=== PATIENT | male | born 1955 | race Caucasian/White ===

== ENCOUNTER 2019-12-17 16:28 | Emergency (ER) | payer OTHER, SELFPAY ==
[2019-12-17 16:35] VITALS: BP 106/69; PULSE 96; RESP 18; TEMP 36.2; O2SAT 100
--- NOTE | 2019-12-17 16:53 | ED.GENADULT ---
HPI - General Adult General Chief complaint: Nausea/Vomiting/Diarrhea Stated complaint: vomiting/anxiety History of Present Illness HPI narrative: Patient is a 64-year-old male with history significant for hypertension and hyperlipidemia presents to the urgent care via POV for evaluation of diarrhea that began approximately 1 week ago. Additionally, patient reports decreased appetite and fluid intake that began today. He states he is also feeling jittery and has concerns about black, tarry stools that began today. He states stools are small . He reports 1 vomiting episode that occurred at 3 am today. Vomitus contents was water as reported via patient. He reports taking ASA 81 mg daily although has been taking ASA 325 mg tablets QID for 3-4 days for chronic neuropathy and chronic low back pain. Denies past abdominal medical history. Pertinent negatives fever, chills, sweats, malaise, recent weight loss, lymphadenopathy, headache, sore throat, dizziness, LOC, urinary sxs, flank pain, extremity paresthesias, bright red bloody stools, nausea, vomiting, diarrhea, constipation, belching, bloating, dry mouth, heartburn, jaundice, vomiting blood, and testicular pain. Related Data Home Medications Medication Instructions Recorded Confirmed hydrochlorothiazide 08/23/19 losartan 08/23/19 rosuvastatin mg 08/23/19 aspirin 12/17/19 Allergies Allergy/AdvReac Type Severity Reaction Status Date / Time No Known Allergies Allergy Verified 08/23/19 08:52 Review of Systems Review of Systems: Narrative: All other systems reviewed and are negative PMFSH Past Medical History Medical History HLD (hyperlipidemia) HTN (hypertension) Surgical History Surgical History No significant past surgical history Social History Social History Smoking status: Unknown if ever smoked Comments I have reviewed and agree with the patient's past medical, surgical, social, and family hx as documented by the RN. There is no relevant family history pertinent to the presenting complaint. Exam Narrative: Exam Narrative: GENERAL: Well-appearing, well-nourished, and in no acute distress. HEAD: Normocephalic, atraumatic. NECK: Supple. No lymphadenopathy or nuchal rigidity. EYES: PERRLA and EOMI. No evidence of erythema, swelling, sunken eyes, or facial swelling appreciated. ENT: Mucous membranes moist and pink. CHEST: Lung sounds are clear to auscultation in bilateral lung leal. No respiratory distress. HEART: Regular rate and rhythm. No murmur, gallop, or rub heard. ABDOMEN: Soft, non-tender, non-distended, normal active bowel sounds in all quadrants. No guarding. No rebound tenderness. No pulsatile or palpable abdominal mass(es). No CVATGU: Bladder non-distended, non-tender : Rectal tone normal. Soft stool palpated. Mucosa matos smooth. Guiac testing positive. Black stool present on external exam. EXTREMITIES: Normal range of motion. No edema. SKIN: Warm, dry, no rash. No skin color changes. Excellent turgor. NEURO: No focal deficits. Alert and oriented x3. PSYCH: appears anxious Course Course Emergency Course: The patient/guardian displays adequate decision making capability and despite a detailed discussion of alternatives, benefits, risks, and consequences refuses EMS transport to ER. Will transport via POV. Vital Signs Vital signs: Vital Signs Temperature 97.1 F L 12/17/19 16:35 Pulse Rate 96 12/17/19 16:35 Respiratory Rate 18 12/17/19 16:35 Blood Pressure 106/69 12/17/19 16:35 Pulse Oximetry 100 12/17/19 16:35 Temperature 97.1 F L 12/17/19 16:35 Pulse Rate 96 12/17/19 16:35 Respiratory Rate 18 12/17/19 16:35 Blood Pressure 106/69 12/17/19 16:35 Pulse Oximetry 100 12/17/19 16:35 Transfer Transfered to:
--- NOTE | 2019-12-17 17:15 | PC.NURSE ---
after evaluation with palliative senior np, requested to be further evaluated in er.
--- NOTE | 2019-12-17 17:29 | PC.NURSE ---
positive hemoccult test done by transmission repairer with rn at bedside.
--- NOTE | 2019-12-17 17:29 | PC.NURSE ---
has neighbor here to provide transportation to er.
== END 2019-12-17 17:32 | disposition short-term general hospital (02) ==
PROVIDERS: Emergency Provider Nurse Practitioner Family
DX: K92.1 Melena (principal); E78.5 Hyperlipidemia, unspecified; I10 Essential (primary) hypertension; Z79.82 Long term (current) use of aspirin; G62.9 Polyneuropathy, unspecified
CPT/HCPCS: 99213; G0463

== ENCOUNTER 2019-12-17 17:50 | Inpatient (IN) | payer OTHER, SELFPAY ==
--- NOTE | ~2019-12-17 | NM_ITS ---
EXAMINATION: NM renal flow and function DATE: 12/18/2019 17:30 CDT INDICATION: Acute renal insufficiency TECHNIQUE: 7.4 mCi Tc-99m MAG3 was administered IV. 40 mg furosemide was administered IV immediately afterward. The patient was scanned in the supine position. A posterior abdominal radionuclide angiog ingrid was obtained. A subsequent time course of static images of the kidneys, ureters, and bladder was obtained. COMPARISON: None FINDINGS: The posterior abdominal radionuclide angiogram and sequential static images show normal siz e, position, and morphology of the kidneys. Peak renal parenchymal uptake was 1.36 min in right kidne y and 1.79 min in left kidney (normal peak 3-5 minutes). The relative early renal uptake was 51% on the right and 49% on the left (<40% is abnormal). No abnormalities of the ureters or bladder are see n. T1/2 for clearance of activity from the right kidney and proximal collecting system was 15.62 minutes . T1/2 for clearance of activity from the left kidney and proximal collecting system was 23.05 minutes. Notes on interpretation: T1/2 <10 minutes is normal, 10-15 minutes is low grade obstruction of questi onable clinical significance, 15-20 minutes is partial obstruction that is likely clinically signific ant, >20 minutes is high grade obstruction. Note that false positives may be seen with supine positio rubio, dehydration, severely dilated nonobstructed kidney, atonic collecting stystem, poor renal funct ion, and chronic furosemide use. IMPRESSION: 1. Symmetric kidney function. 2. Delayed bilateral renal clearance, left greater than right, consistent with medical history of ac [place] renal insufficiency. Reviewed, dictated and finalized at location A. IMPRESSION: 1. Symmetric kidney function. 2. Delayed bilateral renal clearance, left greater than right, consistent with medical history of acute renal insufficiency.
--- NOTE | ~2019-12-17 | XR_ITS ---
EXAMINATION: XR abdomen NG/feed tube insert DATE: 12/19/2019 03:56 INDICATION: Nasogastric tube placement. TECHNIQUE: A semiupright view of the abdomen was obtained. COMPARISON: CT abdomen and pelvis 12/17/2019 FINDINGS: The lower abdomen is excluded. There is mildly dilated small bowel in right abdomen. The co marcel is normal in caliber. The nasogastric tube tip is in the stomach. There is a central line tip in superior vena cava. IMPRESSION: 1. Nasogastric tube tip in the stomach. 2. Mildly dilated small bowel in right abdomen, likely adynamic ileus. Reviewed, dictated and finalized at location A.
--- NOTE | ~2019-12-17 | XR_ITS ---
EXAMINATION: XR chest 2V 12/17/2019 20:25 INDICATION: Chest pain after fall PROCEDURE: 2 view chest COMPARISON: No prior studies for comparison. FINDINGS: The lungs are clear. The cardiomediastinal silhouette is within normal limits. There are no pleural effusions. There is no pneumothorax suspected. IMPRESSION: 1: NO ACUTE CARDIOPULMONARY DISEASE. Reviewed, dictated and finalized at location A.
--- NOTE | ~2019-12-17 | XR_ITS ---
EXAMINATION: XR chest port-a-cath/central DATE: 12/18/2019 12:26 INDICATION: Central line placement. TECHNIQUE: A single frontal view of the chest was obtained on 2 radiographs. COMPARISON: Chest 2 views 12/17/2019 FINDINGS: The chest demonstrates clear lungs without pneumonia, pleural effusion, or pneumothorax. Th e heart size is normal. A right internal jugular central venous catheter is seen with tip in the supe rior vena cava. IMPRESSION: 1. Central line tip in superior vena cava. Reviewed, dictated and finalized at location A.
--- NOTE | ~2019-12-17 | XR_ITS ---
EXAMINATION: XR chest 1V portable EXAM DATE: 12/22/2019 19:32 INDICATION: Pneumonia, fever. TECHNIQUE: Portable AP frontal chest x-ray was obtained. Comparison is made to prior examination from 12/20/2019. FINDINGS: There is a right-sided Farfan catheter in position. There is been resolution of previously seen bilateral edema and/or pneumonia. There is no pneumothorax suspected. There are no pleural effu sions. Cardiomediastinal silhouette is normal. There are mild bony degenerative changes. IMPRESSION: Resolution of previously seen bilateral edema and/or pneumonia. Reviewed, dictated and finalized at location A.
--- NOTE | ~2019-12-17 | CT_ITS ---
EXAMINATION: CT brain wo con DATE: 12/17/2019 19:52 INDICATION: Status post fall. Headache. TECHNIQUE: Computed tomography (CT) of the head was performed without intravenous contrast. The dose- length product was 605.33 mGy-cm. Automated exposure control and iterative reconstruction technique w ere employed. COMPARISON: CT dated 08/23/2019 FINDINGS: There is a chronic left periventricular infarction involving the centrum semiovale bowel of the parietal lobe. Generalized atrophy. No acute intracranial hemorrhage, infarction, mass or mass e ffect. Basilar cisterns are patent. There is intracranial atherosclerosis. There are scattered mild p eriventricular and subcortical white matter changes, most likely related to small vessel ischemic dis ease (microangiopathy). Paranasal sinuses and mastoids are pneumatized. No depressed skull fractures. IMPRESSION: 1. No acute intracranial abnormality. 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 3: Chronic age-related findings. Reviewed, dictated and finalized at location A.
--- NOTE | ~2019-12-17 | XR_ITS ---
EXAMINATION: XR chest 1V portable DATE: 12/20/2019 06:31 INDICATION: Acute renal failure. Pulmonary edema. TECHNIQUE: A single frontal view of the chest was obtained. COMPARISON: Chest single view 12/19/2019, CT abdomen and pelvis 12/17/2019 FINDINGS: There are airspace opacities in the mid and lower lung zones. No pleural effusion or pneumo thorax. The heart size is normal. A right internal jugular central venous catheter is seen with tip i n the superior vena cava. IMPRESSION: 1. Worsened airspace opacities in the mid and lower lung zones, consistent with pulmonary edema versu s pneumonia. Reviewed, dictated and finalized at location A. IMPRESSION: 1. Worsened airspace opacities in the mid and lower lung zones, consistent with pulmonary edema versus pneumonia.
--- NOTE | ~2019-12-17 | US_ITS ---
EXAMINATION: US biopsy renal DATE: 12/23/2019 11:12 INDICATION: Acute renal failure. TECHNIQUE: The procedure including the risks, benefits, and alternatives was discussed with the patie nt. Risks discussed included bleeding and infection. The patient understood the risks and agreed to p roceed. A timeout was performed to verify the patient's name, date of , and procedure to be p erformed. The skin overlying the left kidney was prepped and draped in usual sterile fashion. Anest hetic was administered with 1% lidocaine subcutaneously. An 18 gauge core biopsy needle was then use d to obtain 3 core biopsy specimens under continuous sonographic guidance. The entry site was cleaned and dressed. There were no immediate complications. FINDINGS: Ultrasound images demonstrate the needle in the kidney. IMPRESSION: 1. Ultrasound-guided random left kidney core needle biopsy. Reviewed, dictated and finalized at location A.
--- NOTE | ~2019-12-17 | XR_ITS ---
EXAMINATION: XR fl guide central line place DATE: 12/18/2019 12:03 INDICATION: Central line placement. TECHNIQUE: 2 intraoperative fluoroscopic views of the chest were obtained. I was not present. Fluoros copy exposure time was 51 seconds. COMPARISON: None. FINDINGS: There is a central venous catheter tip overlying superior cavoatrial junction. IMPRESSION: 1. Central venous catheter tip overlying superior cavoatrial junction. Reviewed, dictated and finalized at location A.
--- NOTE | ~2019-12-17 | CT_ITS ---
EXAMINATION: CT abd pelvis lumbar wo con DATE: 12/17/2019 19:52 INDICATION: Abdomen pain after fall TECHNIQUE: Computed tomography (CT) of the abdomen and pelvis was performed without intravenous contr ast. The dose-length product was 1203.53 mGy-cm. Automated exposure control and iterative reconstruct ion technique were employed. COMPARISON: None. FINDINGS: Bibasilar dependent atelectasis. Heart size normal. Small hiatal hernia. There is atheroscl erosis. The liver, spleen, pancreas, adrenal glands are unremarkable. There is bilateral symmetric perinephri c stranding, likely chronic. No renal stones or hydronephrosis. Small amount of free fluid in the pelvis. Nonobstructive bowel gas pattern. Bladder wall is prominent , although likely due to underdistention. Colonic diverticulosis without evidence for diverticulitis. No free air. Moderate lumbar spondylosis. No acute osseous abnormality. IMPRESSION: 1. No acute abdominal abnormality. Reviewed, dictated and finalized at location A.
--- NOTE | ~2019-12-17 | CT_ITS ---
EXAMINATION: CT cervical spine wo con DATE: 12/17/2019 19:52 INDICATION: Neck pain after fall TECHNIQUE: Computed tomography (CT) of the cervical spine was performed without intravenous contrast. The dose-length product was 358 mGy-cm. Automated exposure control and iterative reconstruction tech nique were employed. COMPARISON: No prior studies for comparison. FINDINGS: There is mild levocurvature of the cervical spine. Odontoid process within normal limits. S traightening of cervical lordosis. There is degenerative anterolisthesis at C3-4. There is disc narro wing at C3-4, C4-5, C5-6 and C6-7. There is multilevel facet and uncinate hypertrophy with right neur al foraminal narrowing at C3-4. Odontoid process within normal limits. Lung apices are unremarkable. There is carotid atherosclerosis. No acute fracture or traumatic malalignment. IMPRESSION: 1. No acute fracture. 2: Moderate-severe cervical spondylosis. Reviewed, dictated and finalized at location A.
--- NOTE | ~2019-12-17 | XR_ITS ---
EXAMINATION: XR chest 1V portable DATE: 12/19/2019 03:56 INDICATION: Acute renal failure. Pulmonary edema. TECHNIQUE: A single frontal view of the chest was obtained. COMPARISON: Chest single view 12/18/2019, CT abdomen and pelvis 12/17/2019 FINDINGS: The chest demonstrates clear lungs without pneumonia, pleural effusion, or pneumothorax. Th e heart size is normal. The nasogastric tube tip is beyond the inferior margin of the radiograph, but at least to the stomach. A right internal jugular central venous catheter is seen with tip in the meeks perior vena cava. IMPRESSION: 1. No acute cardiopulmonary disease. Reviewed, dictated and finalized at location A.
--- NOTE | ~2019-12-17 | US_ITS ---
US abdomen complete DATE: 12/18/2019 15:25 INDICATION: Thrombocytopenia. Renal failure. TECHNIQUE: Real-time imaging of the abdomen COMPARISON: 12/17/2019 CT abdomen pelvis FINDINGS: The pancreas is obscured by bowel gas. No hepatic space-occupying mass lesion is evident. Normal hepatic portal venous flow direction. Normal splenic size. No gallstones or gallbladder wall thickening or abnormal pericholecystic fluid collection. Negative s onographic Morris's sign. The common bile duct measures 4.2 mm, normal. The right kidney measures 13.1 cm length, left kidney 13 cm. No renal mass lesion or hydronephrosis i s evident. Normal caliber of the abdominal aorta. The inferior vena cava is unremarkable. IMPRESSION: Pancreas is obscured; otherwise unremarkable examination Reviewed, dictated and finalized at Location A. Reviewed, dictated and finalized at location A.
[2019-12-17 17:57] VITALS: BP 140/81; PULSE 86; RESP 20; TEMP 36.4; O2SAT 95
[2019-12-17] MEDS: PANTOPRAZOLE SODIUM IV 40 MG VIAL IV PUSH (18:39)
[2019-12-17] MEDS: SODIUM CHLORIDE 0.9% IV 1,000 ML 999 ML (18:39)
[2019-12-17 18:40] VITALS: BP 136/90; PULSE 80; RESP 16; O2SAT 98
--- NOTE | 2019-12-17 18:43 | ED.GENADULT ---
HPI - General Adult General Chief complaint: GI Bleed <HUSSEIN Balderas Last Filed: 12/17/19 21:03> Stated complaint: GI BLEED FROM URGENT CARE <HUSSEIN Balderas Last Filed: 12/17/19 21:03> Time Seen by Provider: 12/17/19 17:56 <HUSSEIN Balderas Last Filed: 12/17/19 21:03> Source: patient <HUSSEIN Balderas Last Filed: 12/17/19 21:03> Mode of arrival: ambulatory <HUSSEIN Balderas Last Filed: 12/17/19 21:03> History of Present Illness HPI narrative: Patient is a 64-year-old male who presents to emergency department for evaluation of rectal bleeding noting dark loose stools over the last several days. Patient also notes he has had some dark emesis over the last couple of days. A week ago patient notes that he may have passed out on striking his head and bruised his right posterior back and is also complained of low back pain since. Patient notes he has been drinking alcohol over the last week typically having 3 whiskey drinks a day. Patient denies other falls in the one last week was not seen for that. Patient notes he has been lightheaded and dizzy and feeling more fatigued. Patient also notes some mild discomfort in the left lower abdomen. Patient states he has been taking an aspirin in the last week as well. Patient denies history of GI bleeding. Patient lives at home by himself <HUSSEIN Balderas Last Filed: 12/17/19 21:03> Related Data Home medications: Home Medications Medication Instructions Recorded Confirmed hydrochlorothiazide 08/23/19 losartan 08/23/19 rosuvastatin mg 08/23/19 aspirin 12/17/19 <HUSSEIN Balderas Last Filed: 12/17/19 21:03> Allergies/adverse reactions: Allergies Allergy/AdvReac Type Severity Reaction Status Date / Time No Known Allergies Allergy Verified 12/17/19 18:11 <HUSSEIN Balderas Last Filed: 12/17/19 21:03> Review of Systems Review of Systems: All systems reviewed & are unremarkable except as noted in HPI and below <HUSSEIN Balderas Last Filed: 12/17/19 21:03> [facility] Past Medical History Medical History: Medical History HLD (hyperlipidemia) HTN (hypertension) <Wally Bardales PA-C - Last Filed: 12/17/19 21:03> Surgical History Surgical History: Surgical History No significant past surgical history <Wally Bardales PA-C - Last Filed: 12/17/19 21:03> Social History Social History: Social History Smoking status: Unknown if ever smoked Gender identity (if verbalized by the patient): Male <Wally Bardales PA-C - Last Filed: 12/17/19 21:03> Exam Narrative: Exam Narrative: GENERAL: Ill-appearing, well-nourished, and in no acute distress. HEAD: Normocephalic, healing abrasion to the parietal scalp EYES: PERRLA and EOMI. ENT: Nares clear, no rhinorrhea or epistaxis. Mucous membranes moist. Oropharynx without tonsillar hypertrophy exudate or other lesions. NECK: Supple. No adenopathy or masses. CHEST: Clear to auscultation. No respiratory distress. No wheezes rales or rhonchi. Bruising and tenderness to the right paraspinal thoracic region. HEART: Regular rate and rhythm. No murmur heard. Normal peripheral pulses. ABDOMEN: Soft, left lower abdominal tenderness to palpation, nondistended, normal active bowel sounds. EXTREMITIES: Normal range of motion. No edema. No midline cervical or thoracic tenderness. Midline lumbar tenderness SKIN: Warm, dry, no rash. NEURO: No focal deficits. Alert and oriented x3. Cranial nerves II through XII grossly intact PSYCH: Normal mood and affect. <Wally Bardales PA-C - Last Filed: 12/17/19 21:03> Course Course Emergency Course: Patient in the room in no distress aware of case findings treatment plan and
[2019-12-17 19:03] LABS: Add Urine Microscopic? YES; Appearance Urine Clear (Clear); Bilirubin Urine Negative (Negative); Blood Urine 2+ (Negative); Color Urine Straw (Yellow); Glucose Urine UA 1+ mg/dL (Negative); Ketones Urine Negative (Negative); Leukocyte Esterase Ur Negative LEU/UL (Negative); Nitrate Urine Negative (Negative); Protein Urine 1+ mg/dL (Negative); Specific Grav Ur 1.011 (1.001-1.035); Squamous Epithelial Cell Urine Rare /hpf (Few); Urobilinogen Urine Negative mg/dL (<2.0); WBC Urine 0-3 /hpf
[2019-12-17 19:08] LABS: Basophils Percent Auto 0.2 % (0.2-1.2); Eosinophils Percent Auto 0.4 % (0-4.4); Hematocrit 23.3 % (42.0-52.0); Hemoglobin 8.5 g/dL (14.0-18.0); Immature Granulocyte Absolute 0.05 K/mm3 (0.00-0.031); Lymphocytes Absolute Auto 0.35 K/mm3 (0.9-3.2); Lymphocytes Percent Auto 7.1 % (18.3-44.2); Mean Corpuscular HGB Conc 36.5 g/dl (32-36); Mean Corpuscular Hemoglobin 31.3 pg (26-34); Mean Corpuscular Volume 85.7 fl (80-100); Mean Platelet Volume 8.8 fl (7.4-10.4); Monocytes Absolute Auto 0.4 K/mm3 (0.1-0.6); Monocytes Percent Auto 8.7 % (2.6-8.5); Neutrophils Absolute Auto 4.1 K/mm3 (1.3-6.7); Neutrophils Percent Auto 82.6 % (45.5-73.1); Platelet Count Result 111 k/mm3 (150-375); Red Blood Count 2.72 M/mm3 (4.6-6.20); Red Cell Distribution Width 13.2 % (11.5-14.5); White Blood Count 4.9 K/mm3 (4.5-10.0)
[2019-12-17 19:22] LABS: Alanine Aminotransferase 28 U/L (4-50); Albumin Level 3.1 g/dL (3.5-5.1); Alkaline Phosphatase 45 U/L (38-126); Aspartate Amino Transferase 33 U/L (17-59); Bilirubin,Total 0.3 mg/dL (0.2-1.3); Calcium 7.5 mg/dL (8.4-10.2); Carbon Dioxide 14 mmol/L (22-30); Chloride 75 mmol/L (98-107); Glucose 113 mg/dL (75-110); Lipase 389 U/L (23-300); Potassium 4.8 mmol/L (3.4-5.0); Sodium 114 mmol/L (137-145)
[2019-12-17 19:27] LABS: Estimated CRCL calculation 5 ml/min; Estimated Glomerular Filt Rate 3
[2019-12-17 19:31] LABS: Blood Urea Nitrogen 206 mg/dL (9-20)
--- NOTE | 2019-12-17 19:38 | ECG_ITS ---
Measurements Intervals [place] Rate: 86 P: 29 DC: 174 QRS: -10 QRSD: 96 T: 14 QT: 354 QTc: 424 Interpretive Statements SINUS RHYTHM LOW QRS VOLTAGE IN PRECORDIAL LEADS CANNOT RULE OUT SEPTAL INFARCT, AGE INDETERMINATE BORDERLINE T WAVE ABNORMALITY- INFERIOR LEADS BASELINE ARTIFACT- I, III, AVL, AVF, V2 ABNORMAL ECG Electronically Signed On 12-18-2019 7:07:39 CDT by Km Hebert D.O.
[2019-12-17 19:52] VITALS: BP 133/99; PULSE 85; RESP 18; O2SAT 100
[2019-12-17 20:03] LABS: Creatine Kinase 244 U/L (55-170)
[2019-12-17] MEDS: ONDANSETRON INJ 4 MG/2 ML VIAL IV PUSH (20:32)
[2019-12-17 20:53] LABS: INR 1.1; Prothrombin Time 13.7 Seconds (11.1-14.7)
[2019-12-17 20:58] LABS: Calcium 7.7 mg/dL (8.4-10.2); Carbon Dioxide 13 mmol/L (22-30); Chloride 76 mmol/L (98-107); Glucose 115 mg/dL (75-110); Potassium 4.9 mmol/L (3.4-5.0); Sodium 116 mmol/L (137-145)
[2019-12-17 20:59] LABS: Barbiturate Screen Urine Negative (Negative); Benzodiazepines Screen Urine Negative (Negative)
[2019-12-17 21:03] LABS: Amphetamine Screen Urine Negative (Negative); Cannabinoid Screen Urine Negative (Negative); Cocaine Screen Urine Negative (Negative); Methadone Screen Urine Negative (Negative); Opiate Screen Urine Negative (Negative); Phencyclidine Screen Urine Negative (Negative)
[2019-12-17 21:05] LABS: Estimated CRCL calculation 5 ml/min; Estimated Glomerular Filt Rate 3
[2019-12-17 21:06] LABS: Blood Urea Nitrogen 208 mg/dL (9-20)
--- NOTE | 2019-12-17 22:11 | PM.CNNEP ---
Assessment and Plan Assessment and plan (1) Acute kidney injury: Code(s): N17.9 - Acute kidney failure, unspecified Status: Acute Assessment and Plan: The patient has renal failure. He does have a primary care physician who follows him for his blood pressure. Unfortunately we do not have any old records on this patient. So it is hard to know whether how much of this is acute and how much of this is chronic. The CT scan did show the kidneys and did not mention small kidneys so I suspect that at least some of this is acute. However since he has so few symptoms with this tremendously high BUN this could not be very acute. I suspect that the creatinine and BUN have been rising over several weeks not just 1 week are else I think he would be more symptomatic. At this point I am going to proceed as if this is acute. Etiology is unclear. One possibility is obstruction. He does have prostatic symptoms already and so could have just an obstructed prostate. However he did get a bladder scan a few minutes ago and he only had about 100cc in the bladder. He does not have dullness to percussion in his suprapubic area either. His CT scan did not show hydronephrosis. Another possibility might be chronic hypertension. However I would think that he would have already had chronic kidney disease as seen on labs when following his blood pressure with his primary care physician. So I doubt if this is being going on for a very long time and hypertension does not usually affect the kidneys in a matter of weeks or months. Another possibility would be glomerulonephritis. His urine does show some protein and some blood. He does not have any extrarenal manifestations of inflammation however such as symptoms of lupus, Bobo's, or cryoglobulinemia. We will check for all these though. Another possibility would be infiltrative diseases such is multiple myeloma or sarcoidosis. We will check for these as well. Rhabdomyolysis could do this. His CPK is elevated but not by much. I suppose it is possible that were seeing the tail end of this if it happened when he fell a week ago and he was lying there longer then he realized. If this is the case then his CPK is already down and we will just give him supportive care. He has a low platelet count. I looked at his blood smear and there are no schistocytes. I do not think he has TTP. We can check an LDH just in case he has some hemolysis though. I think the low platelet count is probably due to alcohol. Dehydration could do this. He has been nauseated however he has been drinking lots of fluid. I do not think he looks all that dehydrated on physical exam either. Vascular disease is always a possibility. We can check a renal scan if things are not more apparent soon. He does drink somewhat heavily but his liver looks okay on CT and he does not have ascites so I doubt that this is hepatorenal syndrome. At this point will get serology and immunofixation. Will get a renal ultrasound and bladder ultrasound. We will given some IV fluids. If things do not get better by morning and we should consider dialysis tomorrow. (2) Gastrointestinal bleed: Code(s): K92.2 - Gastrointestinal hemorrhage, unspecified Status: Acute Assessment and Plan: The patient has guaiac-positive stools. He is anemic. This could be from GI bleeding or from the kidneys or both. Sometimes people with chronic kidney disease can develop gastritis. (3) Acute hyponatremia: Code(s): E87.1 - Hypo-osmolality and hyponatremia Status: Acute Assessment and Plan: The patient has a very low sodium. He has been drinking all that fluid to try to get enough urine to pass the drug screen. This is probably just delusional because of that plus his renal failure. He is on hydrochlorothiazide but that is not doing anything at this BUN and creatinine. I do not want to correct this too quickly. So all
[2019-12-17 22:21] VITALS: BP 137/82; PULSE 88; RESP 18; O2SAT 100
[2019-12-17 22:50] VITALS: BP 132/75; PULSE 83; PULSE 86; RESP 20; TEMP 37; O2SAT 100; BMI 29.0
[2019-12-17] MEDS: FUROSEMIDE INJ 40 MG/4 ML VIAL IV PUSH (22:52)
[2019-12-17 22:56] VITALS: PULSE 88; RESP 18; O2SAT 100
--- NOTE | 2019-12-17 23:02 | PM.IMHP ---
H&P: HPI History of Present Illness Chief complaint: Renal failure and uremia, inadequate venous access Narrative: This is a pleasant 64 year old male with known history of chronic HTN and hyperlipidemia who presented to the hospital with a complaint of dark black stools for the past several days. Apparently the patient reports that he suffered a fall about a week ago and hit his head but can't tell me any significant details regarding what happened. He isn't sure if he had a seizure or actually passed out. He does report that his scalp bled quite a bit. The patient reports that he drinks 3 whisky shots daily although he has been drinking much more since his has been away visiting family. He also reports that he has vomited up dark emesis yesterday and today. Associated symptoms include anxiety, nausea, shakiness, decreased urine output, and generalized weakness. He denies any fever, cough, shortness of breath, abdominal pain, dysuria, hematuria, diarrhea, or chest pain. The patient takes aspirin but denies any blood thinners. He has no previous history of GI bleeding and his last colonoscopy was 2 years ago and he states it was unremarkable at that time. Tonight in the ER the patient was found to have an H/H of 8.5/23.3. His serum sodium was 114 mEq/dl and his Cr was 17.8 w/ a BUN of 206. ER provider has consulted GI specialist and Nephrology, Dr. Kern. The patient has no other complaints. Review of Systems Review of Systems: All systems reviewed & are unremarkable except as noted in HPI and below PMFSH Past Medical History Medical History HLD (hyperlipidemia) HTN (hypertension) Neuropathy Surgical History Surgical History No significant past surgical history Family History Family History Sibling Acute myocardial infarction Mother Acute myocardial infarction Hypertension Father Acute myocardial infarction Coronary artery disease Social History Social History Smoking packs per day: 1.5 Smoking cigarettes per day: 30.0 Years smoked: 15 Smoking pack-years: 22.50 Smoking status: Former smoker Tobacco type: cigarettes Alcohol intake: current Drinks per week: 14 Substance use: never Substance use type: does not use Gender identity (if verbalized by the patient): Male Spiritual care concerns: No Agree to blood products: Yes Meds Home Medications and Allergies Home Medications Medication Instructions Recorded Confirmed Type hydrochlorothiazide 25 mg PO DAILY 08/23/19 12/17/19 History losartan 100 mg PO DAILY 08/23/19 12/17/19 History acetaminophen [Tylenol] 650 mg PO Q4-6H PRN 12/17/19 12/18/19 History aspirin 81 mg PO DAILY 12/17/19 12/17/19 History rosuvastatin 40 mg PO HS 12/17/19 12/17/19 History aspirin 325 mg PO DAILY PRN 12/18/19 12/18/19 History Allergies Allergy/AdvReac Type Severity Reaction Status Date / Time No Known Allergies Allergy Verified 12/17/19 23:49 Vital Signs Vital Signs - 24 hr 12/17/19 17:57 12/17/19 18:40 12/17/19 19:52 Temperature 36.4 C L Pulse Rate 86 80 85 Respiratory Rate 20 16 18 Blood Pressure 140/81 136/90 133/99 H Pulse Oximetry 95 98 100 12/17/19 22:21 Temperature Pulse Rate 88 Respiratory Rate 18 Blood Pressure 137/82 Pulse Oximetry 100 Exam Const: General: cooperative, alert, awake and anxious Nutritional Appearance: well nourished Orientation/consciousness: patient oriented x3 HENMT: Head: other (Scalp laceration on left posterior parietal area about 3 cm in length+++) General nose exam: Normal external nose present Face and sinus: normal facial exam Mouth: Yes other (Ecchymosis of right anterior aspect of tongue+++ ) Eyes: Pupils: Equal, round and reactive pupils present EOM: E
--- NOTE | 2019-12-17 23:29 | ADMGEN ---
This patient, Saleem Reyes, was admitted to IMU Room 231-01 on 12/17/19 at 2250. Patient/family oriented to hospital policies and general routines including ID bracelet, bed and alarms, visiting hours, pain management, procedures, bathroom and other care routines, personal items, smoking policy, room service/diet, and visiting hours. Valuables list has been completed. Information on how to activate the Rapid Response Team has been discussed. Patient/Family are encouraged to report perceived risks to care and to ask questions if they do not understand what they are told or what they should do.
[2019-12-17 23:40] LABS: Hematocrit 22.2 % (42.0-52.0); Hemoglobin 8.1 g/dL (14.0-18.0)
[2019-12-18] VITALS (24 sets, daily range): BP systolic 101–131; BP diastolic 63–98; PULSE 68–88; RESP 14–22; TEMP 35.9–36.9; O2SAT 94–100
[2019-12-18 00:04] LABS: Creatine Kinase 260 U/L (55-170)
[2019-12-18 00:12] LABS: Complement C3 84 mg/dL (88-165)
[2019-12-18 00:15] LABS: Sodium 115 mmol/L (137-145)
[2019-12-18] MEDS: LORAZEPAM INJ 2 MG/ML VIAL 1 MG IV PUSH (00:30)
[2019-12-18 00:36] LABS: Thyroid Stimulating Hormone 0.859 uIU/mL (0.465-4.680)
[2019-12-18 00:58] LABS: Erythrocyte Sedimentation Rate > 140 mm/hr (0-20)
[2019-12-18 01:11] LABS: Folic Acid 14.8 ng/mL (2.76->20)
[2019-12-18 01:34] LABS: Creatinine Urine 41.6 mg/dL; Total Protein Urine Random 49 mg/dL
[2019-12-18 01:36] LABS: Glucose Point of Care 101 (65-105)
[2019-12-18 01:48] LABS: Sodium Urine Random 56 meq/L
[2019-12-18 05:22] LABS: Calcium 7.2 mg/dL (8.4-10.2); Carbon Dioxide 10 mmol/L (22-30); Chloride 80 mmol/L (98-107); Estimated CRCL calculation 4 ml/min; Estimated Glomerular Filt Rate 3; Glucose 94 mg/dL (75-110); Magnesium 2.3 mg/dL (1.6-2.3); Potassium 4.4 mmol/L (3.4-5.0); Sodium 116 mmol/L (137-145)
[2019-12-18 05:59] LABS: Glucose Point of Care 93 (65-105)
[2019-12-18 06:17] LABS: Blood Urea Nitrogen 218 mg/dL (9-20)
[2019-12-18 06:50] LABS: Albumin Level 2.7 g/dL (3.5-5.1)
[2019-12-18] MEDS: SODIUM CHLORIDE 0.9% IV 1,000 ML 100 ML IV CONT (07:56)
[2019-12-18] MEDS: THIAMINE HCL 200 MG/2 ML VIAL 100 MG IV PUSH (07:56)
[2019-12-18 08:02] LABS: Thyroid Stimulating Hormone Reflex 0.634 uIU/mL (0.465-4.68)
--- NOTE | 2019-12-18 08:49 | WPDGICN ---
Assessment and Plan Assessment and plan (1) Anemia: Code(s): D64.9 - Anemia, unspecified Status: Acute Assessment and Plan: Anemia likely multifactorial. Stool is occult blood positive suggesting at least some component GI blood loss. Given history of dark stools possible history of coffee-ground emesis a week ago would cover with proton pump inhibitor for the possible stress gastritis. Cannot exclude ulcer disease. Will treat empirically and monitor hemoglobin for now. Consider EGD evaluation when renal status more stable. (2) Occult blood in stools: Code(s): R19.5 - Other fecal abnormalities Status: Acute Assessment and Plan: No active bleeding identified. Stool is confirmed to be Hemoccult-positive. As stated above will continue to treat with proton pump inhibitor for possible stress gastritis. GI endoscopy when renal status felt more stable. (3) Renal failure: Code(s): N19 - Unspecified kidney failure Status: Acute Assessment and Plan: Profound azotemia identified. Patient has at least some component of acute renal insufficiency. It is uncertain if there was a chronic component. I understand dialysis is anticipated. In this will take priority over GI workup at this juncture. We will follow with you. (4) Acute hyponatremia: Code(s): E87.1 - Hypo-osmolality and hyponatremia Status: Acute (5) Alcohol abuse: Code(s): F10.10 - Alcohol abuse, uncomplicated Status: Acute (6) HTN (hypertension): Code(s): I10 - Essential (primary) hypertension Status: Acute GI Consult Note Consult date/time: 12/18/19 08:49 HPI: Saleem Reyes is a 64 year old male seen at the request of the emergency room and the hospitalist service. Patient reports having had a black stool 1 week ago. Over the last week has had general malaise prompting him to go to the emergency room. In the emergency room he was found to have a sodium of 114 and markedly elevated BUN and creatinine consistent with renal failure. Patient was found to be anemic with Hemoccult-positive stools. Patient denies any abdominal pain. He does have history of black stools 1 week ago on 1 episode apparently this did not persist social history is significant for routine alcohol intake perhaps 3 whiskeys a day for some time. His family history is noncontributory. He denies any prior history of GI blood loss. Review of Systems Review of Systems: All systems reviewed & are unremarkable except as noted in HPI and below PMFSH Past Medical History Medical History HLD (hyperlipidemia) HTN (hypertension) Neuropathy Surgical History Surgical History No significant past surgical history Family History Family History Sibling Acute myocardial infarction Mother Acute myocardial infarction Hypertension Father Acute myocardial infarction Coronary artery disease Social History Social History Smoking packs per day: 1.5 Smoking cigarettes per day: 30.0 Years smoked: 15 Smoking pack-years: 22.50 Smoking status: Former smoker Tobacco type: cigarettes Alcohol intake: current Drinks per week: 14 Substance use: never Substance use type: does not use Gender identity (if verbalized by the patient): Male Spiritual care concerns: No Agree to blood products: Yes Meds Home Medications and Allergies Home Medications Medication Instructions Recorded Confirmed Type hydrochlorothiazide 25 mg PO DAILY 08/23/19 12/17/19 History losartan 100 mg PO DAILY 08/23/19 12/17/19 History acetaminophen [Tylenol] 650 mg PO Q4-6H PRN 12/17/19 12/18/19 History aspirin 81 mg PO DAILY 12/17/19 12/17/19 History rosuvastatin 40 mg PO HS 12/17/19 12/17/19 History aspirin
[2019-12-18 09:15] LABS: Hematocrit 17.3 % (42.0-52.0); Hemoglobin 6.3 g/dL (14.0-18.0)
[2019-12-18 09:27] LABS: Calcium 7.2 mg/dL (8.4-10.2); Carbon Dioxide 11 mmol/L (22-30); Chloride 80 mmol/L (98-107); Glucose 98 mg/dL (75-110); Potassium 4.3 mmol/L (3.4-5.0); Sodium 117 mmol/L (137-145)
[2019-12-18 09:28] LABS: Basophils Percent Auto 0.3 % (0.2-1.2); Eosinophils Absolute Auto 0.1 K/mm3 (0-0.3); Eosinophils Percent Auto 1.8 % (0-4.4); Immature Granulocyte Absolute 0.04 K/mm3 (0.00-0.031); Lymphocytes Absolute Auto 0.49 K/mm3 (0.9-3.2); Lymphocytes Percent Auto 12.5 % (18.3-44.2); Mean Corpuscular HGB Conc 36.4 g/dl (32-36); Mean Corpuscular Hemoglobin 31.8 pg (26-34); Mean Corpuscular Volume 87.4 fl (80-100); Mean Platelet Volume 9.6 fl (7.4-10.4); Monocytes Absolute Auto 0.4 K/mm3 (0.1-0.6); Monocytes Percent Auto 11.3 % (2.6-8.5); Neutrophils Absolute Auto 2.9 K/mm3 (1.3-6.7); Neutrophils Percent Auto 73.1 % (45.5-73.1); Platelet Count Result 117 k/mm3 (150-375); Red Blood Count 1.98 M/mm3 (4.6-6.20); Red Cell Distribution Width 13.3 % (11.5-14.5); White Blood Count 3.9 K/mm3 (4.5-10.0)
--- NOTE | 2019-12-18 09:29 | PM.IMPN ---
Progress Note: A&P Assessment and Plan (1) Gastrointestinal bleed: Qualifiers: GI bleed type/associated pathology: unspecified gastrointestinal hemorrhage type Qualified Code(s): K92.2 - Gastrointestinal hemorrhage, unspecified Code(s): K92.2 - Gastrointestinal hemorrhage, unspecified Status: Acute Assessment and Plan: GI consulted and appreciate input. Discussed with Dr. Nelson this morning who suspects maybe stress gastritis. Continue IV Protonix. Will stop IV Pepcid. Initial plan is to treat kidney issues 1st and possible EGD later. Hemoglobin early this morning 8.1 but recent hemoglobin has now dropped to 6.3. Additional testing in process. Will continue to monitor closely. Transfuse as needed. GI and nephrology as well as surgery all notified of lower hemoglobin by nursing. (2) Acute kidney injury: Code(s): N17.9 - Acute kidney failure, unspecified Status: Acute Assessment and Plan: Nephrology consulted and appreciate input. Creatinine hirer at 18.[address] for Lane catheter placement today followed by hemodialysis. Renal ultrasound and Lexiscan renal scan both pending. Additional workup in progress. Will continue to monitor. (3) Acute hyponatremia: Code(s): E87.1 - Hypo-osmolality and hyponatremia Status: Acute Assessment and Plan: Sodium still low but increased to 117 today. Nephrology following as noted above. Home diuretics and losartan on hold. IV fluids remain in place. Will continue to monitor. (4) Thrombocytopenia: Code(s): D69.6 - Thrombocytopenia, unspecified Status: Acute Assessment and Plan: Likely secondary to chronic alcoholism. Platelets 117,000 on last check and stable. Will continue to monitor. (5) HTN (hypertension): Qualifiers: Hypertension type: essential hypertension Qualified Code(s): I10 - Essential (primary) hypertension Code(s): I10 - Essential (primary) hypertension Status: Acute Assessment and Plan: Blood pressure reviewed on 12/18/2019 and stable without medication. Will continue to monitor. Telemetry reviewed on 12/18/2019 with sinus rhythm. (6) Alcohol abuse: Code(s): F10.10 - Alcohol abuse, uncomplicated Status: Acute Assessment and Plan: [facility] protocol. Continue lorazepam as needed. Continue seizure precautions for now. (7) Metabolic acidosis: Code(s): E87.2 - Acidosis Status: Acute Assessment and Plan: Secondary to acute renal failure. Carbon dioxide 11 today. Will continue to monitor other treatments. (8) HLD (hyperlipidemia): Qualifiers: Hyperlipidemia type: unspecified Qualified Code(s): E78.5 - Hyperlipidemia, unspecified Code(s): E78.5 - Hyperlipidemia, unspecified Status: Acute Assessment and Plan: Rosuvastatin on hold. (9) DVT prophylaxis: Code(s): Z29.9 - Encounter for prophylactic measures, unspecified Status: Acute Assessment and Plan: SCDs. Time Spent With Patient Time with patient: 15 - 25 minutes Subjective Date/time seen: 12/18/19 09:29 Interval history: Date of Service: 12/18/2019. Admitted with GI bleed, acute kidney injury and hyponatremia. Patient awake this morning. He denies feeling lightheaded or dizzy. No chest pain or shortness of breath. No abdominal pain, nausea or vomiting. Review of Systems Constitutional: Constitutional: Denies chills and Denies fever(s) ENT: Denies epistaxis Cardiovascular: Cardiovascular: Denies chest pain and Denies palpitations Respiratory: Respiratory: Denies dyspnea Gastrointestinal: Gastrointestinal: Denies abdominal pain, Denies melena, Denies nausea and Denies vomiting Genitourinary: Genitourinary: Reports no additional male genitourinary complaints Musculoskeletal: Musculoskeletal: Reports no additional musculoskeletal complaints Integumentary/Breasts: Skin/Regina
[2019-12-18 09:30] LABS: Estimated CRCL calculation 4 ml/min; Estimated Glomerular Filt Rate 3
[2019-12-18 09:30] LABS: Hemoglobin 6.3 g/dL (14.0-18.0)
[2019-12-18 09:31] LABS: Hematocrit 17.3 % (42.0-52.0)
[2019-12-18 09:36] LABS: Blood Urea Nitrogen 218 mg/dL (9-20)
--- NOTE | 2019-12-18 09:48 | WPDANESEPPF ---
Anes - Initial Pre Proc Eval Procedure: Operation Date: 12/18/19 10:30 Proposed Procedures p Insertion Duraflow Tunnel Dialysis Catheter - Servando Bobby MD Date/Time: 12/18/19 09:48 Surgeon: Arturo Chester MD Pre Op Diagnosis: Acute kidney injury/hyponatreamia/anemia/GI bleed Patient Data Age: 64 Gender: M Height: 6 ft 2 in Weight: 102.9 kg Last Vital Signs Temp 36.3 C L 12/18/19 08:00 Pulse 84 12/18/19 08:00 Resp 20 12/18/19 08:00 BP 124/67 12/18/19 08:00 Pulse Ox 100 12/18/19 08:00 Allergies Allergy/AdvReac Type Severity Reaction Status Date / Time No Known Allergies Allergy Verified 12/17/19 23:49 Home Medications Medication Instructions Recorded Confirmed Type hydrochlorothiazide 25 mg PO DAILY 08/23/19 12/17/19 History losartan 100 mg PO DAILY 08/23/19 12/17/19 History acetaminophen [Tylenol] 650 mg PO Q4-6H PRN 12/17/19 12/18/19 History aspirin 81 mg PO DAILY 12/17/19 12/17/19 History rosuvastatin 40 mg PO HS 12/17/19 12/17/19 History aspirin 325 mg PO DAILY PRN 12/18/19 12/18/19 History Laboratory Tests 12/17/19 12/17/19 12/17/19 18:17 18:51 19:00 WBC 4.9 K/mm3 K/mm3 (4.5-10.0) RBC 2.72 M/mm3 L M/mm3 (4.6-6.20) Hgb 8.5 g/dL L g/dL (14.0-18.0) Hct 23.3 % L % (42.0-52.0) MCV 85.7 fl fl (80-100) MCH 31.3 pg pg (26-34) MCHC 36.5 g/dl H g/dl (32-36) RDW 13.2 % % (11.5-14.5) Plt Count 111 k/mm3 L k/mm3 (150-375) MPV 8.8 fl fl (7.4-10.4) Immature Gran % (Auto) 1.0 % H % (0-0.5) Neut % (Auto) 82.6 % H % (45.5-73.1) Lymph % (Auto) 7.1 % L % (18.3-44.2) [place] % (Auto) 8.7 % H % (2.6-8.5) Eos % (Auto) 0.4 % % (0-4.4) Baso % (Auto) 0.2 % % (0.2-1.2) Lymph # (Auto) 0.35 K/mm3 L K/mm3 (0.9-3.2) [place] # (Auto) 0.4 K/mm3 K/mm3 (0.1-0.6) Eos # (Auto) 0.0 K/mm3 K/mm3 (0-0.3) Baso # (Auto) 0.0 K/mm3 K/mm3 (0.0-0.1) Abs Immat Gran (auto) 0.05 K/mm3 H K/mm3 (0.00-0.031) Absolute Neuts (auto) 4.1 K/mm3 K/mm3 (1.3-6.7) Absolute Nucleated RBC 0.0 K/mm3 K/mm3 (0.0-0.012) Nucleated RBC % 0.0 % % (0.0-0.2) ESR PT INR APTT Sodium Potassium Chloride Carbon Dioxide BUN Creatinine Estim Creat Clear Calc Estimated GFR Glucose POC Capillary Glucose Serum Osmolality Lactic Acid Calcium Phosphorus Magnesium Total Bilirubin AST ALT Alkaline Phosphatase Total Creatine Kinase Total Protein Albumin Lipase Angiotensin Convert Enz Vitamin B12 Folate TSH TSH (Reflex) Random Cortisol Urine Color Straw (Yellow) Urine Appearance Clear (Clear) Urine pH 6.0 (5.0-9.0) Ur Specific [place] 1.011 (1.001-1.035) Urine Protein 1+ mg/dL H mg/dL (Negative) Urine Glucose (UA) 1+ mg/dL H mg/dL (Negative) Urine Ketones Negative mg/dL mg/dL (Negative) Ur Blood (Man) 2+ H (Negative) Urine Nitrate Negative (Negative) Urine Bilirubin Negative (Negative) Urine Urobilinogen Negative mg/dL mg/dL (<2.0) Leukocyte Esterase Rfl Negative JACQUELINE/UL JACQUELINE/UL (Negative) Urine RBC 3-5 /hpf H /hpf (0-2) Urine WBC 0-3 /hpf /hpf Ur Squamous Epith Cells Rare /hpf /hpf (Few) Urine Eosinophils Urine Osmolality U Random Total Protein Ur Random Sodi
[2019-12-18 09:51] LABS: Hepatitis B Surface Antigen Negative (Negative)
[2019-12-18 10:06] LABS: Lactate Dehydrogenase 631 U/L (313-618)
[2019-12-18] MEDS: SODIUM CHLORIDE 0.9% IV 500 ML 30 ML IV CONT (10:09)
[2019-12-18] MEDS: ceFAZolin 2 GM/D5W 50 ML 2 GM/50 ML BAG IVPB (11:09)
[2019-12-18] MEDS: LIDO 1%/EPINEPHRINE 1:100,000 20 ML VIAL INFILTRATE (11:34)
[2019-12-18] MEDS: HEPARIN SODIUM 5,000 UNITS/ML VIAL 5000 UNITS IRRIGATION (11:35)
[2019-12-18] MEDS: HEPARIN SODIUM, PORCINE 10,000 UNITS/10 ML VIAL 10 UNITS IV PUSH (11:36)
--- NOTE | 2019-12-18 12:24 | PM.PNNEP ---
Progress Note: A&P Assessment and Plan (1) Acute kidney injury: Code(s): N17.9 - Acute kidney failure, unspecified Status: Acute Assessment and Plan: The patient has renal failure. Ultrasound is ordered and pending. 2+ blood 1+ glucose and 1+ protein. There are 3-5 red cells per high-power field. Urine electrolytes are non pre renal C3 is low barely and C4 is normal. Other serology is pending. The immunofixation tests are pending. Angiotensin-converting enzymes is pending CPK is barely elevated. LDH is mildly high at 631 Platelet count joaquin to 117 Tox screen was negative. Etiology is still not clear. Considerations: 1. Obstruction is ruled out by CT. We have a renal ultrasound pending. 2. Vascular disease: I doubt if this is arterial thrombosis but a renal scan has been ordered. TTP is possible because of his low platelet count and elevated LDH and dropping hemoglobin but I did not see she has to sites on his smear last night. With the drop in hemoglobin I asked them to have Dr. Mcadams look at the smear just to be sure I did miss anything and I will consult Hematology. 3. ATN is possible but I do not know what the inciting event would of been. Perhaps this is the tail end of rhabdomyolysis when he fell the other day. 4. He does not look pre renal to me. 5. Chronic disease such as hypertension or diabetes. We will try to get old records from his primary care. 6. GN. C3 is slightly low. he has blood and protein in the urine. consider pulse steroids and biopsy if the ultrasound doesn't show small scarred kidneys. 7. He does have an alcohol history but his liver enzymes are all okay and I do not think that this is hepatorenal syndrome. 8. Infiltrative diseases. Angiotensin converting enzyme is pending but his chest x-ray does not look like sarcoid. He is a little old. Myeloma is always a possibility as well especially with the low platelet count and hemoglobin. Dr. Clinton to see today. Long discussion with the patient. Is going to need dialysis. I am not sure if is going to be acute or chronic. We will know more as the tests come back. Long discussion with spouse about all of this as well. 25min were spent in discussions with spouse, patient, Dr Clinton, apart from clinical activity. (2) Gastrointestinal bleed: Qualifiers: GI bleed type/associated pathology: unspecified gastrointestinal hemorrhage type Qualified Code(s): K92.2 - Gastrointestinal hemorrhage, unspecified Code(s): K92.2 - Gastrointestinal hemorrhage, unspecified Status: Acute Assessment and Plan: The patient has guaiac-positive stools. He is anemic. This could be from GI bleeding or from the kidneys or both. Sometimes people with chronic kidney disease can develop gastritis. (3) Acute hyponatremia: Code(s): E87.1 - Hypo-osmolality and hyponatremia Status: Acute Assessment and Plan: The patient has a very low sodium. This has corrected slowly. He is not making urine and so probably will not overcorrect. He is going to get dialysis and so will watch the sodium closely. Will dialyze against the lowest possible sodium bath. He will also be a very short dialysis. Will try to keep the sodium from correcting more than 8 in a 24 hour period. (4) HTN (hypertension): Qualifiers: Hypertension type: essential hypertension Qualified Code(s): I10 - Essential (primary) hypertension Code(s): I10 - Essential (primary) hypertension Status: Acute Assessment and Plan: Blood pressure is well controlled. We will hold blood pressure medications for now. (5) Neuropathy: Code(s): G62.9 - Polyneuropathy, unspecified Status: Acute Assessment and Plan: Chronic Subjective Date/time seen: 12/18/19 12:24 Interval history: Patient is just out of surgery for his PermCath. Overnight he only made 500cc of urine. Review of Systems
--- NOTE | 2019-12-18 12:52 | SUR.PHASEI ---
1248 - dr. williamson at bedside talking with pt
--- NOTE | 2019-12-18 13:51 | P.OP_ITS ---
Procedure Note - Detailed Date of procedure: 12/18/19 Pre-op diagnosis: Renal failure and uremia, inadequate venous access Acute on chronic renal failure with uremia, inadequate venous access Post-op diagnosis: same Procedure performed: Placement right internal jugular tunneled DuraFlow central venous catheter under fluoroscopy Description of procedure: The patient was taken to surgery and IV sedation was administered. The right neck and right upper chest were prepped and draped. Local anesthesia was infiltrated in the right neck over the area of the internal jugular vein. The carotid artery was cannulated a couple of times but then, with the patient in steep Trendelenburg, I was able to cannulate the right internal jugular vein and pass a guidewire into the superior vena cava. The position of the guidewire was documented with fluoroscopy. I chose a 36 cm Dura Flow catheter. Using fluoroscopy I mapped out the path of the catheter so that the tip would be in the distal superior vena cava and right atrial junction. I marked several counter incisions in the right neck where I would later tunneled the catheter up to the exit site of the guidewire. Local anesthetic was infiltrated over each of these counter incisions and at the exit point of the guidewire. Incisions were created at each site. I then tunneled the Dura Flow catheter retrograde starting just above the right clavicle and proceeding up the neck and eventually out the opening where the guidewire was exiting. Under fluoroscopy, I then passed serial dilators over the guidewire. Finally the largest dilator with the sheath was passed over the guidewire into the superior vena cava. The guidewire and introducer were removed. The Dura Flow catheter was passed into the sheath and down into the superior vena cava. The sheath was then removed. I checked the path of the Dura Flow catheter under fluoroscopy. The tip was in good position at the distal SVC right atrial junction. The curve in the Dura Flow catheter did not have any kinks or twists that I could appreciate. Both ports aspirated blood easily and flushed well with heparin. Final flush was delivered to each port and each port was then capped. I then closed each of the counter incisions with subcuticular interrupted 4 O Vicryl suture. Four 0 Vicryl subcuticular suture were placed at the exit site of the Dura Flow catheter to occlude this site more fully. Three 0 nylon was used to suture the Dura Flow catheter to the skin. The counter incisions were dressed with Exofin surgical adhesive. The exit site of the catheter was dressed with gauze and Tegaderm. The patient was awakened and taken to recovery in good condition. Sponge and needle counts were correct x2. Implants: 36 cm tunneled Dura Flow catheter Anesthesia: MAC and local (0.5% Marcaine with epinephrine) Surgeon: Servando Bobby MD Bottom Pounder Cement Shoes: Rashawn PENDLETON Estimated blood loss (mL): 10 Drains: No Packing: No Pathology: none sent Complications: None Condition: stable Disposition: PACU Findings: Catheter tip in the distal SVC right atrial junction
[2019-12-18 13:56] LABS: Hematocrit 17.2 % (42.0-52.0); Hemoglobin 6.2 g/dL (14.0-18.0)
[2019-12-18 14:13] LABS: Carbon Dioxide 11 mmol/L (22-30); Chloride 80 mmol/L (98-107); Glucose 110 mg/dL (75-110); Potassium 4.3 mmol/L (3.4-5.0); Sodium 117 mmol/L (137-145)
[2019-12-18 14:15] LABS: Estimated CRCL calculation 5 ml/min; Estimated Glomerular Filt Rate 3
[2019-12-18 14:19] LABS: Glucose Point of Care 115 (65-105)
[2019-12-18 14:19] LABS: Blood Urea Nitrogen 215 mg/dL (9-20)
[2019-12-18 15:02] LABS: Hepatitis B Surface Anti Res Indeterminate; Hepatitis C Virus Antibody Negative (Negative)
[2019-12-18 16:06] LABS: Glucose Point of Care 148 (65-105)
--- NOTE | 2019-12-18 16:20 | WPDCNINT ---
Assessment and Plan Assessment and plan (1) Acute kidney injury: Code(s): N17.9 - Acute kidney failure, unspecified Status: Acute Assessment and Plan: patient presented with generalized weakness, fall lethargy. Patient was found to have acute kidney injury with creatinine of 17 and BUN greater than 200. - CK levels were slightly elevated - appreciate Nephrology evaluation recommendation - patient had a dialysis catheter placed by surgery today - patient with at the dialysis center way he had a large bowel movement and probably had a vagal response. - patient likely hypovolemic, will require dialysis soon (2) Gastrointestinal bleed: Qualifiers: GI bleed type/associated pathology: unspecified gastrointestinal hemorrhage type Qualified Code(s): K92.2 - Gastrointestinal hemorrhage, unspecified Code(s): K92.2 - Gastrointestinal hemorrhage, unspecified Status: Acute Assessment and Plan: patient with large dark black stools, drop in hemoglobin - continue Protonix infusion - anemia, will transfuse packed RBCs - GI has been consulted - GI bleed most likely upper GI, possible varices as patient has alcohol abuse (3) Anemia: Code(s): D64.9 - Anemia, unspecified Status: Acute Assessment and Plan: hemoglobin of 5.6 the ICU, will transfuse packed RBCs - H&H q.6 hours - GI is following the patient (4) Alcohol abuse: Code(s): F10.10 - Alcohol abuse, uncomplicated Status: Acute Assessment and Plan: patient has a history of alcohol abuse - continue CIWA protocol in p.r.n. Ativan - on thiamine and folic acid - patient still tremulous, if CIWA scores worsen will start Precedex (5) Metabolic acidosis: Code(s): E87.2 - Acidosis Status: Acute Assessment and Plan: metabolic acidosis is multifactorial significantly low bicarb levels likely secondary to uremia, GI bleed and bowel movement, volume loss - patient given 2 amps of bicarb, started patient on a bicarb drip at 50 mL/hour. Discussed with Nephrology, agrees with the plan (6) Acute hyponatremia: Code(s): E87.1 - Hypo-osmolality and hyponatremia Status: Acute Assessment and Plan: acute hyponatremia could be related to acute renal failure, alcohol abuse, free water polydipsia - patient on sodium bicarb infusion, will increase sodium levels gradually 0.5 mEq per hour - nephrology following the patient (7) Thrombocytopenia: Code(s): D69.6 - Thrombocytopenia, unspecified Status: Acute Assessment and Plan: thrombocytopenia with acute renal failure and altered mental status could be related TTP, no schistocytes were noted peripheral smear - hematology consulted - platelets could also be decreased due to alcoholism - LFTs within normal limits (8) Encephalopathy: Code(s): G93.40 - Encephalopathy, unspecified Status: Acute Assessment and Plan: encephalopathy likely multifactorial, could be a alcohol withdrawal, hyponatremia, uremia, anemia Additional Plan code status: Full code Critical care time spent: 44 minutes Due to a high probability of clinically significant, life threatening deterioration, the patient required my highest level of preparedness to intervene emergently and I personally spent this critical care time directly and personally managing the patient. This critical care time included obtaining a history; examining the patient; pulse oximetry; ordering and review of studies; arranging urgent treatment with development of a management plan; evaluation of patient's response to treatment; frequent reassessment; and discussions with other providers. It was exclusive of separately billable procedures and treating other patients and teaching time. Please see Assessment and Plan section and the rest of the note for further information on patient assessment and treatment [facility] Consult Note C
[2019-12-18 16:53] LABS: Reticulocyte Hemoglobin Conten 33.8 pg (28.2-35.7); Reticulocyte Percent 0.78 % (0.7-4.3); Reticulocytes Absolute 0.01 B/L (32.2-175.7)
[2019-12-18 16:53] LABS: Mean Corpuscular HGB Conc 36.1 g/dl (32-36); Mean Corpuscular Hemoglobin 31.1 pg (26-34); Mean Corpuscular Volume 86.1 fl (80-100); Mean Platelet Volume 8.7 fl (7.4-10.4); Platelet Count Result 126 k/mm3 (150-375); Red Cell Distribution Width 13.1 % (11.5-14.5); White Blood Count 7.4 K/mm3 (4.5-10.0)
[2019-12-18 16:57] LABS: Lactic Acid Reflex 0.7 mmol/L (0.7-2.1)
[2019-12-18 17:00] LABS: Hemoglobin 5.6 g/dL (14.0-18.0)
[2019-12-18 17:01] LABS: Hematocrit 15.5 % (42.0-52.0); INR 1.2; Prothrombin Time 14.5 Seconds (11.1-14.7)
[2019-12-18 17:02] LABS: Partial Thromboplastin Time 27.5 SECONDS (22.3-36.8)
[2019-12-18 17:17] LABS: Band Neutrophils Percent 7 % (0-6); Hypochromasia 2+ (NORMAL); Lymphocytes Absolute Manual 0.44 K/mm3 (1.1-4.5); Monocytes Absolute Manual 0.29 K/mm3 (0.1-0.90); Monocytes Percent Manual 4 % (3-9); Neutrophils Absolute Manual 6.66 K/mm3 (1.3-6.7); Neutrophils Percent Manual 83 % (46-73); Total Cells Counted 100
[2019-12-18 17:18] LABS: Alanine Aminotransferase 22 U/L (4-50); Albumin Level 2.5 g/dL (3.5-5.1); Alkaline Phosphatase 37 U/L (38-126); Anisocytosis 1+ (NORMAL); Aspartate Amino Transferase 27 U/L (17-59); Bilirubin,Total 0.1 mg/dL (0.2-1.3); Calcium 6.8 mg/dL (8.4-10.2); Carbon Dioxide 15 mmol/L (22-30); Chloride 80 mmol/L (98-107); Estimated CRCL calculation 5 ml/min; Estimated Glomerular Filt Rate 3; Glucose 136 mg/dL (75-110); Magnesium 2.2 mg/dL (1.6-2.3); Phosphorus 6.5 mg/dL (2.5-4.5); Potassium 4.2 mmol/L (3.4-5.0); Sodium 119 mmol/L (137-145)
[2019-12-18 17:21] LABS: Blood Urea Nitrogen 215 mg/dL (9-20)
[2019-12-18 17:39] LABS: Iron 140 ug/dL (49-181)
[2019-12-18 17:48] LABS: Percent Iron Saturation 70 % (20-50)
[2019-12-18] MEDS: SODIUM CHLORIDE 0.9% IV 250 ML 50 ML (18:44)
--- NOTE | 2019-12-18 18:49 | PC.NURSE ---
recieved pt to unit at 1615 via bed, pt alert and oriented x 3, moves all exts, lab here and joseph blood see charting
[2019-12-18] MEDS: SODIUM BICARBONATE 8.4% 150 MEQ in DEXTROSE 5% 1,000 ML 950 ML 50 MEQ IV CONT (21:28)
[2019-12-18 23:32] LABS: Hematocrit 18.5 % (42.0-52.0); Hemoglobin 6.5 g/dL (14.0-18.0)
[2019-12-19] VITALS (36 sets, daily range): BP systolic 88–137; BP diastolic 50–97; PULSE 62–86; RESP 13–22; TEMP 36.4–37; O2SAT 92–100
[2019-12-19 00:07] LABS: Glucose Point of Care 154 (65-105)
[2019-12-19] MEDS: SODIUM CHLORIDE 0.9% IV 250 ML 30 ML IV CONT (01:20)
[2019-12-19 04:29] LABS: Alveolar/Arterial O2 Gradient 31.4 mmHg; Base Excess ABG -8.6 mEq/l (+/-2.0); Carboxyhemoglobin 0.3 % THb (0-2.0); Fractional Inspired Oxygen 21 %; HCO3 ABG 14.7 mEq/l (22.0-26.0); Methemoglobin ABG 0.4 %THb (0-1.5); Oxygen Content ABG 12.9 %vol (16.0-22.0); Oxygen Saturation ABG 97.1 % (95.0-100.0); Oxyhemoglobin 94.9 % THb (90.0-100.0); PO2 ABG 89.8 mmHg (80.0-100.0); PO2 FiO2 Ratio Arterial Blood 4.28 %; Reduced Hemoglobin 4.4 %THb (0-5.0); Total Hemoglobin 9.6 g/dL (12.0-18.0); pH ABG 7.408 (7.350-7.450)
[2019-12-19 04:32] LABS: Device ROOM AIR; Modified Allen's Test Pass; PCO2 ABG 23.8 mmHg (35.0-45.0); Site Drawn RIGHT RADIAL
[2019-12-19 06:08] LABS: Glucose Point of Care 185 (65-105)
[2019-12-19 08:12] LABS: Hematocrit 21.2 % (42.0-52.0); Hemoglobin 7.7 g/dL (14.0-18.0); Mean Corpuscular HGB Conc 36.3 g/dl (32-36); Mean Corpuscular Hemoglobin 30.9 pg (26-34); Mean Corpuscular Volume 85.1 fl (80-100); Mean Platelet Volume 8.7 fl (7.4-10.4); Platelet Count Result 106 k/mm3 (150-375); Red Blood Count 2.49 M/mm3 (4.6-6.20); Red Cell Distribution Width 13.2 % (11.5-14.5)
[2019-12-19 08:20] LABS: Ammonia < 9 umol/L (9-30)
[2019-12-19 08:22] LABS: INR 1.1; Prothrombin Time 13.7 Seconds (11.1-14.7)
[2019-12-19 08:24] LABS: Lactic Acid 0.6 mmol/L (0.7-2.1)
[2019-12-19 08:30] LABS: Calcium 6.7 mg/dL (8.4-10.2); Carbon Dioxide 14 mmol/L (22-30); Chloride 79 mmol/L (98-107); Glucose 187 mg/dL (75-110); Magnesium 2.3 mg/dL (1.6-2.3); Phosphorus 7.4 mg/dL (2.5-4.5); Sodium 119 mmol/L (137-145)
[2019-12-19] MEDS: THIAMINE HCL 200 MG/2 ML VIAL 100 MG IV PUSH (08:36)
[2019-12-19 08:39] LABS: Estimated CRCL calculation 5 ml/min; Estimated Glomerular Filt Rate 3
[2019-12-19 08:43] LABS: Potassium 4.5 mmol/L (3.4-5.0)
--- NOTE | 2019-12-19 09:03 | WPDANESEPPF ---
Anes - Initial Pre Proc Eval Procedure: Operation Date: 12/19/19 09:30 Proposed Procedures p Esophagogastroduodenoscopy - Peter Nelson MD Date/Time: 12/19/19 09:03 Surgeon: Leslie Pre Op Diagnosis: Renal failure and uremia, inadequate venous access Patient Data Age: 64 Gender: M Height: 1.88 m Weight: 104.9 kg Last Vital Signs Temp 36.6 C 12/19/19 08:00 Pulse 75 12/19/19 08:00 Resp 14 12/19/19 08:00 BP 118/66 12/19/19 08:00 Pulse Ox 97 12/19/19 08:00 Allergies Allergy/AdvReac Type Severity Reaction Status Date / Time No Known Allergies Allergy Verified 12/17/19 23:49 Home Medications Medication Instructions Recorded Confirmed Type hydrochlorothiazide 25 mg PO DAILY 08/23/19 12/17/19 History losartan 100 mg PO DAILY 08/23/19 12/17/19 History acetaminophen [Tylenol] 650 mg PO Q4-6H PRN 12/17/19 12/18/19 History aspirin 81 mg PO DAILY 12/17/19 12/17/19 History rosuvastatin 40 mg PO HS 12/17/19 12/17/19 History aspirin 325 mg PO DAILY PRN 12/18/19 12/18/19 History Laboratory Tests 12/17/19 12/17/19 12/18/19 18:00 18:17 00:10 WBC RBC Hgb Hct MCV MCH MCHC RDW Plt Count MPV Immature Gran % (Auto) Neut % (Auto) Lymph % (Auto) Angelina % (Auto) Eos % (Auto) Baso % (Auto) Lymph # (Auto) Angelina # (Auto) Eos # (Auto) Baso # (Auto) Abs Immat Gran (auto) Absolute Neuts (auto) Absolute Nucleated RBC Total Counted Neutrophils % (Manual) Band Neutrophils % Lymphocytes % (Manual) Monocytes % (Manual) Nucleated RBC % Abs Neuts (Manual) Abs Lymphs (Manual) Abs Monocytes (Manual) Platelet Estimate Hypochromasia Anisocytosis Absolute Retic Percent Retic Immature Retic Fraction Retic Hgb Content Haptoglobin PT INR APTT [id number] Activity [id number] Activity Intrp Puncture Site ABG pH ABG pCO2 ABG pO2 ABG PO2/FiO2 Ratio ABG HCO3 ABG O2 Saturation ABG O2 Content ABG Base Excess A-a Gradient Oxyhemoglobin Carboxyhemoglobin Methemoglobin Reduced Hemoglobin Total Hemoglobin O2 Delivery Device O2 Liters/Min FiO2 Sodium Potassium Chloride Carbon Dioxide BUN Creatinine Estim Creat Clear Calc Estimated GFR Glucose POC Capillary Glucose Lactic Acid Calcium Phosphorus Magnesium Iron TIBC % Saturation Ferritin Total Bilirubin AST ALT Alkaline Phosphatase Ammonia Lactate Dehydrogenase Total Protein Albumin Urine Eosinophils see below Hep Bs Antigen Hep Bs Antibody Hep B Core Total Ab Hepatitis Be Antibody Hepatitis C Ab Screen Blood Type A Positive Antibody Screen Negative MARY, Poly Interpret Negative Crossmatch See Detail 12/18/19 12/18/19 12/18/19 08:54 09:01 09:01 WBC 3.9 K/mm3 L K/mm3 (4.5-10.0) RBC 1.98 M/mm3 L M/mm3 (4.6-6.20) Hgb 6.3 g/dL L* g/dL 6.3 g/dL L* g/dL
[2019-12-19 09:35] LABS: Blood Urea Nitrogen 212 mg/dL (9-20)
[2019-12-19] MEDS: SODIUM CHLORIDE 0.9% IV 500 ML 30 ML (10:15)
--- NOTE | 2019-12-19 10:15 | PM.PNNEP ---
Progress Note: A&P Assessment and Plan (1) Acute kidney injury: Code(s): N17.9 - Acute kidney failure, unspecified Status: Acute Assessment and Plan: The patient has renal failure. Ultrasound shows normal size kidneys with no echogenicity. Renal scan shows uptake and some excretion but decreased throughout. 2+ blood 1+ glucose and 1+ protein. There are 3-5 red cells per high-power field. Urine electrolytes are non pre renal C3 is low barely and C4 is normal. Other serology is pending. The immunofixation tests are pending. Angiotensin-converting enzymes is pending Anca is pending CPK is barely elevated. LDH is mildly high at 631 Platelet count dropped to 106. Tox screen was negative. Etiology is still not clear. Considerations: 1. Obstruction is not an issue. 2. Vascular disease: Renal scan shows blood flow to both kidneys. TTP is possible because of his low platelet count. No schistocytes seen on peripheral smear by Dr. Mcadams. Dr. Clinton is on the case 3. ATN is possible but I do not know what the inciting event would of been. Perhaps this is the tail end of rhabdomyolysis when he fell the other day. 4. He does not look pre renal to me. 5. Chronic disease such as hypertension or diabetes. We will try to get old records from his primary care. 6. GN. C3 is slightly low. he has blood and protein in the urine. Repeat the urinalysis. See with the serology shows. Repeat the C3. Consider biopsy next week. I hesitate to use steroids in this situation because of his multiple morbidities. 7. He does have an alcohol history but his liver enzymes are all okay and I do not think that this is hepatorenal syndrome. He is getting a scope today. We will see if he has varices. If he does then this would bring hepatorenal syndrome higher on the list but not much. This is a diagnosis of exclusion and he has a lot to exclude. In addition is urine sodium is not absent making this less likely. 8. Infiltrative diseases. Angiotensin converting enzyme is pending but his chest x-ray does not look like sarcoid. He is a little old for this. Myeloma is always a possibility as well especially with the low platelet count and hemoglobin. Dr. Clinton to see today. Long discussion with Dr. Kirk and with Dr. Nelson as well as the patient. (2) Gastrointestinal bleed: Qualifiers: GI bleed type/associated pathology: unspecified gastrointestinal hemorrhage type Qualified Code(s): K92.2 - Gastrointestinal hemorrhage, unspecified Code(s): K92.2 - Gastrointestinal hemorrhage, unspecified Status: Acute Assessment and Plan: The patient has guaiac-positive stools. He is anemic. He is getting scope today because of the large amount of blood he had in his stool last night. (3) Acute hyponatremia: Code(s): E87.1 - Hypo-osmolality and hyponatremia Status: Acute Assessment and Plan: The patient has a very low sodium. This has corrected slowly. It is now up to 119 (4) HTN (hypertension): Qualifiers: Hypertension type: essential hypertension Qualified Code(s): I10 - Essential (primary) hypertension Code(s): I10 - Essential (primary) hypertension Status: Acute Assessment and Plan: Blood pressure is well controlled. We will hold blood pressure medications for now. (5) Neuropathy: Code(s): G62.9 - Polyneuropathy, unspecified Status: Acute Assessment and Plan: Chronic Subjective Date/time seen: 12/19/19 10:15 Interval history: Patient is now in ICU. He was in dialysis and just had been hooked up when he had a bloody bowel movement and fainted. Alert was called. The patient was given fluids and improved. Was transferred to the ICU. Now the patient is a little bit shaky and tremulous. He says he is cold. No chest pain or shortness of breath Review of Systems Cardiovascular: Cardiovascular
--- NOTE | 2019-12-19 10:38 | PM.OP ---
Procedure Note - Brief Procedure Note - Brief Date of procedure: 12/19/19 Pre-op diagnosis: Renal failure and uremia, inadequate venous access Surgeon: Peter Nelson MD Procedure is EGD with biopsy. Instrument Fujinon video endoscope. Preop diagnosis GI bleeding. Postop diagnosis 1. Distal esophagitis. 2. Duodenal ulcer. Description of procedure. Informed consent is obtained from the patient the risks benefits alternatives indications are discussed agree to prior to the procedure the risks include but are not limited to adverse reaction to medications including allergies. The risk of bleeding. The risk of perforation in the risks for missed pathology patient voiced clear in standing agreed to proceed. Sedation is accomplished by anesthesia. Description procedure Fujinon video endoscope passed to the esophagus which reveals significant erythema superficial erosions the distal 8cm of the esophagus. This may have been the source of recent blood loss. No varices are identified. The GE junction is located at 40 cm from the esophagus. Stomach is in its entirety including U-turn is normal. Duodenum reveals a 8-10 mm ulcer in the duodenal sweep. Not actively bleeding at this time. Biopsy is taken from the body of the stomach and sent for H pylori rapid urease testing which initially is proved to be negative. Impression 1. Duodenal ulcer. 2. Distal esophagitis. No longer actively bleeding. Plan is for nonsteroidal anti-inflammatory agents to be held. Proton pump inhibitor will be continued initially Protonix 40 mg twice a day. Diet will be allowed is a liquid diet initially and advanced as tolerated. NG tube will be discontinued. We will continue monitor hemoglobin closely and transfuse as necessary.
[2019-12-19 10:44] LABS: Hemoglobin 7.4 g/dL (14.0-18.0)
[2019-12-19 10:59] LABS: Hematocrit 20.7 % (42.0-52.0)
[2019-12-19] MEDS: PANTOPRAZOLE SODIUM IV 40 MG VIAL IV PUSH ×2 (11:10→20:24)
[2019-12-19] MEDS: FOLIC ACID 1 MG/0.2 ML INJ IV PUSH (11:10)
[2019-12-19 11:32] LABS: Glucose Point of Care 191 (65-105)
--- NOTE | 2019-12-19 12:27 | PM.PNGS ---
Progress Note: A&P Assessment and Plan (1) Encounter for care related to vascular access port: Code(s): Z45.2 - Encounter for adjustment and management of vascular access device Status: Acute Assessment and Plan: IT APPEARED CLEARS THE BLEEDING HAS STOPPED AT EXIT SITE OF THE DURA FLOW CATHETER. LEAVE DRESSING DRY AND INTACT FOR NOW. OKAY TO GO AHEAD WITH DIALYSIS TODAY. WILL PROBABLY CHANGE DRESSING TOMORROW AND REASSESS. (2) Renal failure: Code(s): N19 - Unspecified kidney failure Status: Chronic Assessment and Plan: DIALYSIS PLANNED LATER TODAY. Subjective Subjective Date/Time Seen: 12/19/19 12:27 Mental status back to baseline. Nursing reports that Dura Flow catheter site quit bleeding about 1:00 a.m. today. Exam Chest: Chest palpation & inspection: abnormal inspection of the chest ( Dressing and dried blood noted right subclavian area. No active bleeding) Objective Data Vital Signs Vital Signs: Vital Signs - 24 hr 12/18/19 12:40 12/18/19 12:55 12/18/19 13:15 Temperature Pulse Rate 80 82 68 Pulse Rate [Monitor] 76 Respiratory Rate 18 16 Blood Pressure 118/69 103/75 105/68 Pulse Oximetry 100 100 12/18/19 13:41 12/18/19 14:00 12/18/19 16:00 Temperature 35.9 C L Pulse Rate 71 71 81 Pulse Rate [Monitor] Respiratory Rate 16 Blood Pressure 105/68 Pulse Oximetry 100 12/18/19 16:20 12/18/19 17:37 12/18/19 18:00 Temperature 36.6 C 36.9 C 36.4 C Pulse Rate 74 79 79 Pulse Rate [Monitor] Respiratory Rate 19 17 14 Blood Pressure 112/76 105/68 114/98 H Pulse Oximetry 100 100 97 12/18/19 19:00 12/18/19 20:00 12/18/19 20:46 Temperature 36.7 C 36.2 C L 36.4 C Pulse Rate 78 78 80 Pulse Rate [Monitor] Respiratory Rate 22 H 16 16 Blood Pressure 101/70 102/77 117/66 Pulse Oximetry 100 96 100 12/18/19 21:00 12/19/19 00:00 12/19/19 01:35 Temperature 36.4 C L 37.0 C Pulse Rate 86 81 86 Pulse Rate [Monitor] Respiratory Rate 16 18 16 Blood Pressure 112/76 118/72 121/97 H Pulse Oximetry 100 100 98 12/19/19 01:58 12/19/19 02:00 12/19/19 02:58 Temperature 36.8 C 36.6 C Pulse Rate 80 80 81 Pulse Rate [Monitor] Respiratory Rate 18 20 Blood Pressure 128/63 125/70 Pulse Oximetry 99 97 12/19/19 02:59 12/19/19 03:58 12/19/19 04:00 Temperature 36.6 C 36.6 C Pulse Rate 81 77 73 Pulse Rate [Monitor] Respiratory Rate 20 16 Blood Pressure 125/70 126/67 Pulse Oximetry 97 100 12/19/19 04:35 12/19/19 05:01 12/19/19 05:16 Temperature 36.6 C 36.6 C 36.5 C Pulse Rate 74 74 78 Pulse Rate [Monitor] Respiratory Rate 18 18 22 H Blood Pressure 130/70 130/70 105/55 L Pulse Oximetry 98 98 98 12/19/19 06:00 12/19/19 06:16 12/19/19 07:35 Temperature 36.4 C 36.6 C 36.6 C Pulse Rate 78 72 79 Pulse Rate [Monitor] Respiratory Rate 16 20 22 H Blood Pressure 137/68 128/67 126/71 Pulse Oximetry 98 96 98 12/19/19 08:00 12/19/19 10:00 12/19/19 10:05 Temperature 36.4 C Pulse Rate 78 76 79 Pulse Rate [Monitor] Respiratory Rate 18 22 H Blood Pressure 118/66 122/67 Pulse Oximetry 96 94 12/19/19 12:00 Temperature 36.6 C Pulse Rate 67 Pulse Rate [Monitor] 68 Respiratory Rate 14 Blood Pressure 103/64 Pulse Oximetry 94 Intake/Output Intake/Output: Intake & Output 12/16/19 12/17/19 12/18/19 12/19/19 23:59 23:59 23:59 23:59 Intake Total 1000 1805.2 1350 Output Total 120 700 650 Balance 880 1105.2 700 Meds/Results Medications: Active Medications Generic Name Dose Route Start Last Admin Trade Name Freq PRN Reason Stop Dose Admin Folic Acid 1 mg 12/19/19 09:00 12/19/19 11:10 Folic Acid Inj IV PUSH 1 mg QAM DONNA Administration Sodium Bicarbonate 150 meq/ 1,100 mls @ 50 mls/hr 12/18/19 18:00 12/18/19 21:28 Dextrose IV CONT 50 mls/hr .Q22H DONNA Administration Lorazepam 1 mg 12/17/19 22:57 12/18/19 00:30 Ativan Inj IV PUSH 1 mg Q4H PRN Administration
--- NOTE | 2019-12-19 13:36 | PM.IMPN ---
Progress Note: A&P Assessment and Plan (1) Gastrointestinal bleed: Qualifiers: GI bleed type/associated pathology: unspecified gastrointestinal hemorrhage type Qualified Code(s): K92.2 - Gastrointestinal hemorrhage, unspecified Code(s): K92.2 - Gastrointestinal hemorrhage, unspecified Status: Acute Assessment and Plan: GI consulted and appreciate input. Patient with large melanotic stools yesterday with subsequent further decrease in hemoglobin. Patient now S/P EGD today with distal esophagitis and duodenal ulcers seen. Now on clear liquids. Continue IV Protonix. Continue to monitor hemoglobin and hematocrit. Transfuse as needed. Discussed with game breeding farm manager. As long as patient stable after hemodialysis, plan to transfer from ICU. Patient has now completed hemodialysis with blood pressure remaining stable. Will transfer to IMU today. (2) Anemia: Qualifiers: Anemia type: other cause Other causes of anemia: acute posthemorrhagic Qualified Code(s): D62 - Acute posthemorrhagic anemia Code(s): D64.9 - Anemia, unspecified Status: Acute Assessment and Plan: Most likely result of GI bleed as noted. Hemoglobin did drop to 6.3 prior to hemodialysis catheter placement yesterday. Hemoglobin 5.6 after large melanotic stool. Patient transfused total of 3 units PRBC in the past 24 hours. Last hemoglobin 7.4. Will continue to monitor and transfuse as needed. (3) Acute kidney injury: Code(s): N17.9 - Acute kidney failure, unspecified Status: Acute Assessment and Plan: Nephrology consulted and appreciate input. Creatinine remains high. Renal ultrasound with normal kidneys. All renal scan with symmetric kidney function and delayed bilateral renal clearance left greater than right consistent with medical history of acute renal insufficiency. Additional workup in progress. Lane catheter placed on 12/18/2019. Hemodialysis today. Will continue to monitor. (4) Duodenal ulcer: Code(s): K26.9 - Duodenal ulcer, unspecified as acute or chronic, without hemorrhage or perforation Status: Acute Assessment and Plan: Also as noted on EGD. Continue IV Protonix. (5) Esophagitis: Code(s): K20.9 - Esophagitis, unspecified Status: Acute Assessment and Plan: As noted on EGD. Continue IV Protonix. (6) Acute hyponatremia: Code(s): E87.1 - Hypo-osmolality and hyponatremia Status: Acute Assessment and Plan: Sodium slowly to continues to increase and now up to 119. On sodium bicarb IV at this point. Continue to follow. Nephrology following as noted above. (7) Thrombocytopenia: Code(s): D69.6 - Thrombocytopenia, unspecified Status: Acute Assessment and Plan: Likely secondary to chronic alcoholism. Platelets 106,000 today without much change. Will continue to monitor. (8) HTN (hypertension): Qualifiers: Hypertension type: essential hypertension Qualified Code(s): I10 - Essential (primary) hypertension Code(s): I10 - Essential (primary) hypertension Status: Acute Assessment and Plan: Blood pressure reviewed on 12/19/2019 and stable without medication. Will continue to monitor. Telemetry reviewed on 12/19/2019 with sinus rhythm. (9) Alcohol abuse: Code(s): F10.10 - Alcohol abuse, uncomplicated Status: Acute Assessment and Plan: [facility] protocol. No sign of withdrawal this time. Continue lorazepam as needed. Continue seizure precautions for now. (10) Metabolic acidosis: Code(s): E87.2 - Acidosis Status: Acute Assessment and Plan: Secondary to acute renal failure. Remains on IV bicarb as noted above. (11) HLD (hyperlipidemia): Qualifiers: Hyperlipidemia type: unspecified Qualified Code(s): E78.5 - Hyperlipidemia, unspecified Code(s): E78.5 - Hyperlipidemia, unspecified Status: Acut
--- NOTE | 2019-12-19 14:00 | WPDINTPN ---
Progress Note: A&P Assessment and Plan (1) Acute kidney injury: Code(s): N17.9 - Acute kidney failure, unspecified Status: Acute Assessment and Plan: patient presented with generalized weakness, fall lethargy. Patient was found to have acute kidney injury with creatinine of 17 and BUN greater than 200. - CK levels were slightly elevated - appreciate Nephrology evaluation recommendation - patient had a dialysis catheter placed by surgery on 12/18/2019 - on 12/18/2019 while patient was at the dialysis center he had a large bowel movement and probably had a vagal response. was transferred to the ICU for further management - Patient will be dialyzed today ( 12/19/2019) per Nephrology (2) Gastrointestinal bleed: Qualifiers: GI bleed type/associated pathology: unspecified gastrointestinal hemorrhage type Qualified Code(s): K92.2 - Gastrointestinal hemorrhage, unspecified Code(s): K92.2 - Gastrointestinal hemorrhage, unspecified Status: Acute Assessment and Plan: patient with large dark black stools, drop in hemoglobin - transfused 3 units of packed RBCs - EGD showed duodenal ulcer and esophagitis - discontinued octreotide and IV Protonix infusion - place patient on IV Protonix q.12 hours per GI - may start clear liquids (3) Anemia: Code(s): D64.9 - Anemia, unspecified Status: Acute Assessment and Plan: hemoglobin of 5.6 the ICU, receive 3 units of packed RBCs - H&H q.6 hours - GI is following the patient (4) Alcohol abuse: Code(s): F10.10 - Alcohol abuse, uncomplicated Status: Acute Assessment and Plan: patient has a history of alcohol abuse - continue CIWA protocol in p.r.n. Ativan - on thiamine and folic acid - patient still tremulous, if CIWA scores worsen will start Precedex (5) Metabolic acidosis: Code(s): E87.2 - Acidosis Status: Acute Assessment and Plan: metabolic acidosis is multifactorial significantly low bicarb levels likely secondary to uremia, GI bleed and bowel movement, volume loss - patient to get dialyzed today, likely improvement in acidosis with dialysis. Discussed with Nephrology, agrees with the plan (6) Acute hyponatremia: Code(s): E87.1 - Hypo-osmolality and hyponatremia Status: Acute Assessment and Plan: acute hyponatremia could be related to acute renal failure, alcohol abuse, free water polydipsia - patient on sodium bicarb infusion, will increase sodium levels gradually 0.5 mEq per hour - nephrology following the patient (7) Thrombocytopenia: Code(s): D69.6 - Thrombocytopenia, unspecified Status: Acute Assessment and Plan: thrombocytopenia with acute renal failure and altered mental status could be related TTP, no schistocytes were noted peripheral smear - hematology consulted - platelets could also be decreased due to alcoholism - LFTs within normal limits (8) Encephalopathy: Code(s): G93.40 - Encephalopathy, unspecified Status: Acute Assessment and Plan: encephalopathy likely multifactorial, could be a alcohol withdrawal, hyponatremia, uremia, anemia - treat underlying causes Additional Plan code status: Full code Critical care time spent: 33 minutes Due to a high probability of clinically significant, life threatening deterioration, the patient required my highest level of preparedness to intervene emergently and I personally spent this critical care time directly and personally managing the patient. This critical care time included obtaining a history; examining the patient; pulse oximetry; ordering and review of studies; arranging urgent treatment with development of a management plan; evaluation of patient's response to treatment; frequent reassessment; and discussions with other providers. It was exclusive of separately billable procedures and treating other patients and teaching time. Please s
[2019-12-19] MEDS: SODIUM BICARBONATE 8.4% 150 MEQ in DEXTROSE 5% 1,000 ML 950 ML 50 MEQ IV CONT (18:04)
[2019-12-19 19:19] LABS: Sodium 122 mmol/L (137-145)
[2019-12-20] VITALS (17 sets, daily range): BP systolic 96–132; BP diastolic 54–78; PULSE 63–81; RESP 12–24; TEMP 36.1–37.4; O2SAT 95–100
[2019-12-20 04:34] LABS: Mean Corpuscular HGB Conc 35.7 g/dl (32-36); Mean Corpuscular Hemoglobin 31.1 pg (26-34); Mean Corpuscular Volume 87.3 fl (80-100); Mean Platelet Volume 9.4 fl (7.4-10.4); Platelet Count Result 116 k/mm3 (150-375); Red Blood Count 2.12 M/mm3 (4.6-6.20); Red Cell Distribution Width 13.3 % (11.5-14.5)
[2019-12-20 04:34] LABS: Osmolality, Urine 295 mOsm/kg (50-1200)
[2019-12-20 04:47] LABS: Angiotensin Converting Enzyme 23 U/L (9-67)
[2019-12-20 04:59] LABS: Albumin Level 2.6 g/dL (3.5-5.1); Calcium 6.5 mg/dL (8.4-10.2); Carbon Dioxide 22 mmol/L (22-30); Chloride 86 mmol/L (98-107); Estimated CRCL calculation 6 ml/min; Estimated Glomerular Filt Rate 4; Glucose 129 mg/dL (75-110); Phosphorus 6.2 mg/dL (2.5-4.5); Potassium 3.8 mmol/L (3.4-5.0); Sodium 123 mmol/L (137-145)
[2019-12-20 05:53] LABS: Blood Urea Nitrogen 142 mg/dL (9-20)
[2019-12-20 06:07] LABS: Hemoglobin 6.6 g/dL (14.0-18.0)
[2019-12-20 06:08] LABS: Hematocrit 18.5 % (42.0-52.0)
[2019-12-20] MEDS: PANTOPRAZOLE SODIUM IV 40 MG VIAL IV PUSH ×2 (08:05→21:07)
[2019-12-20] MEDS: THIAMINE HCL 200 MG/2 ML VIAL 100 MG IV PUSH (08:05)
--- NOTE | 2019-12-20 08:18 | WPDANESPN ---
Anes - Prog Note Post-Op Date/Time: 12/20/19 08:18 Cardiovascular status: normal Respiratory status: normal Airway patency: baseline Mental status: baseline Post-Op hydration status: normal Vital Signs: Last Vital Signs Temp 37.1 C 12/20/19 08:07 Pulse 77 12/20/19 08:07 Resp 15 12/20/19 08:07 BP 132/78 12/20/19 08:07 Pulse Ox 97 12/20/19 08:07 Pain Score (VAS): 0/10. Patient resting in bed at time of assessment, appears comfortable. I/O: Intake & Output 12/19/19 12/20/19 12/20/19 23:59 07:59 15:59 Intake Total 1100 836 0 Output Total 700 750 Balance 400 86 0 Laboratory Tests 12/20/19 04:16 12/20/19 04:16 12/17/19 12/17/19 12/17/19 18:17 23:18 23:19 WBC RBC Hgb Hct MCV MCH MCHC RDW Plt Count MPV PT INR Sodium Potassium Chloride Carbon Dioxide BUN Creatinine Estim Creat Clear Calc Estimated GFR Glucose POC Capillary Glucose Serum Osmolality 320 H Lactic Acid Calcium Phosphorus Magnesium Ammonia Albumin Angiotensin Convert Enz 23 Urine Osmolality ANCA Screen Blood Type A Positive Antibody Screen Negative Crossmatch See Detail 12/18/19 12/19/19 12/19/19 00:10 08:02 08:02 WBC RBC Hgb Hct MCV MCH MCHC RDW Plt Count MPV PT INR Sodium 119 L* Potassium 4.5 Chloride 79 L Carbon Dioxide 14 L BUN 212 H Creatinine 17.50 H Estim Creat Clear Calc 5 Estimated GFR 3 L Glucose 187 H POC Capillary Glucose Serum Osmolality Lactic Acid 0.6 L Calcium 6.7 L Phosphorus 7.4 H Magnesium 2.3 Ammonia Albumin Angiotensin Convert Enz Urine Osmolality 295 ANCA Screen Blood Type Antibody Screen Crossmatch 12/19/19 12/19/19 12/19/19 08:02 08:02 10:39 WBC RBC Hgb 7.4 L Hct 20.7 L* MCV MCH MCHC RDW Plt Count MPV PT 13.7 INR 1.1 Sodium Potassium Chloride Carbon Dioxide BUN Creatinine Estim Creat Clear Calc Estimated GFR Glucose POC Capillary Glucose Serum Osmolality Lactic Acid Calcium Phosphorus Magnesium Ammonia < 9 L Albumin Angiotensin Convert Enz Urine Osmolality ANCA Screen Blood Type Antibody Screen Crossmatch 12/19/19 12/19/19 12/19/19 10:39 11:03 19:08 WBC RBC Hgb Hct MCV MCH MCHC RDW Plt Count MPV PT INR Sodium 122 L Potassium Chloride Carbon Dioxide BUN Creatinine Estim Creat Clear Calc Estimated GFR Glucose POC Capillary Glucose 191 H Serum Osmolality Lactic Acid Calcium Phosphorus Magnesium Ammonia Albumin Angiotensin Convert Enz Urine Osmolality ANCA Screen Pending Blood Type Antibody Screen Crossmatch 12/20/19 12/20/19 04:16 04:16 WBC 4.0 L RBC 2.12 L Hgb 6.6 L* Hct 18.5 L* MCV 87.3 MCH 31.1 MCHC 35.7 RDW 13.3 Plt Count 116 L MPV 9.4 PT INR Sodium 123 L Potassium 3.8 Chloride 86 L Carbon Dioxide 22 BUN 142 H D Creatinine 12.70 H Estim Creat Clear Calc 6 Estimated GFR 4 L Glucose 129 H POC Capillary Glucose Serum Osmolality Lactic Acid Calcium 6.5 L Phosphorus 6.2 H Magnesium 2.0 Ammonia Albumin 2.6 L Angiotensin Convert Enz Urine Osmolality ANCA Screen Blood Type Antibody Screen Crossmatch Post-procedural complaints: none Patient Feedback: Patient satisfied with anesthetic care.
--- NOTE | 2019-12-20 08:18 | WPDGIPROGNO ---
Progress Note: A&P Additional Plan Patient alert this morning. Reports no appetite.. No additional bleeding reported. Physical exam reveals him to be alert. Somewhat slow in mentation. Lungs are clear. Heart without murmur. Abdomen is soft and nontender. Labs reveal hemoglobin 6.6, heme hematocrit 18.5, platelets 116 K. Sodium 123, carbon dioxide 22, BUN 142, creatinine 12.7. Impression 1. Azotemia. Acute renal failure of uncertain etiology. Dr. Kern following. Dialysis to continue per his directions. 2. GI bleeding. Appears to have been from erosive esophagitis, he also has a duodenal ulcer. Plan is to treat with proton pump inhibitor. I suspect these are likely related to his severe azotemia. Advance diet as tolerated. 3. Anemia. Likely multifactorial. GI bleeding certainly contributes to a certain degree. Continue to monitor hemoglobin and transfuse as required. Subjective Date/time seen: 12/20/19 08:18 Objective Data Vital Signs Vital Signs: Vital Signs - 24 hr 12/19/19 10:00 12/19/19 10:05 12/19/19 12:00 Temperature 36.6 C Pulse Rate 76 79 67 Pulse Rate [Monitor] 68 Respiratory Rate 22 H 14 Blood Pressure 122/67 103/64 Pulse Oximetry 94 94 12/19/19 13:19 12/19/19 14:38 12/19/19 14:50 Temperature 36.4 C Pulse Rate 66 67 76 Pulse Rate [Monitor] Respiratory Rate 13 18 Blood Pressure 105/65 120/60 113/60 Pulse Oximetry 92 99 12/19/19 15:00 12/19/19 15:15 12/19/19 15:19 Temperature 36.6 C Pulse Rate 75 65 73 Pulse Rate [Monitor] Respiratory Rate 21 H Blood Pressure 106/54 L 115/53 L 112/59 L Pulse Oximetry 99 12/19/19 15:30 12/19/19 15:45 12/19/19 16:00 Temperature Pulse Rate 72 66 65 Pulse Rate [Monitor] 78 Respiratory Rate Blood Pressure 88/50 L 119/59 L 112/62 Pulse Oximetry 12/19/19 16:15 12/19/19 16:30 12/19/19 16:45 Temperature Pulse Rate 67 72 75 Pulse Rate [Monitor] Respiratory Rate Blood Pressure 105/60 112/59 L 111/60 Pulse Oximetry 12/19/19 17:00 12/19/19 17:20 12/19/19 18:00 Temperature 36.4 C Pulse Rate 78 75 75 Pulse Rate [Monitor] Respiratory Rate 21 H 20 Blood Pressure 106/59 L 112/62 Pulse Oximetry 98 12/19/19 20:00 12/19/19 22:00 12/19/19 23:55 Temperature 36.7 C 36.6 C Pulse Rate 75 83 79 Pulse Rate [Monitor] Respiratory Rate 20 20 Blood Pressure 114/62 114/61 Pulse Oximetry 96 98 12/20/19 00:00 12/20/19 02:00 12/20/19 03:52 Temperature 37.4 C Pulse Rate 80 69 73 Pulse Rate [Monitor] Respiratory Rate 24 H Blood Pressure 100/54 L Pulse Oximetry 96 12/20/19 04:00 12/20/19 05:52 12/20/19 08:07 Temperature 37.1 C Pulse Rate 72 69 77 Pulse Rate [Monitor] Respiratory Rate 15 Blood Pressure 132/78 Pulse Oximetry 97 Intake/Output Intake/Output: Intake & Output 12/17/19 12/18/19 12/19/19 12/20/19 23:59 23:59 23:59 23:59 Intake Total 1000 1805.2 2450 836 Output Total 979 614 3770 750 Balance 880 1105.2 1100 86 Meds/Results Medications: Active Medications Generic Name Dose Route Start Last Admin Trade Name Freq PRN Reason Stop Dose Admin Folic Acid 1 mg 12/19/19 09:00 12/19/19 11:10 Folic Acid Inj IV PUSH 1 mg QAM DONNA Administration Sodium Bicarbonate 150 meq/ 1,100 mls @ 50 mls/hr 12/18/19 18:00 12/20/19 05:15 Dextrose IV CONT 50 mls/hr .Q22H DONNA Infusion Sodium Chloride 250 mls @ 30 mls/hr 12/20/19 06:11 Normal Saline Iv IV CONT 12/20/19 14:30 .Q8H20M STA Lorazepam 1 mg 12/17/19 22:57 12/18/19 00:30 Ativan Inj IV PUSH 1 mg Q4H PRN Administration Withdrawal Naloxone HCl 0.1 mg 12/18/19 13:03 Narcan IV PUSH Q2M PRN Opiate Reversal Ondansetron HCl 4 mg 12/17/19 21:05 Zofran Inj IV PUSH Q4H PRN Nausea Pantoprazole Sodium 40 mg 12/19/19 10:35 12/20/19 08:05 Protonix Iv IV PUSH 40 mg Q12HR DONNA Administration Thiamine HC
[2019-12-20] MEDS: FOLIC ACID 1 MG/0.2 ML INJ IV PUSH (09:27)
--- NOTE | 2019-12-20 10:30 | PM.PNNEP ---
Progress Note: A&P Assessment and Plan (1) Acute kidney injury: Code(s): N17.9 - Acute kidney failure, unspecified Status: Acute Assessment and Plan: The patient has renal failure. Ultrasound shows normal size kidneys with no echogenicity. Renal scan shows uptake and some excretion but decreased throughout. 2+ blood 1+ glucose and 1+ protein. There are 3-5 red cells per high-power field. Urine electrolytes are non pre renal C3 is low barely and C4 is normal. Other serology is pending. The immunofixation tests are pending. Hepatitis B surface antibody is indeterminate. Angiotensin-converting enzymes is pending Anca is pending CPK is barely elevated. LDH is mildly high at 631 Platelet count is up to 116 Tox screen was negative. Etiology is still not clear. Considerations: 1. Obstruction is not an issue. 2. Vascular disease: Renal scan shows blood flow to both kidneys. TTP is possible because of his low platelet count. No schistocytes seen on peripheral smear by Dr. Mcadams. Dr. Clinton is on the case. ADAMTS 3 is pending 3. ATN is possible but I do not know what the inciting event would of been. Perhaps this is the tail end of rhabdomyolysis when he fell the other day. 4. He does not look pre renal to me. 5. Chronic disease such as hypertension or diabetes. We will try to get old records from his primary care. These are pending. 6. GN. C3 is slightly low. he has blood and protein in the urine. Repeat the urinalysis. See with the serology shows. Repeat the C3. Consider biopsy next week. I hesitate to use steroids in this situation because of his multiple morbidities. 7. He does have an alcohol history. Endoscopy did not show varices, it showed esophagitis and a duodenal ulcer. He says he drinks 1-3 bourbons per day. He has never had a problem with alcohol. He has never taken any alcohol substitutes says, specifically methanol or ethylene glycol. There are no signs of delirium tremens. I do not think alcohol is really an issue here. 8. Infiltrative diseases. Angiotensin converting enzyme is pending but his chest x-ray does not look like sarcoid. He is a little old for this. Myeloma is always a possibility as well especially with the low platelet count and hemoglobin. Dr. Clinton to see today. Immunofixation is pending. At this point we are going to continue dialysis. He will get 2 more treatments tomorrow and Saturday. And we can do a kidney biopsy and find out what is going on in the kidneys. Long discussion with the patient and . (2) Gastrointestinal bleed: Qualifiers: GI bleed type/associated pathology: unspecified gastrointestinal hemorrhage type Qualified Code(s): K92.2 - Gastrointestinal hemorrhage, unspecified Code(s): K92.2 - Gastrointestinal hemorrhage, unspecified Status: Acute Assessment and Plan: The patient has guaiac-positive stools. He is anemic. He has esophagitis and duodenal ulcer. (3) Acute hyponatremia: Code(s): E87.1 - Hypo-osmolality and hyponatremia Status: Acute Assessment and Plan: The patient has a very low sodium. This has corrected slowly. It is now up to 122. Will continue dialysis on a low sodium bath to slowly correct this value. (4) HTN (hypertension): Qualifiers: Hypertension type: essential hypertension Qualified Code(s): I10 - Essential (primary) hypertension Code(s): I10 - Essential (primary) hypertension Status: Acute Assessment and Plan: Blood pressure is well controlled. We will hold blood pressure medications for now. (5) Neuropathy: Code(s): G62.9 - Polyneuropathy, unspecified Status: Acute Assessment and Plan: Chronic Subjective Date/time seen: 12/20/19 10:30 Interval history: Patient is in IMU now. He is getting more blood. He has no chest pain or shortness of breath. He has not had any more bowel movement
[2019-12-20 10:41] LABS: Complement Total CH50 60 U/mL (31-60)
--- NOTE | 2019-12-20 11:05 | PC.NURSE ---
Spoke to patients who [facility] he last saw MD Arturo Livingston at [facility] in September. [facility] patient was told his cholesterol and blood sugar are high and his medications were increased. [facility] patient has been complaining of back pain and hand pain but was otherwise acting normal up until last week when she noticed him to be depressed . Attempted to contact Dr Livingston at [phone], no answer at this time.
[2019-12-20] MEDS: LORAZEPAM INJ 2 MG/ML VIAL 1 MG IV PUSH ×2 (11:34→16:01)
--- NOTE | 2019-12-20 11:46 | PM.IMPN ---
Progress Note: A&P Assessment and Plan (1) Gastrointestinal bleed: Qualifiers: GI bleed type/associated pathology: unspecified gastrointestinal hemorrhage type Qualified Code(s): K92.2 - Gastrointestinal hemorrhage, unspecified Code(s): K92.2 - Gastrointestinal hemorrhage, unspecified Status: Acute Assessment and Plan: GI consulted and appreciate input. Patient with large melanotic stool on 12/18/2019 with subsequent further decrease in hemoglobin. Patient now S/P EGD by Dr. Nelson on 12/19/2019 with distal esophagitis and duodenal ulcers seen. Advanced to renal dialysis diet. Continue IV Protonix. Continue to monitor hemoglobin and hematocrit. Transfuse as needed. Telemetry reviewed on 12/20/2019 with sinus rhythm. (2) Anemia: Qualifiers: Anemia type: other cause Other causes of anemia: acute posthemorrhagic Qualified Code(s): D62 - Acute posthemorrhagic anemia Code(s): D64.9 - Anemia, unspecified Status: Acute Assessment and Plan: Result of GI bleed as noted but may also have component of renal disease. Transfused total of 3 units PRBC on 12/18/2019. Hemoglobin decreased again to 6.6 this morning and transfused 1 unit PRBC. Follow-up hemoglobin 7.2. Will continue to monitor and transfuse as needed. (3) Acute kidney injury: Code(s): N17.9 - Acute kidney failure, unspecified Status: Acute Assessment and Plan: Nephrology consulted and appreciate input. Discussed with Dr. Kern. Etiology not exactly clear at this point. Renal ultrasound with normal kidneys. Renal scan with symmetric kidney function and delayed bilateral renal clearance left greater than right consistent with medical history of acute renal insufficiency. Additional testing in progress. Laen catheter placed on 12/18/2019 with hemodialysis done on 12/19/2019. Plan for hemodialysis again tomorrow, 12/21/2019, and 12/22/2019. Plan for renal biopsy on 12/23/2019. Will continue to monitor. Creatinine slightly better at 12.70 today after hemodialysis yesterday. (4) Duodenal ulcer: Code(s): K26.9 - Duodenal ulcer, unspecified as acute or chronic, without hemorrhage or perforation Status: Acute Assessment and Plan: Also as noted on EGD. Continue IV Protonix. (5) Esophagitis: Code(s): K20.9 - Esophagitis, unspecified Status: Acute Assessment and Plan: As noted on EGD. Continue IV Protonix. (6) Acute hyponatremia: Code(s): E87.1 - Hypo-osmolality and hyponatremia Status: Acute Assessment and Plan: Sodium slowly to continues to increase and now up to 123. Remains on IV sodium bicarb IV. Continue to follow. Nephrology following as noted above. (7) Thrombocytopenia: Code(s): D69.6 - Thrombocytopenia, unspecified Status: Acute Assessment and Plan: Likely secondary to chronic alcoholism. Platelets 116,000 today without much change. Will continue to monitor. (8) HTN (hypertension): Qualifiers: Hypertension type: essential hypertension Qualified Code(s): I10 - Essential (primary) hypertension Code(s): I10 - Essential (primary) hypertension Status: Acute Assessment and Plan: Blood pressure reviewed on 12/20/2019 and low normal but stable without medication. Will continue to monitor. (9) Metabolic acidosis: Code(s): E87.2 - Acidosis Status: Acute Assessment and Plan: Secondary to acute renal failure. Now improved. Continue IV bicarb and monitor. (10) Alcohol abuse: Code(s): F10.10 - Alcohol abuse, uncomplicated Status: Acute Assessment and Plan: [facility] protocol. No sign of withdrawal this time. IV lorazepam available as needed. Continue IV folic acid and thiamine. Will monitor. (11) HLD (hyperlipidemia): Qualifiers: Hyperlipidemia type: unspecified Qualified Code(s): E78.5 - Hyperlipidemia, unspeci
[2019-12-20 13:00] LABS: Basophils Percent Auto 0.6 % (0.2-1.2); Eosinophils Absolute Auto 0.1 K/mm3 (0-0.3); Eosinophils Percent Auto 1.3 % (0-4.4); Hemoglobin 7.2 g/dL (14.0-18.0); Immature Granulocyte Absolute 0.02 K/mm3 (0.00-0.031); Immature Granulocyte Percent A 0.4 % (0-0.5); Lymphocytes Absolute Auto 0.25 K/mm3 (0.9-3.2); Lymphocytes Percent Auto 4.7 % (18.3-44.2); Mean Corpuscular Hemoglobin 30.8 pg (26-34); Mean Corpuscular Volume 85.5 fl (80-100); Mean Platelet Volume 9.3 fl (7.4-10.4); Monocytes Absolute Auto 0.4 K/mm3 (0.1-0.6); Monocytes Percent Auto 6.8 % (2.6-8.5); Neutrophils Absolute Auto 4.6 K/mm3 (1.3-6.7); Neutrophils Percent Auto 86.2 % (45.5-73.1); Platelet Count Result 116 k/mm3 (150-375); Red Blood Count 2.34 M/mm3 (4.6-6.20); Red Cell Distribution Width 13.2 % (11.5-14.5); White Blood Count 5.3 K/mm3 (4.5-10.0)
[2019-12-20] MEDS: SODIUM BICARBONATE 8.4% 150 MEQ in DEXTROSE 5% 1,000 ML 950 ML 50 MEQ IV CONT (16:02)
[2019-12-20 20:33] LABS: Hepatitis B Core Ab Total Nonreactive (Nonreactive)
[2019-12-20 20:33] LABS: Hepatitis Be Antibody Nonreactive
[2019-12-20 21:15] LABS: Kappa\\Lambda Light Chains 2.19 (0.26-1.65); Lambda Light Chain 47.1 mg/L (5.7-26.3)
[2019-12-21] VITALS (29 sets, daily range): BP systolic 108–150; BP diastolic 48–69; PULSE 67–83; RESP 14–20; TEMP 36.6–38.4; O2SAT 74–99
[2019-12-21 04:09] LABS: Haptoglobin 201 mg/dL (43-212)
[2019-12-21 05:07] LABS: Basophils Percent Auto 0.2 % (0.2-1.2); Eosinophils Absolute Auto 0.1 K/mm3 (0-0.3); Eosinophils Percent Auto 0.8 % (0-4.4); Hemoglobin 7.5 g/dL (14.0-18.0); Immature Granulocyte Absolute 0.02 K/mm3 (0.00-0.031); Immature Granulocyte Percent A 0.3 % (0-0.5); Lymphocytes Absolute Auto 0.26 K/mm3 (0.9-3.2); Mean Corpuscular HGB Conc 36.1 g/dl (32-36); Mean Corpuscular Hemoglobin 30.9 pg (26-34); Mean Corpuscular Volume 85.6 fl (80-100); Mean Platelet Volume 9.4 fl (7.4-10.4); Monocytes Absolute Auto 0.3 K/mm3 (0.1-0.6); Monocytes Percent Auto 3.8 % (2.6-8.5); Neutrophils Percent Auto 90.9 % (45.5-73.1); Platelet Count Result 153 k/mm3 (150-375); Red Blood Count 2.43 M/mm3 (4.6-6.20); Red Cell Distribution Width 13.2 % (11.5-14.5); White Blood Count 6.6 K/mm3 (4.5-10.0)
[2019-12-21 05:42] LABS: Albumin Level 2.8 g/dL (3.5-5.1); Calcium 6.4 mg/dL (8.4-10.2); Carbon Dioxide 28 mmol/L (22-30); Chloride 82 mmol/L (98-107); Estimated CRCL calculation 6 ml/min; Estimated Glomerular Filt Rate 4; Glucose 110 mg/dL (75-110); Magnesium 1.7 mg/dL (1.6-2.3); Phosphorus 5.9 mg/dL (2.5-4.5); Potassium 3.3 mmol/L (3.4-5.0); Sodium 124 mmol/L (137-145)
[2019-12-21 05:44] LABS: Blood Urea Nitrogen 137 mg/dL (9-20)
[2019-12-21 06:06] LABS: Hematocrit 20.8 % (42.0-52.0)
--- NOTE | 2019-12-21 06:11 | CONS_ITS ---
DATE OF CONSULTATION: 12/18/2019 REASON FOR CONSULTATION: Pancytopenia. HISTORY OF PRESENTING ILLNESS: This is a pleasant 64-year-old male, who has been in good health except history of hypertension and hyperlipidemia, came into the hospital with black tarry stool, complained for last 7 days duration. He denies any fevers and chills. He denies any nausea, vomiting, and abdominal pain. He denies any recent traveling history. The patient is slightly confused. According to the chart review, the patient suffered a fall about a week ago. The patient also has a history of drinking almost every day. On admission, the patient's creatinine was found to be 17.8 with sodium of 114. Hemoglobin was 8.5. Nephrology Service was consulted. Platelet was also found to be low at 117 with moderately elevated LDH. REVIEW OF SYSTEMS: 12-point review of system was reviewed and as per HPI, otherwise negative. PAST MEDICAL HISTORY: Hypertension, hyperlipidemia, and neuropathy. PAST SURGICAL HISTORY: None. HOME MEDICATIONS: Reviewed. ALLERGIES: REVIEWED. FAMILY HISTORY: Positive for coronary artery disease. SOCIAL HISTORY: The patient drinks almost on daily basis. Smokes 1/2 pack per day for 30 years duration. He is . BODY AFTER ALLERGIES: PHYSICAL EXAMINATION: GENERAL: This patient is slightly confused. VITAL SIGNS: Per nursing note. HEENT: Normocephalic, atraumatic. Clear oropharynx. LUNGS: Clear to auscultation bilaterally. CARDIOVASCULAR: Regular rate and rhythm. No murmurs. ABDOMEN: Soft, nontender, nondistended. Bowel sounds are positive. No hepatosplenomegaly. EXTREMITIES: No edema. NEURO: Slightly confused. LABORATORY DATA: WBC 3.9, hemoglobin 6.2, MCV 87, platelet 117, neutrophils 73%, lymphocytes 12%, monocytes 11%. Sodium 117, creatinine 18.3, calcium 7.2, LDH 637, C3-84. ASSESSMENT AND PLAN: Pancytopenia with acute renal insufficiency. I have reviewed rest of the labs that showed mildly elevated LDH. I have discussed this case with Dr. Asaf Kern as well. Differential diagnosis is broad and can include thrombotic microangiopathy but peripheral smear showed no evidence of schistocyte and LDH is only mildly elevated. Other possibility includes paroxysmal nocturnal hemoglobinuria with acute renal insufficiency and pancytopenia. I will order the flow cytometry for [facility]. I will also order the workup for hemolytic anemia that would include direct Donald test, haptoglobin and reticulocyte count. I will check iron studies and vitamin B12 level. Abdominal ultrasound has been ordered, showed no evidence of splenomegaly and liver disease. I will also check a MTs 13 level inhibitor. I will also order stool testing including stool culture. The patient is going to start hemodialysis. He will receive blood transfusion on as needed basis. So far the evidence of hemolysis is not clear and will hold on starting steroids and plasmapheresis. I also do not see need for bone marrow biopsy at this time. I have also discussed this case with Dr. Kern and Dr. Tito Mcadams. SUJATHA KERR M.D. PROCESS OWNER PROCESS OWNER D I MT: Patrick
--- NOTE | 2019-12-21 06:11 | OP_ITS ---
DATE OF PROCEDURE: 12/19/2019 PROCEDURE: Esophagogastroduodenoscopy with biopsy. PREOPERATIVE DIAGNOSIS: Upper gastrointestinal bleeding. POSTOPERATIVE DIAGNOSIS: Duodenal ulcer and distal esophagitis. DESCRIPTION OF PROCEDURE: Informed consent for the EGD is obtained from the patient. The risks, benefits, alternatives, indications are discussed and agreed to prior to the procedure. The risks include, but are not limited to, adverse reaction to medications including allergies, the risk of bleeding, and possible need for transfusion, the risk of perforation and possible need for surgery, and the risk for missed pathology. The patient voiced clear understanding, agreed to proceed. The patient is sedated with anesthesia assistance. Following findings, the [employer] video endoscope passed through the esophagus, which appears normal in the upper area. The distal 7-8 cm of the esophagus reveals erosions and friability consistent with distal esophagitis. No varices are identified. GE junction is located at 40 cm. Stomach is seen in its entirety including U-turn and is normal. Duodenum reveals a normal bulb, however, at the sweep, the 2nd portion of the duodenum, 1 cm ulcer with a clean base is identified. IMPRESSION: 1. Duodenal ulcer may have contributed to GI bleeding. Agree with proton pump inhibitors. Avoiding nonsteroidal anti-inflammatory agents. 2. Distal esophagitis may have been the source of recent GI blood loss. PLAN: Plan is to continue proton pump inhibitors. Protonix 40 mg twice a day. Continue to monitor hemoglobin, transfuse accordingly. We will discontinue octreotide drip. Suspect some of this may be related as a stress response to his azotemia. Diet will be advanced slowly initially with liquid diet as tolerated today. Dorothy I MT: Patrick
--- NOTE | 2019-12-21 07:13 | WPDGIPROGNO ---
Progress Note: A&P Additional Plan Patient alert and comfortable this morning. Tolerated diet. No additional bleeding reported. Physical exam reveals patient to be alert. Vital signs stable. Lungs are clear. Heart without murmur. Abdomen bowel sounds are present soft nontender with no organomegaly. Labs reveal WBC 6.6, hemoglobin 7.5, hematocrit 20.8, MCV 85. Sodium 124, BUN 137, creatinine 13. Impression 1. Acute renal failure. Uncertain if there could be a chronic component. Nephrology following patient dialysis to continue. 2. Erosive esophagitis. Likely etiology for recent GI bleeding. Patient now on proton pump inhibitor. 3. Duodenal ulcer. Noted at time of endoscopy could have contributed to bleeding as well. Now being treated with proton pump inhibitor. [place] to be a stress ulcer likely related to azotemia. Plan to continue to monitor hemoglobin. Continue proton pump inhibitor. Diet as tolerated. Renal service investigation in progress. Subjective Date/time seen: 12/21/19 07:13 Objective Data Vital Signs Vital Signs: Vital Signs - 24 hr 12/20/19 08:00 12/20/19 08:07 12/20/19 08:26 Temperature 37.1 C 36.8 C Pulse Rate 71 77 81 Respiratory Rate 15 16 Blood Pressure 132/78 125/70 Pulse Oximetry 97 98 12/20/19 08:56 12/20/19 09:26 12/20/19 10:00 Temperature 36.3 C L 36.3 C L Pulse Rate 74 70 74 Respiratory Rate 12 14 Blood Pressure 115/58 L 122/68 Pulse Oximetry 97 99 12/20/19 10:26 12/20/19 12:00 12/20/19 14:00 Temperature 36.3 C L 36.3 C L Pulse Rate 69 67 64 Respiratory Rate 14 18 Blood Pressure 112/60 108/54 L Pulse Oximetry 100 100 12/20/19 16:00 12/20/19 18:00 12/20/19 20:00 Temperature 36.1 C L 36.6 C Pulse Rate 63 77 67 Respiratory Rate 12 20 Blood Pressure 96/59 L 125/76 Pulse Oximetry 100 95 12/21/19 00:00 12/21/19 02:00 12/21/19 04:00 Temperature 36.6 C 36.6 C Pulse Rate 67 78 81 Respiratory Rate 20 20 Blood Pressure 130/59 L 131/55 L Pulse Oximetry 93 96 12/21/19 05:59 Temperature Pulse Rate 69 Respiratory Rate Blood Pressure Pulse Oximetry Intake/Output Intake/Output: Intake & Output 12/18/19 12/19/19 12/20/19 12/21/19 23:59 23:59 23:59 23:59 Intake Total 1805.2 2450 2460 200 Output Total 700 1350 1600 1500 Balance 1105.2 1100 860 -1300 Meds/Results Medications: Active Medications Generic Name Dose Route Start Last Admin Trade Name Freq PRN Reason Stop Dose Admin Folic Acid 1 mg 12/19/19 09:00 12/20/19 09:27 Folic Acid Inj IV PUSH 1 mg QAM DONNA Administration Sodium Bicarbonate 150 meq/ 1,100 mls @ 50 mls/hr 12/18/19 18:00 12/20/19 16:02 Dextrose IV CONT 50 mls/hr .Q22H DONNA Administration Lorazepam 1 mg 12/17/19 22:57 12/20/19 16:01 Ativan Inj IV PUSH 1 mg Q4H PRN Administration Withdrawal Naloxone HCl 0.1 mg 12/18/19 13:03 Narcan IV PUSH Q2M PRN Opiate Reversal Ondansetron HCl 4 mg 12/17/19 21:05 Zofran Inj IV PUSH Q4H PRN Nausea Pantoprazole Sodium 40 mg 12/19/19 10:35 12/20/19 21:07 Protonix Iv IV PUSH 40 mg Q12HR DONNA Administration Thiamine HCl 100 mg 12/18/19 09:00 12/20/19 08:05 Thiamine Hcl Inj IV PUSH 100 mg DAILY DONNA Administration Radiology Results: ITS Impressions Head CT 12/17/19 19:53 IMPRESSION: 1. No acute intracranial abnormality. 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 3: Chronic age-related findings. Cervical Spine CT 12/17/19 19:57 IMPRESSION: 1. No acute fracture. 2: Moderate-severe cervical spondylosis. Miscellaneous CT Procedure 12/17/19 20:01 IMPRESSION: 1. No acute abdominal abnormality. ADDENDUM: 12/17/192033 Impression: 1: No acute abnormality of the lumbar spine. Central Venous Line 12/18/19 12:07 IMPRESSION: 1. Central venous catheter tip overlying superior cavoatrial junction. Abdomen Ultrasou
--- NOTE | 2019-12-21 08:48 | PM.IMPN ---
Progress Note: A&P Assessment and Plan (1) Acute kidney injury: Code(s): N17.9 - Acute kidney failure, unspecified Status: Acute Assessment and Plan: Nephrology consulted and appreciate input. Discussed with Dr. Kern. Etiology not exactly clear at this point. Renal ultrasound with normal kidneys. Renal scan with symmetric kidney function and delayed bilateral renal clearance left greater than right consistent with medical history of acute renal insufficiency. Additional testing in progress. Lane catheter placed on 12/18/2019 with hemodialysis done on 12/19/2019. Plan for hemodialysis again today, 12/21/2019, and tomorrow, 12/22/2019. Plan for renal biopsy on 12/23/2019. Will continue to monitor. Creatinine remains elevated at 13.20 today. Will continue to follow. Telemetry reviewed on 12/21/2019 with sinus rhythm. If no issues with hemodialysis, will transfer to medical floor later today. (2) Hypokalemia: Code(s): E87.6 - Hypokalemia Status: Acute Assessment and Plan: Potassium 3.3 today. Will not replace as will have hemodialysis today. (3) Gastrointestinal bleed: Qualifiers: GI bleed type/associated pathology: unspecified gastrointestinal hemorrhage type Qualified Code(s): K92.2 - Gastrointestinal hemorrhage, unspecified Code(s): K92.2 - Gastrointestinal hemorrhage, unspecified Status: Acute Assessment and Plan: GI consulted and appreciate input. Patient with large melanotic stool on 12/18/2019 with subsequent further decrease in hemoglobin. Patient now S/P EGD by Dr. Nelson on 12/19/2019 with distal esophagitis and duodenal ulcers seen. Now on renal dialysis diet. Continue IV Protonix. Continue to monitor hemoglobin and hematocrit. Transfuse as needed. (4) Anemia: Qualifiers: Anemia type: other cause Other causes of anemia: acute posthemorrhagic Qualified Code(s): D62 - Acute posthemorrhagic anemia Code(s): D64.9 - Anemia, unspecified Status: Acute Assessment and Plan: Result of GI bleed as noted but may also have component of renal disease. Transfused total of 3 units PRBC on 12/18/2019. Hemoglobin decreased again to 6.6 on 12/20/2019 transfused 1 unit PRBC. Hgb 7.5 today. Will continue to monitor and transfuse as needed. (5) Duodenal ulcer: Code(s): K26.9 - Duodenal ulcer, unspecified as acute or chronic, without hemorrhage or perforation Status: Acute Assessment and Plan: Also as noted on EGD. Continue IV Protonix. (6) Esophagitis: Code(s): K20.9 - Esophagitis, unspecified Status: Acute Assessment and Plan: As noted on EGD. Continue IV Protonix. (7) Acute hyponatremia: Code(s): E87.1 - Hypo-osmolality and hyponatremia Status: Acute Assessment and Plan: Sodium now up to 124 today. Remains on IV sodium bicarb. Continue to follow. Nephrology following as noted above. (8) Thrombocytopenia: Code(s): D69.6 - Thrombocytopenia, unspecified Status: Acute Assessment and Plan: Likely secondary to chronic alcoholism. Platelets up to 153,000 today. Continue to monitor. (9) HTN (hypertension): Qualifiers: Hypertension type: essential hypertension Qualified Code(s): I10 - Essential (primary) hypertension Code(s): I10 - Essential (primary) hypertension Status: Acute Assessment and Plan: Blood pressure reviewed on 12/21/2019 with variability noted but acceptable. Not on medication. Will continue to monitor. (10) Metabolic acidosis: Code(s): E87.2 - Acidosis Status: Resolved Assessment and Plan: Secondary to acute renal failure. Resolved. Remains on IV bicarb. (11) Alcohol abuse: Code(s): F10.10 - Alcohol abuse, uncomplicated Status: Acute Assessment and Plan: CIWA-AK protocol. No sign of withdrawal this time. IV lorazepam available as needed.
[2019-12-21] MEDS: PANTOPRAZOLE SODIUM IV 40 MG VIAL IV PUSH ×2 (09:19→21:33)
[2019-12-21] MEDS: LORAZEPAM INJ 2 MG/ML VIAL 1 MG IV PUSH (09:24)
[2019-12-21] MEDS: THIAMINE HCL 100 MG TABLET PO (09:58)
[2019-12-21] MEDS: FOLIC ACID 1 MG TABLET PO (09:58)
[2019-12-21] MEDS: SODIUM BICARBONATE 8.4% 150 MEQ in DEXTROSE 5% 1,000 ML 950 ML 50 MEQ IV CONT (12:53)
--- NOTE | 2019-12-21 13:40 | PC.NURSE ---
Patient left floor to attend Dialysis Treatment
[2019-12-21 13:45] LABS: ADAMTS-13 Activity 32 % Activity (68-163)
--- NOTE | 2019-12-21 14:08 | PCPTNOTE ---
Attempted PT evaluation. Patient currently in dialysis. Will try back tomorrow.
--- NOTE | 2019-12-21 14:08 | PCOTNOTE ---
OT evaluation attempted. Patient in dialysis this PM. Will attempt tomorrow.
--- NOTE | 2019-12-21 15:50 | PM.PNNEP ---
Progress Note: A&P Assessment and Plan (1) Acute kidney injury: Code(s): N17.9 - Acute kidney failure, unspecified Status: Acute Assessment and Plan: etiology not clear... evaluation to date demonstrates: - renal u/s normal size kidneys with no echogenicity - renal scan with uptake and some excretion but decreased throughout - UA with blood, glucose, and protein - lowish C3, normal C4, negative urine immunofixation, elevated kappa/lamda ratio; other serologies pending HOWEVER, continues to make good urine output at this time initiated on dialysis more so for clearance of uremic toxins plan HD today as well as tomorrow and plan renal biopsy of Saturday for a hopefully definitive diagnosis (2) Gastrointestinal bleed: Qualifiers: GI bleed type/associated pathology: unspecified gastrointestinal hemorrhage type Qualified Code(s): K92.2 - Gastrointestinal hemorrhage, unspecified Code(s): K92.2 - Gastrointestinal hemorrhage, unspecified Status: Acute Assessment and Plan: H/H stable at this time s/p EGD with findings of esophagitis and duodenal ulcer GI following (3) Acute hyponatremia: Code(s): E87.1 - Hypo-osmolality and hyponatremia Status: Acute Assessment and Plan: presumably due to renal failure and excessive free water intake prior to admission slow correction noted with dialysis follow trend of sodium (4) HTN (hypertension): Qualifiers: Hypertension type: essential hypertension Qualified Code(s): I10 - Essential (primary) hypertension Code(s): I10 - Essential (primary) hypertension Status: Acute Assessment and Plan: well controlled at this time follow trend of hemodynamics Will continue to follow -- discussed with Dr. Mejia. Subjective Date/time seen: 12/21/19 15:50 Chart/Interim reviewed since admission -- tolerating dialysis at the time of my visit (seen on HD at ~ 3:20PM); no acute issues or problems voiced aside from some fatigue; no events overnight or earlier this AM. Exam Narrative: Exam Narrative: General: WD/WN male in NAD Heart: normal S1 and S2; no rub Lungs: clear to auscultation Abdomen: soft, nontender, nondistended, positive bowel sounds Extremities: no cyanosis or clubbing; no edema Skin: warm and dry Objective Data Vital Signs Vital Signs: Vital Signs Temp Pulse Resp BP Pulse Ox 12/21/19 15:45 73 150/60 H 12/21/19 15:30 74 118/61 12/21/19 15:15 74 119/68 12/21/19 15:00 76 128/68 12/21/19 14:45 78 124/64 12/21/19 14:30 81 126/65 12/21/19 14:15 77 109/57 L 12/21/19 14:07 74 119/65 12/21/19 14:00 82 12/21/19 13:52 36.8 C 81 14 124/65 12/21/19 12:52 36.9 C 82 18 131/65 99 12/21/19 12:00 78 12/21/19 10:00 82 12/21/19 09:04 38.0 C H 78 16 125/63 93 12/21/19 08:00 70 12/21/19 05:59 69 12/21/19 04:00 36.6 C 81 20 131/55 L 96 12/21/19 02:00 78 12/21/19 00:00 36.6 C 67 20 130/59 L 93 12/20/19 20:00 36.6 C 67 20 125/76 95 12/20/19 18:00 77 12/20/19 16:00 36.1 C L 63 12 96/59 L 100 Intake/Output Intake/Output: Intake & Output 12/18/19 12/19/19 12/20/19 12/21/19 23:59 23:59 23:59 23:59 Intake Total 1805.2 2450 2460 1437 Output Total 700 1350 1600 2350 Balance 1105.2 1100 860 -913 Meds/Results Medications: Active Medications Generic Name Dose Route Start Last Admin Trade Name Freq PRN Reason Stop Dose Admin Folic Acid 1 mg 12/21/19 09:00 12/21/19 09:58 Folic Acid PO 1 mg DAILY DONNA Administration Sodium Bicarbonate 150 meq/ 1,100 mls @ 50 mls/hr 12/18/19 18:00 12/21/19 12:53 Dextrose IV CONT 50 mls/hr .Q22H DONNA Administration Lorazepam 1 mg 12/17/19 22:57 12/21/19 09:24 Ativan Inj IV PUSH 1 mg Q4H PRN Administration Withdrawal Naloxone HCl 0.1 mg 12/18/19 1
--- NOTE | 2019-12-21 16:09 | WPDONCPN ---
Progress Note: A/P - Additional Plan Normocytic anemia with thrombocytopenia. Workup for thrombotic microangiopathy glued in hemolytic anemia workup came back unremarkable. Direct Donald test negative. LDH mildly elevated. Total bilirubin normal. Haptoglobin normal. This profound anemia is multifactorial likely secondary to acute renal failure and GI blood loss. EGD finding showed erosive esophagitis and duodenal ulcer. Patient is on proton pump inhibitors. Hemoglobin has improved after blood transfusion. Iron studies were likely drawn after the blood transfusion and not accurate. Acute renal failure. Nephrology input noted. Creatinine slowly improving with dialysis. - Time Spent With Patient Total time spent is greater than 50% in coordination of care (as documented) at patient's floor/unit and/or counseling patient: 15 - 25 minutes Subjective Interval history: Normocytic anemia Thrombocytopenia Acute renal failure Review of Systems - Review of Systems Patient looks much more awake and alert. He looks comfortable. Denies any melena and hematochezia. Denies any other bleeding. No other new complaints. - Neurologic Reports system reviewed and no additional complaints, except as documented, Denies confusion, Denies headache(s) Exam Vital signs: Temp Pulse Resp BP Pulse Ox 36.8 C 81 14 123/48 L 99 12/21/19 13:52 12/21/19 16:00 12/21/19 13:52 12/21/19 16:00 12/21/19 12:52 Narrative: Lungs are clear to auscultation bilaterally Cardiovascular regular rate rhythm no murmurs Abdomen soft nontender nondistended Extremities no edema PN: Objective Data - Labs CBC & Chem 7: 12/21/19 04:23 12/21/19 04:23 Labs: Laboratory Results - last 24 hr 12/17/19 12/18/19 12/18/19 23:19 09:01 13:43 WBC RBC Hgb Hct MCV MCH MCHC RDW Plt Count MPV Immature Gran % (Auto) Neut % (Auto) Lymph % (Auto) [place] % (Auto) Eos % (Auto) Baso % (Auto) Lymph # (Auto) [place] # (Auto) Eos # (Auto) Baso # (Auto) Abs Immat Gran (auto) Absolute Neuts (auto) Absolute Nucleated RBC Nucleated RBC % Haptoglobin [id number] Activity [id number] Activity Intrp Sodium Potassium Chloride Carbon Dioxide BUN Creatinine Estim Creat Clear Calc Estimated GFR Glucose Calcium Phosphorus Magnesium Albumin [place]/Lambda Ratio 2.19 H Free [place] Light Chains 103.0 H Free Lambda Light Chain 47.1 H Hep B Core Total Ab Nonreactive Hepatitis Be Antibody Nonreactive 12/18/19 12/18/19 12/21/19 16:39 16:39 04:23 WBC 6.6 RBC 2.43 L Hgb 7.5 L Hct 20.8 L* MCV 85.6 MCH 30.9 MCHC 36.1 H RDW 13.2 Plt Count 153 MPV 9.4 Immature Gran % (Auto) 0.3 Neut % (Auto) 90.9 H Lymph % (Auto) 4.0 L [place] % (Auto) 3.8 Eos % (Auto) 0.8 Baso % (Auto) 0.2 Lymph # (Auto) 0.26 L [place] # (Auto) 0.3 Eos # (Auto) 0.1 Baso # (Auto) 0.0 Abs Immat Gran (auto) 0.02 Absolute Neuts (auto) 6.0 Absolute Nucleated RBC 0.0 Nucleated RBC % 0.0 Haptoglobin 201 [id number] Activity 32 L [id number] Activity Intrp Not indicated Sodium Potassium Chloride Carbon Dioxide BUN Creatinine Estim Creat Clear Calc Estimated GFR Glucose Calcium Phosphorus Magnesium Albumin [place]/Lambda Ratio Free [place] Light Chains Free Lambda Light Chain Hep B Core Total Ab Hepatitis Be Antibody 12/21/19 04:23 WBC RBC Hgb Hct MCV MCH MCHC RDW Plt Count MPV Immature Gran % (Auto) Neut % (Auto) Lymph % (Auto) [place] % (Auto) Eos % (Auto) Baso % (Auto) Lymph # (Auto) [place] # (Auto) Eos # (Auto) Baso # (Auto) Abs Immat Gran (auto) Absolute Neuts (auto) Absolute Nucleated RBC Nucleated RBC % Haptoglobin [id number] Activity [id number] Activity Intrp
--- NOTE | 2019-12-21 17:00 | PC.NURSE ---
Patient returned to floor from dialysis
[2019-12-21] MEDS: HEPARIN SODIUM 1,000 UNITS/ML VIAL 1000 UNITS IV PUSH (17:08)
[2019-12-21 20:02] LABS: ANCA Screen Negative (Negative)
[2019-12-22] VITALS (26 sets, daily range): BP systolic 106–145; BP diastolic 47–78; PULSE 68–91; RESP 16–20; TEMP 36.8–38.4; O2SAT 93–99
[2019-12-22 04:36] LABS: Hematocrit 22.4 % (42.0-52.0); Hemoglobin 7.9 g/dL (14.0-18.0); Mean Corpuscular HGB Conc 35.3 g/dl (32-36); Mean Corpuscular Hemoglobin 30.7 pg (26-34); Mean Corpuscular Volume 87.2 fl (80-100); Platelet Count Result 193 k/mm3 (150-375); Red Blood Count 2.57 M/mm3 (4.6-6.20); Red Cell Distribution Width 13.1 % (11.5-14.5); White Blood Count 6.6 K/mm3 (4.5-10.0)
[2019-12-22 05:17] LABS: Albumin Level 2.8 g/dL (3.5-5.1); Blood Urea Nitrogen 94 mg/dL (9-20); Calcium 6.7 mg/dL (8.4-10.2); Carbon Dioxide 35 mmol/L (22-30); Chloride 84 mmol/L (98-107); Estimated CRCL calculation 8 ml/min; Estimated Glomerular Filt Rate 5; Glucose 117 mg/dL (75-110); Magnesium 1.6 mg/dL (1.6-2.3); Phosphorus 5.6 mg/dL (2.5-4.5); Sodium 127 mmol/L (137-145)
--- NOTE | 2019-12-22 05:18 | PC.NURSE ---
This patient, Saleem Reyes, was transferred to [place] [id number] on 12/22/19 at 0518. Personal belongings sent with patient. Belongings list checked and signed with receiving [ ]. Report given to AMIE NAVARRO.[ ]. Appropriate documentation sent with patient.
--- NOTE | 2019-12-22 05:39 | PC.NURSE ---
This patient, Saleem Reyes, was received from [[facility]] on 12/22/19 at 0539. Personal belongings list checked and signed. Patient/family oriented to unit policies and routines
--- NOTE | 2019-12-22 05:40 | PC.NURSE ---
0529 CALLED MANDI TO UPDATE HER AND ALSO NEW TRANSFER RM [id number].
--- NOTE | 2019-12-22 08:23 | WPDGIPROGNO ---
Progress Note: A&P Additional Plan Patient alert and comfortable this morning. Tolerating diet. No bleeding reported. Physical exam reveals patient to be alert. He seems to be somewhat forgetful. HEENT exam reveals him to be anicteric. Lungs are clear. Heart without murmur. Abdomen is soft and nontender. Bowel sounds are normal active. Labs reveal WBC 6.6, hemoglobin 7.9, hematocrit 22.4, MCV 87. BUN 94 creatinine 10. Improving. Impression 1. Erosive esophagitis, 2. Duodenal ulcer. No signs of additional blood loss. Plan is to continue proton pump inhibitor. Diet as tolerated. 3. Anemia. Likely secondary to GI bleeding' as well as secondary to kidney disease. He likely has chronic anemia. Will continue to monitor hemoglobin intermittently. 4. Acute renal failure. Renal services following. Dialysis to continue. Workup for underlying etiology in progress. Subjective Date/time seen: 12/22/19 08:23 Objective Data Vital Signs Vital Signs: Vital Signs - 24 hr 12/21/19 09:04 12/21/19 10:00 12/21/19 12:00 Temperature 38.0 C H Pulse Rate 78 82 78 Respiratory Rate 16 Blood Pressure 125/63 Pulse Oximetry 93 12/21/19 12:52 12/21/19 13:52 12/21/19 14:00 Temperature 36.9 C 36.8 C Pulse Rate 82 81 82 Respiratory Rate 18 14 Blood Pressure 131/65 124/65 Pulse Oximetry 99 12/21/19 14:07 12/21/19 14:15 12/21/19 14:30 Temperature Pulse Rate 74 77 81 Respiratory Rate Blood Pressure 119/65 109/57 L 126/65 Pulse Oximetry 12/21/19 14:45 12/21/19 15:00 12/21/19 15:15 Temperature Pulse Rate 78 76 74 Respiratory Rate Blood Pressure 124/64 128/68 119/68 Pulse Oximetry 12/21/19 15:30 12/21/19 15:45 12/21/19 16:00 Temperature 37.2 C Pulse Rate 74 73 79 Respiratory Rate 14 Blood Pressure 118/61 150/60 H 114/62 Pulse Oximetry 99 12/21/19 16:15 12/21/19 16:30 12/21/19 16:37 Temperature Pulse Rate 78 76 80 Respiratory Rate Blood Pressure 116/58 L 108/60 127/62 Pulse Oximetry 12/21/19 16:42 12/21/19 18:00 12/21/19 20:00 Temperature 38.4 C H 36.7 C Pulse Rate 76 83 82 Respiratory Rate 16 20 Blood Pressure 119/61 125/61 Pulse Oximetry 96 12/21/19 21:47 12/21/19 23:40 12/22/19 00:00 Temperature 36.7 C Pulse Rate 76 74 81 Respiratory Rate 20 Blood Pressure 124/69 Pulse Oximetry 74 L 12/22/19 02:00 12/22/19 03:44 12/22/19 04:00 Temperature 36.8 C Pulse Rate 72 72 78 Respiratory Rate 18 Blood Pressure 119/47 L Pulse Oximetry 99 12/22/19 08:00 Temperature 37.6 C H Pulse Rate 91 Respiratory Rate 20 Blood Pressure 145/67 H Pulse Oximetry 93 Intake/Output Intake/Output: Intake & Output 12/19/19 12/20/19 12/21/19 12/22/19 23:59 23:59 23:59 23:59 Intake Total 2450 2460 1997 150 Output Total 1350 1600 3150 1400 Balance 1100 860 -1153 -1250 Meds/Results Medications: Active Medications Generic Name Dose Route Start Last Admin Trade Name Freq PRN Reason Stop Dose Admin Epoetin Damion 10,000 units 12/22/19 18:00 Epogen IV PUSH 12/22/19 18:01 ONCE ONE Folic Acid 1 mg 12/21/19 09:00 12/21/19 09:58 Folic Acid PO 1 mg DAILY DONNA Administration Sodium Bicarbonate 150 meq/ 1,100 mls @ 50 mls/hr 12/18/19 18:00 12/21/19 12:53 Dextrose IV CONT 50 mls/hr .Q22H DONNA Administration Albumin Human 50 mls @ 999 mls/hr 12/22/19 06:54 Albutein IVPB 01/21/20 06:55 Q10M PRN HYPOTENSION Lorazepam 1 mg 12/17/19 22:57 12/21/19 09:24 Ativan Inj IV PUSH 1 mg Q4H PRN Administration Withdrawal Naloxone HCl 0.1 mg 12/18/19 13:03 Narcan IV PUSH Q2M PRN Opiate Reversal Ondansetron HCl 4 mg 12/17/19 21:05 Zofran Inj IV PUSH Q4H PRN Nausea Pantoprazole Sodium 40 mg 12/19/19 10:35 12/21/19 21:33 Protonix Iv IV PUSH 40 mg Q12HR DONNA Administration Thiamine HCl 100 mg 12/21/19 09:00 12/21/19 09:58 Vitamin B-1
[2019-12-22] MEDS: THIAMINE HCL 100 MG TABLET PO (08:43)
[2019-12-22] MEDS: PANTOPRAZOLE SODIUM IV 40 MG VIAL IV PUSH ×2 (08:43→20:01)
[2019-12-22] MEDS: FOLIC ACID 1 MG TABLET PO (08:43)
--- NOTE | 2019-12-22 09:12 | PCPTNOTE ---
Attempted PT eval. Pt gone to dialysis. Will try again at later time.
--- NOTE | 2019-12-22 09:50 | PCOTNOTE ---
Attempted Occupational Therapy Evaluation on 12/22/19 at 9:50am pt out of room for dialysis.
--- NOTE | 2019-12-22 10:19 | PM.PNNEP ---
Progress Note: A&P Assessment and Plan (1) Acute kidney injury: Code(s): N17.9 - Acute kidney failure, unspecified Status: Acute Assessment and Plan: etiology not clear... evaluation to date demonstrates: - renal u/s normal size kidneys with no echogenicity - renal scan with uptake and some excretion but decreased throughout - UA with blood, glucose, and protein - lowish C3, normal C4, negative urine immunofixation, elevated kappa/lamda ratio; other serologies pending HOWEVER, continues to make good urine output at this time initiated on dialysis more so for clearance of uremic toxins HD today and plan renal biopsy tomorrow for a hopefully definitive diagnosis (2) Gastrointestinal bleed: Qualifiers: GI bleed type/associated pathology: unspecified gastrointestinal hemorrhage type Qualified Code(s): K92.2 - Gastrointestinal hemorrhage, unspecified Code(s): K92.2 - Gastrointestinal hemorrhage, unspecified Status: Acute Assessment and Plan: H/H stable at this time s/p EGD with findings of esophagitis and duodenal ulcer GI following (3) Acute hyponatremia: Code(s): E87.1 - Hypo-osmolality and hyponatremia Status: Acute Assessment and Plan: presumably due to renal failure and excessive free water intake prior to admission slow correction noted with dialysis follow trend of sodium (4) HTN (hypertension): Qualifiers: Hypertension type: essential hypertension Qualified Code(s): I10 - Essential (primary) hypertension Code(s): I10 - Essential (primary) hypertension Status: Acute Assessment and Plan: well controlled at this time follow trend of hemodynamics Will continue to follow Subjective Date/time seen: 12/22/19 10:19 Tolerating dialysis at the time of my visit (seen on HD at ~ 10:15AM); resting comfortably with no reported issues or problems overnight or earlier this AM; no apparent distress noted. Exam Narrative: Exam Narrative: General: WD/WN male in NAD Heart: normal S1 and S2; no rub Lungs: clear to auscultation Abdomen: soft, nontender, nondistended, positive bowel sounds Extremities: no cyanosis or clubbing; no edema Skin: warm and intact Objective Data Vital Signs Vital Signs: Vital Signs Temp Pulse Pulse Resp BP Pulse Ox 12/22/19 08:00 37.6 C H 91 84 20 145/67 H 93 12/22/19 04:00 36.8 C 78 18 119/47 L 99 12/22/19 03:44 72 12/22/19 02:00 72 12/22/19 00:00 81 12/21/19 23:40 36.7 C 74 20 124/69 74 L 12/21/19 21:47 76 12/21/19 20:00 36.7 C 82 20 125/61 96 12/21/19 18:00 83 12/21/19 16:42 38.4 C H 76 16 119/61 12/21/19 16:37 80 127/62 12/21/19 16:30 76 108/60 12/21/19 16:15 78 116/58 L 12/21/19 16:00 37.2 C 79 14 114/62 99 12/21/19 15:45 73 150/60 H 12/21/19 15:30 74 118/61 12/21/19 15:15 74 119/68 12/21/19 15:00 76 128/68 12/21/19 14:45 78 124/64 12/21/19 14:30 81 126/65 12/21/19 14:15 77 109/57 L 12/21/19 14:07 74 119/65 12/21/19 14:00 82 12/21/19 13:52 36.8 C 81 14 124/65 12/21/19 12:52 36.9 C 82 18 131/65 99 12/21/19 12:00 78 Intake/Output Intake/Output: Intake & Output 12/19/19 12/20/19 12/21/19 12/22/19 23:59 23:59 23:59 23:59 Intake Total 2450 2460 1997 630 Output Total 1350 1600 3150 1400 Balance 1100 867 -1153 -770 Meds/Results Medications: Active Medications Generic Name Dose Route Start Last Admin Trade Name Ant PRN Reason Stop Dose Admin Epoetin Damion 10,000 units 12/22/19 18:00 Epogen IV PUSH 12/22/19 18:01 ONCE ONE Folic Acid 1 mg 12/21/19 09:00 12/22/19 08:43 Folic Acid PO 1 mg DAILY DONNA Administration Sodium Bicarbonate 150 meq/ 1,100 mls @ 0 mls/hr 12/18/19 18:00 12/22/19 09:04 Dextrose IV CONT 0 mls/hr .
[2019-12-22] MEDS: EPOETIN ALFA 10,000 UNITS/ML VIAL 10000 UNITS IV PUSH (11:35)
--- NOTE | 2019-12-22 14:50 | PCPTNOTE ---
Attempted physical therapy evaluation 2x today. The patient was in dialysis the first time then attempted after dialysis and the patient was too tired to attempt. Requested eval be done later tonight or tomorrow. Dayna Otto PT
[2019-12-22] MEDS: ACETAMINOPHEN 325 MG TABLET 650 MG PO (17:14)
[2019-12-22] MEDS: SODIUM BICARBONATE 8.4% 150 MEQ in DEXTROSE 5% 1,000 ML 950 ML 50 MEQ IV CONT (17:15)
--- NOTE | 2019-12-22 17:20 | PM.IMPN ---
Progress Note: A&P Assessment and Plan (1) Acute kidney injury: Code(s): N17.9 - Acute kidney failure, unspecified Status: Acute Assessment and Plan: Nephrology consulted and appreciate input. Discussed with Dr. Kern. Etiology not exactly clear at this point. Renal ultrasound with normal kidneys. Renal scan with symmetric kidney function and delayed bilateral renal clearance left greater than right consistent with medical history of acute renal insufficiency. Additional testing in progress. Lane catheter placed on 12/18/2019 with hemodialysis done on 12/19/2019. Plan for hemodialysis again today, 12/21/2019, and tomorrow, 12/22/2019. Plan for renal biopsy on 12/23/2019. Will continue to monitor. Creatinine remains elevated at 13.20 on 12/20 and today 10.0. Will continue to follow. Telemetry reviewed on 12/21/2019 with sinus rhythm. If no issues with hemodialysis, will transfer to medical floor later today. 12/22/19 17:20 Patient is 59 year male admitted with GI bleed secondary to esophagitis and duodenal ulcer he also found to chronic kidney disease and had developed uremia seen by tunnel mucker toe patient is making urine and was recommended patient will benefit from dialysis and he has been having dialysis his BUN and creatinine are trending down he will have dialysis today, the he denies any complaints of cough and shortness of breath he is having fever his chest x-ray shows pneumonia concern the patient may be COVID, I have ordered the test with him to further evaluate, remain isolation until we find out status results, heme for pneumonia with Rocephin and doxycycline continue to monitor. (2) Hypokalemia: Code(s): E87.6 - Hypokalemia Status: Acute Assessment and Plan: Potassium 3.3 today. Will not replace as will have hemodialysis today. (3) Gastrointestinal bleed: Qualifiers: GI bleed type/associated pathology: unspecified gastrointestinal hemorrhage type Qualified Code(s): K92.2 - Gastrointestinal hemorrhage, unspecified Code(s): K92.2 - Gastrointestinal hemorrhage, unspecified Status: Acute Assessment and Plan: GI consulted and appreciate input. Patient with large melanotic stool on 12/18/2019 with subsequent further decrease in hemoglobin. Patient now S/P EGD by Dr. Nelson on 12/19/2019 with distal esophagitis and duodenal ulcers seen. Now on renal dialysis diet. Continue IV Protonix. Continue to monitor hemoglobin and hematocrit. Transfuse as needed. (4) Anemia: Qualifiers: Anemia type: other cause Other causes of anemia: acute posthemorrhagic Qualified Code(s): D62 - Acute posthemorrhagic anemia Code(s): D64.9 - Anemia, unspecified Status: Acute Assessment and Plan: Result of GI bleed as noted but may also have component of renal disease. Transfused total of 3 units PRBC on 12/18/2019. Hemoglobin decreased again to 6.6 on 12/20/2019 transfused 1 unit PRBC. Hgb 7.5 on 12/20 and 7.9 today. Will continue to monitor and transfuse as needed. (5) Duodenal ulcer: Code(s): K26.9 - Duodenal ulcer, unspecified as acute or chronic, without hemorrhage or perforation Status: Acute Assessment and Plan: Also as noted on EGD. Continue IV Protonix. (6) Esophagitis: Code(s): K20.9 - Esophagitis, unspecified Status: Acute Assessment and Plan: As noted on EGD. Continue IV Protonix. (7) Acute hyponatremia: Code(s): E87.1 - Hypo-osmolality and hyponatremia Status: Acute Assessment and Plan: Sodium now up to 124 on 12/20 and 127 today. Remains on IV sodium bicarb. Continue to follow. Nephrology following as noted above. (8) Thrombocytopenia: Code(s): D69.6 - Thrombocytopenia, unspecified Status: Acute Assessment and Plan: Likely secondary to chronic alcoholism. Platelets up to 153,000 today. Continue to monitor. (9) HTN (hypertension):
[2019-12-23] VITALS (13 sets, daily range): BP systolic 98–111; BP diastolic 55–69; PULSE 68–78; RESP 14–18; TEMP 36.9–37.8; O2SAT 90–97
[2019-12-23] MEDS: ACETAMINOPHEN 325 MG TABLET 650 MG PO (05:38)
[2019-12-23 06:01] LABS: Hematocrit 21.1 % (42.0-52.0); Hemoglobin 7.2 g/dL (14.0-18.0); Mean Corpuscular HGB Conc 34.1 g/dl (32-36); Mean Corpuscular Hemoglobin 30.8 pg (26-34); Mean Corpuscular Volume 90.2 fl (80-100); Mean Platelet Volume 9.3 fl (7.4-10.4); Platelet Count Result 251 k/mm3 (150-375); Red Blood Count 2.34 M/mm3 (4.6-6.20); Red Cell Distribution Width 13.2 % (11.5-14.5); White Blood Count 5.9 K/mm3 (4.5-10.0)
[2019-12-23 06:12] LABS: Albumin Level 2.6 g/dL (3.5-5.1); Blood Urea Nitrogen 46 mg/dL (9-20); Calcium 6.7 mg/dL (8.4-10.2); Carbon Dioxide 34 mmol/L (22-30); Chloride 88 mmol/L (98-107); Estimated CRCL calculation 12 ml/min; Estimated Glomerular Filt Rate 9; Glucose 106 mg/dL (75-110); Magnesium 1.4 mg/dL (1.6-2.3); Phosphorus 3.9 mg/dL (2.5-4.5); Potassium 2.9 mmol/L (3.4-5.0); Sodium 126 mmol/L (137-145)
[2019-12-23 06:14] LABS: Partial Thromboplastin Time 31.3 SECONDS (22.3-36.8)
--- NOTE | 2019-12-23 07:33 | WPDGIPROGNO ---
Progress Note: A&P Additional Plan Patient alert and comfortable this morning. Tolerating diet. No signs of additional bleeding. No abdominal pain reported. Physical exam reveals him to be alert. Abdomen is soft and nontender. No organomegaly appreciated. Labs reveal hemoglobin 7.2, hematocrit 21, MCV 90. BUN 46, creatinine 6.5, Iron 140, TIBC 200, 70% saturation, Impression 1. Erosive esophagitis and duodenal ulcer. Likely contributed to anemia to a some degree. Plan to continue proton pump inhibitor. Likely should be required long-term. Etiology is likely related to his chronic kidney disease. 2. Anemia. Iron indices suggest chronic anemia. No signs of active GI bleeding. Hemoglobin should be monitored conservatively. 3. Chronic kidney disease. He may have an acute component renal service is evaluating. Azotemia improving with dialysis. Subjective Date/time seen: 12/23/19 07:33 Objective Data Vital Signs Vital Signs: Vital Signs - 24 hr 12/22/19 08:00 12/22/19 09:45 12/22/19 10:00 Temperature 37.6 C H 38.4 C H Pulse Rate 91 80 83 Pulse Rate [Monitor] 84 Respiratory Rate 20 18 Blood Pressure 145/67 H 115/68 131/72 Pulse Oximetry 93 12/22/19 10:15 12/22/19 10:30 12/22/19 10:45 Temperature Pulse Rate 81 83 76 Pulse Rate [Monitor] Respiratory Rate Blood Pressure 111/63 129/74 123/67 Pulse Oximetry 12/22/19 11:00 12/22/19 11:15 12/22/19 11:30 Temperature Pulse Rate 85 76 79 Pulse Rate [Monitor] Respiratory Rate Blood Pressure 119/72 117/71 117/60 Pulse Oximetry 12/22/19 11:45 12/22/19 12:00 12/22/19 12:15 Temperature Pulse Rate 72 74 75 Pulse Rate [Monitor] Respiratory Rate Blood Pressure 121/75 115/73 129/75 Pulse Oximetry 12/22/19 12:30 12/22/19 12:45 12/22/19 13:00 Temperature 38.0 C H Pulse Rate 77 77 76 Pulse Rate [Monitor] Respiratory Rate 16 Blood Pressure 141/73 H 130/72 126/78 Pulse Oximetry 12/22/19 16:00 12/22/19 17:14 12/22/19 19:00 Temperature 38.0 C H 38.0 C H 37.8 C H Pulse Rate 87 Pulse Rate [Monitor] 84 Respiratory Rate 16 Blood Pressure 127/47 L Pulse Oximetry 96 12/22/19 20:00 12/22/19 20:33 12/22/19 22:34 Temperature 37.3 C 37.2 C Pulse Rate 68 Pulse Rate [Monitor] 68 Respiratory Rate 16 Blood Pressure 106/66 106/66 Pulse Oximetry 97 12/23/19 00:00 12/23/19 00:01 12/23/19 05:38 Temperature 37.1 C 37.8 C H Pulse Rate 69 Pulse Rate [Monitor] 68 Respiratory Rate 18 Blood Pressure 111/62 111/62 Pulse Oximetry 97 12/23/19 05:39 12/23/19 05:40 12/23/19 06:38 Temperature 37.8 C H 37.2 C Pulse Rate 77 Pulse Rate [Monitor] 77 Respiratory Rate 16 Blood Pressure 100/58 L 100/58 L Pulse Oximetry 94 Intake/Output Intake/Output: Intake & Output 12/20/19 12/21/19 12/22/19 12/23/19 23:59 23:59 23:59 23:59 Intake Total 2460 1997 2420 1010 Output Total 1600 3150 2400 1400 Balance 860 -0303 20 -390 Meds/Results Medications: Active Medications Generic Name Dose Route Start Last Admin Trade Name Freq PRN Reason Stop Dose Admin Acetaminophen 650 mg 12/22/19 16:53 12/23/19 05:38 Tylenol Tablet PO 650 mg Q6H PRN Administration Mild Pain (1-3) or Fever Folic Acid 1 mg 12/21/19 09:00 12/22/19 08:43 Folic Acid PO 1 mg DAILY DONNA Administration Sodium Bicarbonate 150 meq/ 1,100 mls @ 50 mls/hr 12/18/19 18:00 12/23/19 05:43 Dextrose IV CONT 50 mls/hr .Q22H DONNA Infusion Albumin Human 50 mls @ 999 mls/hr 12/22/19 06:54 Albutein IVPB 01/21/20 06:55 Q10M PRN HYPOTENSION Ceftriaxone Sodium/Dextrose 1 gm in 50 mls @ 100 mls/hr 12/22/19 18:00 12/22/19 17:56 Rocephin 1 Gm/D5w 50 Ml IVPB Infused Q24H DONNA Infusion Doxycycline Hyclate 100 mg/ 100 mls @ 100 mls/hr 12/22/19 21:00 12/22/19 21:00 Dextrose IVPB Infused Q12HR DONNA Infusion Lorazepam 1 mg 12/17/19 22:57 12/20
[2019-12-23] MEDS: PANTOPRAZOLE SODIUM IV 40 MG VIAL IV PUSH ×2 (09:59→21:31)
[2019-12-23] MEDS: FOLIC ACID 1 MG TABLET PO (09:59)
[2019-12-23] MEDS: THIAMINE HCL 100 MG TABLET PO (09:59)
[2019-12-23] MEDS: SODIUM BICARBONATE 8.4% 150 MEQ in DEXTROSE 5% 1,000 ML 950 ML 50 MEQ IV CONT (11:54)
[2019-12-23 12:21] LABS: SARS-CoV-2 RNA PCR Negative
--- NOTE | 2019-12-23 12:34 | PCOTNOTE ---
Attempted to see patient this pm, however patient sleeping soundly upon entering.
--- NOTE | 2019-12-23 15:14 | PM.IMPN ---
Progress Note: A&P Assessment and Plan (1) Acute kidney injury: Code(s): N17.9 - Acute kidney failure, unspecified Status: Acute Assessment and Plan: Nephrology consulted and appreciate input. Discussed with Dr. Kern. Etiology not exactly clear at this point. Renal ultrasound with normal kidneys. Renal scan with symmetric kidney function and delayed bilateral renal clearance left greater than right consistent with medical history of acute renal insufficiency. Additional testing in progress. Lane catheter placed on 12/18/2019 with hemodialysis done on 12/19/2019. Plan for hemodialysis again today, 12/21/2019, and tomorrow, 12/22/2019. Plan for renal biopsy on 12/23/2019. Will continue to monitor. Creatinine remains elevated at 13.20 on 12/20 and today 10.0. Will continue to follow. Telemetry reviewed on 12/21/2019 with sinus rhythm. If no issues with hemodialysis, will transfer to medical floor later today. 12/23/19 15:14 Patient is 59 year male admitted with GI bleed secondary to esophagitis and duodenal ulcer he also found to chronic kidney disease and had developed uremia seen by clinical neuropsychologist patient is making urine and was recommended patient will benefit from dialysis and he has been having dialysis his BUN and creatinine are trending down he had dialysis on 12/21 and today his cratnine has dropped to 6 compare to when he arrived with creatnine of 18., the he denied any complaints of cough and shortness of breath he was having fever his chest x-ray showed pneumonia concern the patient may be COVID, started the patient on Rocephin and doxycyline, I had ordered the test for him to further evaluate, which is negative and his repeat chest x-ray showed improvement in pnuemonia, he is taken off isolation, will repeat checks x-ray tomorrow if the patient remains afebrile and clinically stable will discharge the patient home tomorrow. (2) Hypokalemia: Code(s): E87.6 - Hypokalemia Status: Acute Assessment and Plan: Potassium 2.9 today. Will not replace as will have hemodialysis tomorrow and monitor . (3) Gastrointestinal bleed: Qualifiers: GI bleed type/associated pathology: unspecified gastrointestinal hemorrhage type Qualified Code(s): K92.2 - Gastrointestinal hemorrhage, unspecified Code(s): K92.2 - Gastrointestinal hemorrhage, unspecified Status: Acute Assessment and Plan: GI consulted and appreciate input. Patient with large melanotic stool on 12/18/2019 with subsequent further decrease in hemoglobin. Patient now S/P EGD by Dr. Nelson on 12/19/2019 with distal esophagitis and duodenal ulcers seen. Now on renal dialysis diet. Continue IV Protonix. Continue to monitor hemoglobin and hematocrit. Transfuse as needed. (4) Anemia: Qualifiers: Anemia type: other cause Other causes of anemia: acute posthemorrhagic Qualified Code(s): D62 - Acute posthemorrhagic anemia Code(s): D64.9 - Anemia, unspecified Status: Acute Assessment and Plan: Result of GI bleed as noted but may also have component of renal disease. Transfused total of 3 units PRBC on 12/18/2019. Hemoglobin decreased again to 6.6 on 12/20/2019 transfused 1 unit PRBC. Hgb 7.5 on 12/20 and 7.2 today. Will continue to monitor and transfuse as needed. (5) Duodenal ulcer: Code(s): K26.9 - Duodenal ulcer, unspecified as acute or chronic, without hemorrhage or perforation Status: Acute Assessment and Plan: Also as noted on EGD. Continue IV Protonix. (6) Esophagitis: Code(s): K20.9 - Esophagitis, unspecified Status: Acute Assessment and Plan: As noted on EGD. Continue IV Protonix. (7) Acute hyponatremia: Code(s): E87.1 - Hypo-osmolality and hyponatremia Status: Acute Assessment and Plan: Sodium now up to 124 on 12/20 and 126 today. Remains on IV sodium bicarb. Continue to follow. Nephrology following as noted abo
[2019-12-23] MEDS: POTASSIUM CHLORIDE 20 MEQ TABLET 40 MEQ PO (15:58)
[2019-12-23] MEDS: MAGNESIUM SULF 2 GM/WATER 50ML 2 GM/50 ML BAG IVPB (15:58)
--- NOTE | 2019-12-23 16:47 | WPDONCPN ---
Progress Note: A/P - Additional Plan Normocytic anemia with thrombocytopenia. This is secondary to acute renal failure with iron deficiency secondary to GI blood loss. EGD finding showed an ulcer and erosive esophagitis. Iron studies were not accurate as most likely was drawn after the blood transfusion. I will repeat iron studies today. Patient will need IV iron infusion which will be ordered. He will also continue Epogen with hemodialysis. Acute renal failure. Status post kidney biopsy. Creatinine has been improving with hemodialysis. - Time Spent With Patient Total time spent is greater than 50% in coordination of care (as documented) at patient's floor/unit and/or counseling patient: 15 - 25 minutes Subjective Interval history: Normocytic anemia Thrombocytopenia Acute renal failure Review of Systems - Review of Systems Patient looks comfortable. He denies any fevers and chills. Denies any melena and hematochezia. No other new complaints. - Neurologic Reports system reviewed and no additional complaints, except as documented, Denies confusion, Denies headache(s) Exam Vital signs: Salma Merchant. Assessment of coma and impaired consciousness. A practical scale. Lancet 1974; 2:81-4. Narrative: Lungs are clear to auscultation bilaterally Cardiovascular regular rate rhythm no murmurs Abdomen soft nontender nondistended bowel sounds are positive Extremities no edema PN: Objective Data - Labs CBC & Chem 7: 12/23/19 05:00 12/23/19 05:00 Labs: Laboratory Results - last 24 hr 12/22/19 12/23/19 12/23/19 17:49 05:00 05:00 WBC 5.9 RBC 2.34 L Hgb 7.2 L Hct 21.1 L MCV 90.2 MCH 30.8 MCHC 34.1 RDW 13.2 Plt Count 251 MPV 9.3 PT INR APTT Sodium 126 L Potassium 2.9 L Chloride 88 L Carbon Dioxide 34 H BUN 46 H D Creatinine 6.50 H Estim Creat Clear Calc 12 Estimated GFR 9 L Glucose 106 Calcium 6.7 L Phosphorus 3.9 Magnesium 1.4 L Albumin 2.6 L SARS-CoV-2 RNA (RT-PCR) Negative 12/23/19 05:00 WBC RBC Hgb Hct MCV MCH MCHC RDW Plt Count MPV PT 13.0 INR 1.0 APTT 31.3 Sodium Potassium Chloride Carbon Dioxide BUN Creatinine Estim Creat Clear Calc Estimated GFR Glucose Calcium Phosphorus Magnesium Albumin SARS-CoV-2 RNA (RT-PCR)
--- NOTE | 2019-12-23 16:50 | PCCCNOTE ---
Spoke with Floresita and pt scheduled for dialysis on at 1245
[2019-12-23] MEDS: MAGNESIUM OXIDE 400 MG TABLET PO (17:24)
--- NOTE | 2019-12-23 17:28 | PM.PNNEP ---
Progress Note: A&P Assessment and Plan (1) Acute kidney injury: Code(s): N17.9 - Acute kidney failure, unspecified Status: Acute Assessment and Plan: etiology not clear... evaluation to date demonstrates: - renal u/s normal size kidneys with no echogenicity - renal scan with uptake and some excretion but decreased throughout - UA with blood, glucose, and protein - lowish C3, normal C4, negative urine immunofixation, elevated kappa/lamda ratio; other serologies pending HOWEVER, continues to make good urine output at this time initiated on dialysis more so for clearance of uremic toxins HD yesterday and renal biopsy today for a hopefully definitive diagnosis tentatively plan HD tomorrow more so for further clearance of uremic toxins... (2) Gastrointestinal bleed: Qualifiers: GI bleed type/associated pathology: unspecified gastrointestinal hemorrhage type Qualified Code(s): K92.2 - Gastrointestinal hemorrhage, unspecified Code(s): K92.2 - Gastrointestinal hemorrhage, unspecified Status: Acute Assessment and Plan: H/H stable at this time s/p EGD with findings of esophagitis and duodenal ulcer GI following (3) Acute hyponatremia: Code(s): E87.1 - Hypo-osmolality and hyponatremia Status: Acute Assessment and Plan: presumably due to renal failure and excessive free water intake prior to admission slow correction noted with dialysis follow trend of sodium (4) HTN (hypertension): Qualifiers: Hypertension type: essential hypertension Qualified Code(s): I10 - Essential (primary) hypertension Code(s): I10 - Essential (primary) hypertension Status: Acute Assessment and Plan: well controlled at this time follow trend of hemodynamics Will continue to follow Subjective Date/time seen: 12/23/19 17:28 Tolerated dialysis yesterday and kidney biopsy earlier today -- no apparent distress voiced at the time of my visit; no events overnight or earlier this AM; feels reasonably well. Exam Narrative: Exam Narrative: General: WD/WN male in NAD Heart: normal S1 and S2; no rub Lungs: clear to auscultation Abdomen: soft, nontender, nondistended, positive bowel sounds Extremities: no cyanosis or clubbing; no edema Skin: warm and intact Objective Data Vital Signs Vital Signs: Vital Signs Temp Pulse Pulse Resp BP Pulse Ox 12/23/19 17:00 37.2 C 78 16 107/60 92 04/15/20 13:00 37.1 C 72 14 108/56 L 94 12/23/19 10:55 73 18 106/62 93 12/23/19 10:25 71 18 98/69 L 90 12/23/19 09:30 36.9 C 73 16 101/57 L 91 12/23/19 06:38 37.2 C 12/23/19 05:40 37.8 C H 77 16 100/58 L 94 12/23/19 05:39 77 100/58 L 12/23/19 05:38 37.8 C H 12/23/19 00:01 68 111/62 12/23/19 00:00 37.1 C 69 18 111/62 97 12/22/19 22:34 37.2 C 12/22/19 20:33 68 106/66 12/22/19 20:00 37.3 C 68 16 106/66 97 12/22/19 19:00 37.8 C H Intake/Output Intake/Output: Intake & Output 12/20/19 12/21/19 12/22/19 12/23/19 23:59 23:59 23:59 23:59 Intake Total 2460 1997 2420 1400 Output Total 1600 3150 2400 2875 Balance 860 -0366 80 -5183 Meds/Results Medications: Active Medications Generic Name Dose Route Start Last Admin Trade Name Juanq PRN Reason Stop Dose Admin Acetaminophen 650 mg 12/22/19 16:53 12/23/19 05:38 Tylenol Tablet PO 650 mg Q6H PRN Administration Mild Pain (1-3) or Fever Folic Acid 1 mg 12/21/19 09:00 12/23/19 09:59 Folic Acid PO 1 mg DAILY DONNA Administration Sodium Bicarbonate 150 meq/ 1,100 mls @ 50 mls/hr 12/18/19 18:00 12/23/19 11:54 Dextrose IV CONT 50 mls/hr .Q22H DONNA Administration Albumin Human 50 mls @ 999 mls/hr 12/22/19 06:54 Albutein IVPB 01/21/20 06:55 Q10M PRN HYPOTENSION Ceftriaxone Sodium/Dextrose 1 gm in 50 mls @ 100 mls/hr 12/22/19 18
[2019-12-23 18:15] LABS: Iron 23 ug/dL (49-181)
[2019-12-23 18:24] LABS: Percent Iron Saturation 10 % (20-50)
[2019-12-24] VITALS (29 sets, daily range): BP systolic 104–129; BP diastolic 55–71; PULSE 59–88; RESP 16–18; TEMP 36.1–37.6; O2SAT 93–97
[2019-12-24 05:50] LABS: Hematocrit 21.3 % (42.0-52.0); Hemoglobin 7.2 g/dL (14.0-18.0); Mean Corpuscular HGB Conc 33.8 g/dl (32-36); Mean Corpuscular Hemoglobin 30.9 pg (26-34); Mean Corpuscular Volume 91.4 fl (80-100); Mean Platelet Volume 9.4 fl (7.4-10.4); Platelet Count Result 299 k/mm3 (150-375); Red Blood Count 2.33 M/mm3 (4.6-6.20); Red Cell Distribution Width 13.2 % (11.5-14.5); White Blood Count 6.6 K/mm3 (4.5-10.0)
[2019-12-24 06:05] LABS: Albumin Level 2.6 g/dL (3.5-5.1); Blood Urea Nitrogen 46 mg/dL (9-20); Carbon Dioxide 35 mmol/L (22-30); Chloride 88 mmol/L (98-107); Estimated CRCL calculation 12 ml/min; Estimated Glomerular Filt Rate 8; Glucose 104 mg/dL (75-110); Magnesium 1.8 mg/dL (1.6-2.3); Phosphorus 3.3 mg/dL (2.5-4.5); Sodium 127 mmol/L (137-145)
--- NOTE | 2019-12-24 07:59 | WPDGIPROGNO ---
Progress Note: A&P Additional Plan Patient alert and feels comfortable today. Physical exam reveals him to be alert. Lungs are clear. Heart without murmur. Abdomen is soft and nontender. Impression 1. Erosive esophagitis and duodenal ulcer. Clinically improving. No signs of additional bleeding. Plan is to continue PPI. Avoid nonsteroidal anti-inflammatory agents. Diet as tolerated. 2. Anemia. Multifactorial. No additional bleeding at this time. Likely also anemic from severe kidney disease. Iron indices consistent with anemia of chronic disease. Iron replacement is anticipated per hematology service. 3. Acute renal failure. Now on dialysis. Etiology unclear. Nephrology service is following. 4. Confusion. Likely related azotemia. 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 Subjective Date/time seen: 12/24/19 07:59 Objective Data Vital Signs Vital Signs: Vital Signs - 24 hr 12/23/19 09:30 12/23/19 10:25 12/23/19 10:55 Temperature 36.9 C Pulse Rate 73 71 73 Pulse Rate [Monitor] Respiratory Rate 16 18 18 Blood Pressure 101/57 L 98/69 L 106/62 Pulse Oximetry 91 90 93 12/23/19 13:00 12/23/19 17:00 12/23/19 20:00 Temperature 37.1 C 37.2 C Pulse Rate 72 78 76 Pulse Rate [Monitor] 77 Respiratory Rate 14 16 18 Blood Pressure 108/56 L 107/60 104/55 L Pulse Oximetry 94 92 95 12/23/19 22:00 12/24/19 00:00 12/24/19 02:00 Temperature 37.2 C 37.4 C Pulse Rate 76 75 Pulse Rate [Monitor] 77 Respiratory Rate 18 18 Blood Pressure 104/55 L 104/55 L 110/65 Pulse Oximetry 95 94 12/24/19 04:00 12/24/19 06:00 Temperature 37.6 C Pulse Rate 78 Pulse Rate [Monitor] 77 Respiratory Rate 18 Blood Pressure 110/65 105/68 Pulse Oximetry 96 Intake/Output Intake/Output: Intake & Output 12/21/19 12/22/19 12/23/19 12/24/19 23:59 23:59 23:59 23:59 Intake Total 1996 7712 2056 761 Output Total 0402 7420 2976 1999 [facility] -3024 32 -144 -2597 Meds/Results Medications: Active Medications Generic Name Dose Route Start Last Admin Trade Name Freq PRN Reason Stop Dose Admin Acetaminophen 650 mg 12/22/19 16:53 12/23/19 05:38 Tylenol Tablet PO 650 mg Q6H PRN Administration Mild Pain (1-3) or Fever Epoetin Damion 10,000 units 12/24/19 18:30 Epogen IV PUSH 12/24/19 18:31 ONCE ONE Folic Acid 1 mg 12/21/19 09:00 12/23/19 09:59 Folic Acid PO 1 mg DAILY DONNA Administration Albumin Human 50 mls @ 999 mls/hr 12/22/19 06:54 Albutein IVPB 01/21/20 06:55 Q10M PRN HYPOTENSION Ceftriaxone Sodium/Dextrose 1 gm in 50 mls @ 100 mls/hr 12/22/19 18:00 12/23/19 19:15 Rocephin 1 Gm/D5w 50 Ml IVPB Infused Q24H DONNA Infusion Doxycycline Hyclate 100 mg/ 100 mls @ 100 mls/hr 12/22/19 21:00 12/23/19 22:37 Dextrose IVPB Infused Q12HR DONNA Infusion Iron Sucrose 200 mg/ Sodium 60 mls @ 240 mls/hr 12/24/19 18:30 Chloride IVPB 12/24/19 18:31 ONCE ONE Lorazepam 1 mg 12/17/19 22:57 12/21/19 09:24 Ativan Inj IV PUSH 1 mg Q4H PRN Administration Withdrawal Magnesium Oxide 400 mg 12/23/19 15:30 12/23/19 17:24 Mag-Ox PO 400 mg QAM DONNA Administration Naloxone HCl 0.1 mg 12/18/19 13:03 Narcan IV PUSH Q2M PRN Opiate Reversal Ondansetron HCl 4 mg 12/17/19 21:05 Zofran Inj IV PUSH Q4H PRN Nausea Pantoprazole Sodium 40 mg 12/19/19 10:35 12/23/19 21:31 Protonix Iv IV PUSH 40 mg Q12HR DONNA Administration Potassium Chloride 40 meq 12/24/19 01:04 Kcl Tablet PO DAILY@0800 PRN Hypokalemia - K+ < 3.0 Thiamine HCl 100 mg 12/21/19 09:00 12/23/19 09:59 Vitamin B-1 PO 100 mg QAM DONNA Administration Radiology Results: ITS Impressions Head CT 12/17/19 19:53 IMPRESSION: 1. No acute intracranial abnormality. 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 3: Chronic age-related findings. Cervical Spine CT
--- NOTE | 2019-12-24 11:39 | PM.IMPN ---
Progress Note: A&P Assessment and Plan (1) Acute kidney injury: Code(s): N17.9 - Acute kidney failure, unspecified Status: Acute Assessment and Plan: 12/24/19 11:39 Nephrology consulted and appreciate input. Discussed with Dr. Kern. Etiology not exactly clear at this point. Renal ultrasound with normal kidneys. Renal scan with symmetric kidney function and delayed bilateral renal clearance left greater than right consistent with medical history of acute renal insufficiency. Additional testing in progress. Lane catheter placed on 12/18/2019 with hemodialysis done on 12/19/2019. Plan for hemodialysis again today, 12/21/2019, and tomorrow, 12/22/2019. Plan for renal biopsy on 12/23/2019. Will continue to monitor. Creatinine remains elevated at 13.20 on 12/20 and today 10.0. Will continue to follow. Telemetry reviewed on 12/21/2019 with sinus rhythm. If no issues with hemodialysis, will transfer to medical floor later today. Patient is 59 year male admitted with GI bleed secondary to esophagitis and duodenal ulcer he also found to chronic kidney disease and had developed uremia seen by packaging designer patient is making urine and was recommended patient will benefit from dialysis and he has been having dialysis his BUN and creatinine are trending down he had dialysis on 12/21 and today his cratnine has dropped to 6 compare to when he arrived with creatnine of 18., the he denied any complaints of cough and shortness of breath he was having fever his chest x-ray showed pneumonia concern the patient may be COVID, started the patient on Rocephin and doxycyline, I had ordered the test for him to further evaluate, which is negative and his repeat chest x-ray showed improvement in pnuemonia, he is taken off isolation, will repeat checks x-ray showed improvement, if the patient remains afebrile and clinically stable will discharge the patient home tomorrow. (2) Hypokalemia: Code(s): E87.6 - Hypokalemia Status: Acute Assessment and Plan: Potassium 3.0 today. Will not replace as will have hemodialysis tomorrow and monitor . (3) Gastrointestinal bleed: Qualifiers: GI bleed type/associated pathology: unspecified gastrointestinal hemorrhage type Qualified Code(s): K92.2 - Gastrointestinal hemorrhage, unspecified Code(s): K92.2 - Gastrointestinal hemorrhage, unspecified Status: Acute Assessment and Plan: GI consulted and appreciate input. Patient with large melanotic stool on 12/18/2019 with subsequent further decrease in hemoglobin. Patient now S/P EGD by Dr. Nelson on 12/19/2019 with distal esophagitis and duodenal ulcers seen. Now on renal dialysis diet. Continue IV Protonix. Continue to monitor hemoglobin and hematocrit. Transfuse as needed. (4) Anemia: Qualifiers: Anemia type: other cause Other causes of anemia: acute posthemorrhagic Qualified Code(s): D62 - Acute posthemorrhagic anemia Code(s): D64.9 - Anemia, unspecified Status: Acute Assessment and Plan: Result of GI bleed as noted but may also have component of renal disease. Transfused total of 3 units PRBC on 12/18/2019. Hemoglobin decreased again to 6.6 on 12/20/2019 transfused 1 unit PRBC. Hgb 7.5 on 12/20 and 7.2 today. Will continue to monitor and transfuse as needed. (5) Duodenal ulcer: Code(s): K26.9 - Duodenal ulcer, unspecified as acute or chronic, without hemorrhage or perforation Status: Acute Assessment and Plan: Also as noted on EGD. Continue IV Protonix. (6) Esophagitis: Code(s): K20.9 - Esophagitis, unspecified Status: Acute Assessment and Plan: As noted on EGD. Continue IV Protonix. (7) Acute hyponatremia: Code(s): E87.1 - Hypo-osmolality and hyponatremia Status: Acute Assessment and Plan: Sodium now up to 124 on 12/20 and 126 today. Remains on IV sodium bicarb. Continue to follow. Nephrology following a
[2019-12-24] MEDS: EPOETIN ALFA 10,000 UNITS/ML VIAL 10000 UNITS IV PUSH (12:02)
--- NOTE | 2019-12-24 12:02 | PM.PNNEP ---
Progress Note: A&P Assessment and Plan (1) Acute kidney injury: Code(s): N17.9 - Acute kidney failure, unspecified Status: Acute Assessment and Plan: etiology not clear... evaluation to date demonstrates: - renal u/s normal size kidneys with no echogenicity - renal scan with uptake and some excretion but decreased throughout - UA with blood, glucose, and protein - lowish C3, normal C4 - urine immunofixation negative but serum immunofixation pending - BENTLEY and ANCA negative - elevated kappa/lamda ratio HOWEVER, continues to make good urine output at this time initiated on dialysis more so for clearance of uremic toxins s/p renal biopsy yesterday for a hopefully definitive diagnosis - preliminary results later today(?) HD today more so for further clearance of uremic toxins and stabilization of electrolytes (2) Gastrointestinal bleed: Qualifiers: GI bleed type/associated pathology: unspecified gastrointestinal hemorrhage type Qualified Code(s): K92.2 - Gastrointestinal hemorrhage, unspecified Code(s): K92.2 - Gastrointestinal hemorrhage, unspecified Status: Acute Assessment and Plan: H/H stable at this time s/p EGD with findings of esophagitis and duodenal ulcer GI following component of iron deficiency present as well (based on anemia studies) Epogen and venofer with dialysis (3) Acute hyponatremia: Code(s): E87.1 - Hypo-osmolality and hyponatremia Status: Acute Assessment and Plan: presumably due to renal failure and excessive free water intake prior to admission slow correction noted with dialysis follow trend of sodium (4) HTN (hypertension): Qualifiers: Hypertension type: essential hypertension Qualified Code(s): I10 - Essential (primary) hypertension Code(s): I10 - Essential (primary) hypertension Status: Acute Assessment and Plan: well controlled at this time follow trend of hemodynamics Will continue to follow Subjective Date/time seen: 12/24/19 12:02 Tolerating dialysis at the time of my visit (seen on HD at ~ 11:45AM); no apparent distress voiced; no issues or problems overnight; feels reasonably well at this time. Exam Narrative: Exam Narrative: General: WD/WN male in NAD Heart: normal S1 and S2; no rub Lungs: clear to auscultation Abdomen: soft, nontender, nondistended, positive bowel sounds Extremities: no cyanosis or clubbing; no edema Skin: no rash or nodules Objective Data Vital Signs Vital Signs: Vital Signs Temp Pulse Pulse Resp BP Pulse Ox 12/24/19 12:00 68 118/67 12/24/19 11:45 66 118/63 12/24/19 11:30 59 L 118/66 12/24/19 11:15 66 123/66 12/24/19 11:00 67 119/68 12/24/19 10:45 69 117/64 12/24/19 10:30 70 125/65 12/24/19 10:15 70 129/65 12/24/19 10:00 66 112/66 12/24/19 09:45 68 115/64 12/24/19 09:30 77 110/64 12/24/19 09:15 73 115/61 12/24/19 09:04 77 107/61 12/24/19 08:45 37.3 C 84 16 108/61 12/24/19 08:35 77 112/66 12/24/19 06:00 37.6 C 78 18 105/68 96 12/24/19 04:00 77 110/65 12/24/19 02:00 37.4 C 75 18 110/65 94 12/24/19 00:00 77 104/55 L 12/23/19 22:00 37.2 C 76 18 104/55 L 95 12/23/19 20:00 76 77 18 104/55 L 95 12/23/19 17:00 37.2 C 78 16 107/60 92 12/23/19 13:00 37.1 C 72 14 108/56 L 94 Intake/Output Intake/Output: Intake & Output 12/21/19 12/22/19 12/23/19 12/24/19 23:59 23:59 23:59 23:59 Intake Total 1996 2420 2425 1001 Output Total 0320 2400 3300 1999 [facility] -[phone] Meds/Results Medications: Active Medications Generic Name Dose Route Start Last Admin Trade Name Freq PRN Reason Stop Dose Admin Acetaminophen 650 mg 12/22/19 16:53 12/23/19 05:38 Tylenol Tablet PO 650 mg Q6H PRN Administration Mi
[2019-12-24] MEDS: PANTOPRAZOLE SODIUM IV 40 MG VIAL IV PUSH ×2 (13:05→21:13)
--- NOTE | 2019-12-24 13:09 | PCDIET ---
Nutrition LOS Complete: Pt current nutrition is heart healthy*. Nutrition recommendation: agree Last recorded weight is 96.4 kg. Bowel Motility:12/22 BM + Labs Reviewed:Ferritin 743, Fe 23, Na 127, K3.0 GFR 8 Cr 6.70 Meds Noted: Fe, albumin, Epogen, Folic Acid, Thiamin, Protonix, Mg ox Additional Notes: Seeing pt 2/2 to los. Pt is on an appropriate diet and eating 90-100% of meals. Elevated ferritin of 743 suggestive of an inflammatory process occurring in body. Dialysis initiated on pt. Weight steady. Recommend PO4 lab to assess for appropriateness of renal dialysis diet. K is low today at 3.0. We will continue to monitor pt every five days to track PO intake,wt, and need for education prior to d/c.
[2019-12-24] MEDS: FOLIC ACID 1 MG TABLET PO (13:10)
[2019-12-24] MEDS: POTASSIUM CHLORIDE 20 MEQ TABLET 40 MEQ PO (13:11)
[2019-12-24] MEDS: MAGNESIUM OXIDE 400 MG TABLET PO (13:11)
[2019-12-24] MEDS: THIAMINE HCL 100 MG TABLET PO (13:11)
[2019-12-24] MEDS: IRON SUCROSE COMPLEX 500 MG in SODIUM CHLORIDE 0.9% IV 250 ML 78.6 MG IVPB (14:40)
--- NOTE | 2019-12-24 17:36 | WPDONCPN ---
Progress Note: A/P - Additional Plan Normocytic anemia. This is multifactorial secondary to acute renal failure and iron deficiency secondary to GI bleed. Repeat iron studies consistent with iron deficiency. I will start her on Venofer 500 mg daily for 2 days. He will also continue Epogen with hemodialysis. Flow cytometry for PNH came back negative. No need for blood transfusion at this time. Acute renal failure. Status post kidney biopsy. Pathology is pending. Patient will continue hemodialysis. Creatinine is slowly improving. - Time Spent With Patient Total time spent is greater than 50% in coordination of care (as documented) at patient's floor/unit and/or counseling patient: 15 - 25 minutes Subjective Interval history: Normocytic anemia Thrombocytopenia Acute renal failure the Review of Systems - Review of Systems Patient is came back from hemodialysis. He is feeling good denies any melena and hematochezia. Denies any abdominal pain. Denies any excessive tiredness and fatigue. No other new complaints. - Neurologic Reports system reviewed and no additional complaints, except as documented, Denies confusion, Denies headache(s) Exam Vital signs: Salma Merchant. Assessment of coma and impaired consciousness. A practical scale. Lancet 1974; 2:81-4. Narrative: Lungs are clear to auscultation bilaterally Cardiovascular regular rate rhythm no murmurs Abdomen soft nontender nondistended bowel sounds are positive Extremities no edema PN: Objective Data - Labs CBC & Chem 7: 12/24/19 05:07 12/24/19 05:07 Labs: Laboratory Results - last 24 hr 12/17/19 12/22/19 12/23/19 23:19 17:49 17:16 WBC RBC Hgb Hct MCV MCH MCHC RDW Plt Count MPV Sodium Potassium Chloride Carbon Dioxide BUN Creatinine Estim Creat Clear Calc Estimated GFR Glucose Calcium Phosphorus Magnesium Iron 23 L TIBC 229 L % Saturation 10 L Ferritin 743.00 H Albumin Serum Immunofixation see below SARS-CoV-2 RNA (RT-PCR) Negative 12/24/19 12/24/19 05:07 05:07 WBC 6.6 RBC 2.33 L Hgb 7.2 L Hct 21.3 L MCV 91.4 MCH 30.9 MCHC 33.8 RDW 13.2 Plt Count 299 MPV 9.4 Sodium 127 L Potassium 3.0 L Chloride 88 L Carbon Dioxide 35 H BUN 46 H Creatinine 6.70 H Estim Creat Clear Calc 12 Estimated GFR 8 L Glucose 104 Calcium 7.0 L Phosphorus 3.3 Magnesium 1.8 Iron TIBC % Saturation Ferritin Albumin 2.6 L Serum Immunofixation SARS-CoV-2 RNA (RT-PCR)
[2019-12-24 19:08] LABS: Blood Urea Nitrogen 20 mg/dL (9-20); Calcium 7.8 mg/dL (8.4-10.2); Carbon Dioxide 28 mmol/L (22-30); Chloride 98 mmol/L (98-107); Estimated CRCL calculation 22 ml/min; Estimated Glomerular Filt Rate 17; Glucose 138 mg/dL (75-110); Sodium 131 mmol/L (137-145)
[2019-12-25 05:30] LABS: Hematocrit 22.1 % (42.0-52.0); Hemoglobin 7.3 g/dL (14.0-18.0); Mean Corpuscular Hemoglobin 30.5 pg (26-34); Mean Corpuscular Volume 92.5 fl (80-100); Mean Platelet Volume 9.2 fl (7.4-10.4); Platelet Count Result 372 k/mm3 (150-375); Red Blood Count 2.39 M/mm3 (4.6-6.20); Red Cell Distribution Width 13.3 % (11.5-14.5)
[2019-12-25 05:53] LABS: Albumin Level 2.7 g/dL (3.5-5.1); Blood Urea Nitrogen 22 mg/dL (9-20); Carbon Dioxide 27 mmol/L (22-30); Chloride 100 mmol/L (98-107); Estimated CRCL calculation 20 ml/min; Estimated Glomerular Filt Rate 16; Glucose 106 mg/dL (75-110); Phosphorus 1.5 mg/dL (2.5-4.5); Potassium 3.7 mmol/L (3.4-5.0); Sodium 130 mmol/L (137-145)
[2019-12-25 06:28] VITALS: BP 106/62; PULSE 78; RESP 18; TEMP 37; O2SAT 94
--- NOTE | 2019-12-25 07:49 | WPDGIPROGNO ---
Progress Note: A&P Additional Plan Patient alert and comfortable this morning. Tolerating diet. No signs of bleeding. He denies abdominal pain. Alert and oriented less confused today physical exam reveals vital signs stable. HEENT exam unremarkable. Lungs are clear to auscultation and percussion. Heart without murmur. Abdomen is soft and nontender. Bowel sounds normoactive. Impression 1. Erosive esophagitis and duodenal ulcer. Clinically improved. No signs of recent GI bleeding. Hemoglobin stable. Plan is to keep on PPI. Avoid nonsteroidal anti-inflammatory agents. 2. Acute renal failure. ATN suspected. Long-term dialysis anticipated. Likely etiology for his stress ulcer. 3. Anemia. Multifactorial. Anemia chronic disease by iron studies. Agree with Epogen plan by Hematology Service Subjective Date/time seen: 12/25/19 07:49 Objective Data Vital Signs Vital Signs: Vital Signs - 24 hr 12/24/19 08:35 12/24/19 08:45 12/24/19 09:04 Temperature 37.3 C Pulse Rate 84 77 Pulse Rate [Monitor] 77 Respiratory Rate 16 Blood Pressure 112/66 108/61 107/61 Pulse Oximetry 12/24/19 09:15 12/24/19 09:30 12/24/19 09:45 Temperature Pulse Rate 73 77 68 Pulse Rate [Monitor] Respiratory Rate Blood Pressure 115/61 110/64 115/64 Pulse Oximetry 12/24/19 10:00 12/24/19 10:15 12/24/19 10:30 Temperature Pulse Rate 66 70 70 Pulse Rate [Monitor] Respiratory Rate Blood Pressure 112/66 129/65 125/65 Pulse Oximetry 12/24/19 10:45 12/24/19 11:00 12/24/19 11:15 Temperature Pulse Rate 69 67 66 Pulse Rate [Monitor] Respiratory Rate Blood Pressure 117/64 119/68 123/66 Pulse Oximetry 12/24/19 11:30 12/24/19 11:45 12/24/19 12:00 Temperature Pulse Rate 59 L 66 68 Pulse Rate [Monitor] Respiratory Rate Blood Pressure 118/66 118/63 118/67 Pulse Oximetry 12/24/19 12:15 12/24/19 12:30 12/24/19 12:34 Temperature Pulse Rate 69 68 69 Pulse Rate [Monitor] Respiratory Rate Blood Pressure 126/69 127/71 128/68 Pulse Oximetry 12/24/19 12:39 12/24/19 14:27 12/24/19 16:00 Temperature 37.4 C 36.6 C Pulse Rate 68 76 Pulse Rate [Monitor] 77 Respiratory Rate 16 18 Blood Pressure 120/71 105/65 105/65 Pulse Oximetry 96 12/24/19 18:23 12/24/19 21:12 12/24/19 21:21 Temperature 36.1 C L 37.1 C Pulse Rate 88 74 Pulse Rate [Monitor] 77 Respiratory Rate 16 18 Blood Pressure 112/65 104/65 104/65 Pulse Oximetry 97 93 12/25/19 06:28 Temperature 37.0 C Pulse Rate 78 Pulse Rate [Monitor] Respiratory Rate 18 Blood Pressure 106/62 Pulse Oximetry 94 Intake/Output Intake/Output: Intake & Output 12/22/19 12/23/19 12/24/19 12/25/19 23:59 23:59 23:59 23:59 Intake Total 2420 2425 2661 250 Output Total 2400 3300 3500 1850 Balance 33 -724 -412 -8832 Meds/Results Medications: Active Medications Generic Name Dose Route Start Last Admin Trade Name Freq PRN Reason Stop Dose Admin Acetaminophen 650 mg 12/22/19 16:53 12/23/19 05:38 Tylenol Tablet PO 650 mg Q6H PRN Administration Mild Pain (1-3) or Fever Folic Acid 1 mg 12/21/19 09:00 12/24/19 13:10 Folic Acid PO 1 mg DAILY DONNA Administration Albumin Human 50 mls @ 999 mls/hr 12/22/19 06:54 Albutein IVPB 01/21/20 06:55 Q10M PRN HYPOTENSION Ceftriaxone Sodium/Dextrose 1 gm in 50 mls @ 100 mls/hr 12/22/19 18:00 12/24/19 17:53 Rocephin 1 Gm/D5w 50 Ml IVPB Infused Q24H DONNA Infusion Doxycycline Hyclate 100 mg/ 100 mls @ 100 mls/hr 12/22/19 21:00 12/24/19 22:12 Dextrose IVPB Infused Q12HR DONNA Infusion Iron Sucrose 500 mg/ Sodium 275 mls @ 78.571 mls/hr 12/25/19 12:00 Chloride IVPB 12/25/19 15:29 ONCE ONE Lorazepam 1 mg 12/17/19 22:57 12/21/19 09:24 Ativan Inj IV PUSH 1 mg Q4H PRN Administration Withdrawal Magnesium Oxide 400 mg 12/23/19 15:30 12/24/19 13:11 Mag-Ox PO
[2019-12-25] MEDS: POTASSIUM CHLORIDE 20 MEQ TABLET.ER 40 MEQ PO (08:50)
[2019-12-25] MEDS: FOLIC ACID 1 MG TABLET PO (08:50)
[2019-12-25] MEDS: PANTOPRAZOLE SODIUM IV 40 MG VIAL IV PUSH ×2 (08:51→21:39)
[2019-12-25] MEDS: THIAMINE HCL 100 MG TABLET PO (08:51)
[2019-12-25] MEDS: MAGNESIUM OXIDE 400 MG TABLET PO (08:51)
--- NOTE | 2019-12-25 10:15 | PM.DS ---
DS: Diagnosis Admitting Diagnosis Admitting Diagnosis: Acute kidney failure, unspecified Discharge Diagnosis (1) Acute kidney injury: Code(s): N17.9 - Acute kidney failure, unspecified Status: Acute Assessment and Plan: Patient admitted with acute kidney injury. Dialysis catheter placed. Biopsy revealed ATN. Creatinine improved from over 14-4.4 by day of discharge. Tolerating dialysis well. Was to continue to follow-up at dialysis Saturdays as outpatient and hopes to wean from dialysis as his kidneys continue to improve. (2) Hypokalemia: Code(s): E87.6 - Hypokalemia Status: Acute Assessment and Plan: Resolved with potassium replacement (3) Gastrointestinal bleed: Qualifiers: GI bleed type/associated pathology: unspecified gastrointestinal hemorrhage type Qualified Code(s): K92.2 - Gastrointestinal hemorrhage, unspecified Code(s): K92.2 - Gastrointestinal hemorrhage, unspecified Status: Acute Assessment and Plan: GI consulted and appreciate input. Patient with large melanotic stool on 12/18/2019 with subsequent further decrease in hemoglobin. Patient now S/P EGD by Dr. Nelson on 12/19/2019 with distal esophagitis and duodenal ulcers seen. Now on renal dialysis diet. Continue Protonix. Follow-up as outpatient. (4) Anemia: Qualifiers: Anemia type: other cause Other causes of anemia: acute posthemorrhagic Qualified Code(s): D62 - Acute posthemorrhagic anemia Code(s): D64.9 - Anemia, unspecified Status: Acute Assessment and Plan: Result of GI bleed as noted but may also have component of renal disease. Transfused total of 3 units PRBC on 12/18/2019. Hemoglobin decreased again to 6.6 on 12/20/2019 transfused 1 unit PRBC. Hgb 7.5 on 12/20 and 7.5 at discharge. Will continue to monitor and transfuse as needed. (5) Duodenal ulcer: Code(s): K26.9 - Duodenal ulcer, unspecified as acute or chronic, without hemorrhage or perforation Status: Acute Assessment and Plan: Also as noted on EGD. Continue Protonix (6) Esophagitis: Code(s): K20.9 - Esophagitis, unspecified Status: Acute Assessment and Plan: As noted on EGD. Continue Protonix. (7) Acute hyponatremia: Code(s): E87.1 - Hypo-osmolality and hyponatremia Status: Acute Assessment and Plan: Sodium now up to 124 on 12/20 and 135 today. Remains on IV sodium bicarb. Continue to follow. Nephrology following as noted above. (8) Thrombocytopenia: Code(s): D69.6 - Thrombocytopenia, unspecified Status: Acute Assessment and Plan: Likely secondary to chronic alcoholism. Platelets up to 408k today. Continue to monitor. (9) HTN (hypertension): Qualifiers: Hypertension type: essential hypertension Qualified Code(s): I10 - Essential (primary) hypertension Code(s): I10 - Essential (primary) hypertension Status: Acute Assessment and Plan: Blood pressure reviewed on 12/21/2019 with variability noted but acceptable. Not on medication. Follow-up as outpatient (10) Metabolic acidosis: Code(s): E87.2 - Acidosis Status: Resolved Assessment and Plan: Secondary to acute renal failure. Resolved. Remains on IV bicarb. (11) Alcohol abuse: Code(s): F10.10 - Alcohol abuse, uncomplicated Status: Acute Assessment and Plan: CIWA-AR protocol during hospitalization. No sign of withdrawal this time. (12) HLD (hyperlipidemia): Qualifiers: Hyperlipidemia type: unspecified Qualified Code(s): E78.5 - Hyperlipidemia, unspecified Code(s): E78.5 - Hyperlipidemia, unspecified Status: Acute Assessment and Plan: Continue to hold rosuvastatin for now. (13) DVT prophylaxis: Code(s): Z29.9 - Encounter for prophylactic measures, unspecified Status: Acute Assessment and Plan: SCDs
[2019-12-25] MEDS: IRON SUCROSE COMPLEX 500 MG in SODIUM CHLORIDE 0.9% IV 250 ML 78.6 MG IVPB (11:13)
--- NOTE | 2019-12-25 14:08 | P.PNNP_ITS ---
Progress Note: A&P Assessment and Plan (1) Acute kidney injury: Code(s): N17.9 - Acute kidney failure, unspecified Status: Acute Assessment and Plan: * due to biopsy proven acute tubular necrosis * theoretically, kidney function should recover but it make time (weeks versus months) - however, there is still a possibility the he may not recover, particularly given the severity of the acute insult * still making good urine which is favorable sign * will need to continue dialysis on discharge until definitive signs of renal recovery * HD tomorrow (will be on outpatient schedule of T/T/S) (2) Gastrointestinal bleed: Qualifiers: GI bleed type/associated pathology: unspecified gastrointestinal hemorrhage type Qualified Code(s): K92.2 - Gastrointestinal hemorrhage, unspecified Code(s): K92.2 - Gastrointestinal hemorrhage, unspecified Status: Acute Assessment and Plan: * H/H stable at this time * s/p EGD with findings of esophagitis and duodenal ulcer * GI following * component of iron deficiency present as well (based on anemia studies) * Epogen and venofer with dialysis (3) Acute hyponatremia: Code(s): E87.1 - Hypo-osmolality and hyponatremia Status: Acute Assessment and Plan: * presumably due to renal failure and excessive free water intake prior to a dmission * slow correction noted with dialysis * follow trend of sodium (4) HTN (hypertension): Qualifiers: Hypertension type: essential hypertension Qualified Code(s): I10 - Essential (primary) hypertension Code(s): I10 - Essential (primary) hypertension Status: Acute Assessment and Plan: * well controlled at this time * follow trend of hemodynamics Will continue to follow Subjective Date/time seen: 12/25/19 14:08 Appears to be doing quite well; a bit disheartened about discharge being delayed till tomorrow (due to outpatient dialysis arrangements); no apparent distress at this time. Exam Narrative: Exam Narrative: General: WD/WN male in NAD Heart: normal S1 and S2; no rub Lungs: clear to auscultation Abdomen: soft, nontender, nondistended, positive bowel sounds Extremities: no cyanosis or clubbing; no edema Skin: warm and dry Objective Data Vital Signs Vital Signs: Vital Signs Temp Pulse Pulse Resp BP Pulse Ox 12/25/19 06:28 37.0 C 78 18 106/62 94 12/24/19 21:21 37.1 C 74 18 104/65 93 12/24/19 21:12 77 104/65 12/24/19 18:23 36.1 C L 88 16 112/65 97 12/24/19 16:00 77 105/65 12/24/19 14:27 36.6 C 76 18 105/65 96 Intake/Output Intake/Output: Intake & Output 12/22/19 12/23/19 12/24/19 12/25/19 23:59 23:59 23:59 23:59 Intake Total 2420 2425 2661 1110 Output Total 2400 3300 3500 2450 Balance 60 -138 -340 -1715 Meds/Results Medications: Active Medications Generic Name Dose Route Start Last Admin Trade Name Freq PRN Reason Stop Dose Admin Acetaminophen 650 mg 12/22/19 16:53 12/23/19 05:38 Tylenol Tablet PO 650 mg Q6H PRN Administration Mild Pain (1-3) or Fever Folic Acid 1 mg 12/21/19 09:00 12/25/19 08:50 Folic
--- NOTE | 2019-12-25 14:08 | PM.PNNEP ---
Progress Note: A&P Assessment and Plan (1) Acute kidney injury: Code(s): N17.9 - Acute kidney failure, unspecified Status: Acute Assessment and Plan: due to biopsy proven acute tubular necrosis theoretically, kidney function should recover but it make time (weeks versus months) - however, there is still a possibility the he may not recover, particularly given the severity of the acute insult still making good urine which is favorable sign will need to continue dialysis on discharge until definitive signs of renal recovery HD tomorrow (will be on outpatient schedule of T/T/S) (2) Gastrointestinal bleed: Qualifiers: GI bleed type/associated pathology: unspecified gastrointestinal hemorrhage type Qualified Code(s): K92.2 - Gastrointestinal hemorrhage, unspecified Code(s): K92.2 - Gastrointestinal hemorrhage, unspecified Status: Acute Assessment and Plan: H/H stable at this time s/p EGD with findings of esophagitis and duodenal ulcer GI following component of iron deficiency present as well (based on anemia studies) Epogen and venofer with dialysis (3) Acute hyponatremia: Code(s): E87.1 - Hypo-osmolality and hyponatremia Status: Acute Assessment and Plan: presumably due to renal failure and excessive free water intake prior to admission slow correction noted with dialysis follow trend of sodium (4) HTN (hypertension): Qualifiers: Hypertension type: essential hypertension Qualified Code(s): I10 - Essential (primary) hypertension Code(s): I10 - Essential (primary) hypertension Status: Acute Assessment and Plan: well controlled at this time follow trend of hemodynamics Will continue to follow Subjective Date/time seen: 12/25/19 14:08 Appears to be doing quite well; a bit disheartened about discharge being delayed till tomorrow (due to outpatient dialysis arrangements); no apparent distress at this time. Exam Narrative: Exam Narrative: General: WD/WN male in NAD Heart: normal S1 and S2; no rub Lungs: clear to auscultation Abdomen: soft, nontender, nondistended, positive bowel sounds Extremities: no cyanosis or clubbing; no edema Skin: warm and dry Objective Data Vital Signs Vital Signs: Vital Signs Temp Pulse Pulse Resp BP Pulse Ox 12/25/19 06:28 37.0 C 78 18 106/62 94 12/24/19 21:21 37.1 C 74 18 104/65 93 12/24/19 21:12 77 104/65 12/24/19 18:23 36.1 C L 88 16 112/65 97 12/24/19 16:00 77 105/65 12/24/19 14:27 36.6 C 76 18 105/65 96 Intake/Output Intake/Output: Intake & Output 12/22/19 12/23/19 12/24/19 12/25/19 23:59 23:59 23:59 23:59 Intake Total 2420 2425 2661 1110 Output Total 2400 3300 3500 2450 Balance 80 -825 -724 -5951 Meds/Results Medications: Active Medications Generic Name Dose Route Start Last Admin Trade Name Freq PRN Reason Stop Dose Admin Acetaminophen 650 mg 12/22/19 16:53 12/23/19 05:38 Tylenol Tablet PO 650 mg Q6H PRN Administration Mild Pain (1-3) or Fever Folic Acid 1 mg 12/21/19 09:00 12/25/19 08:50 Folic Acid PO 1 mg DAILY DONNA Administration Albumin Human 50 mls @ 999 mls/hr 12/22/19 06:54 Albutein IVPB 01/21/20 06:55 Q10M PRN HYPOTENSION Ceftriaxone Sodium/Dextrose 1 gm in 50 mls @ 100 mls/hr 12/22/19 18:00 12/24/19 17:53 Rocephin 1 Gm/D5w 50 Ml IVPB Infused Q24H DONNA Infusion Doxycycline Hyclate 100 mg/ 100 mls @ 100 mls/hr 12/22/19 21:00 12/25/19 09:50 Dextrose IVPB Infused Q12HR DONNA Infusion Iron Sucrose 500 mg/ Sodium 275 mls @ 78.571 mls/hr 12/25/19 12:00 12/25/19 11:13 Chloride IVPB 12/25/19 15:29 78.6 mls/hr ONCE ONE Administration Lorazepam 1 mg 12/17/19 22:57 12/21/19 09:24 Ativan Inj IV PUSH 1 mg
--- NOTE | 2019-12-25 14:28 | P.PNONC_ITS ---
Progress Note: A/P - Additional Plan Normocytic anemia. This is due to acute renal failure and iron deficiency likely from GI bleed. Clinically he is asymptomatic without any further bleeding complaints. Hemoglobin is stable. Patient will continue 2nd round of IV iron infusion. Patient will also continue Epogen with hemodialysis. Patient should go home on oral iron with ferrous sulfate 325 mg twice a day. I will see him back in 4 weeks in my office to check CBC and iron studies. Acute renal failure. Status post kidney biopsy that showed acute tubular necrosis. Patient will continue hemodialysis and an outpatient. - Time Spent With Patient Total time spent is greater than 50% in coordination of care (as documented) at patient's floor/unit and/or counseling patient: 15 - 25 minutes Subjective Interval history: Normocytic anemia Thrombocytopenia Acute renal failure the Review of Systems - Review of Systems Patient looks quite comfortable. He denies any bleeding and bruising. No aubrey na and hematochezia. Denies any fevers and chills. - Neurologic Reports system reviewed and no additional complaints, except as documented, Denies confusion, Denies headache(s) Exam Vital signs: Salma Merchant. Assessment of coma and impaired consciousness. A practical scale. Lancet 1974; 2:81-4. Narrative: Lungs are clear to auscultation bilaterally Cardiovascular regular rate rhythm no murmurs Abdomen soft nontender nondistended Extremities no edema PN: Objective Data - Labs CBC & Chem 7: 12/25/19 05:02 12/25/19 05:02 Labs: Laboratory Results - last 24 hr 12/17/19 12/24/19 12/25/19 23:19 17:55 05:02 WBC 6.0 RBC 2.39 L Hgb 7.3 L Hct 22.1 L MCV 92.5 MCH 30.5 MCHC 33.0 RDW 13.3 Plt Count 372 MPV 9.2 Sodium 131 L Potassium 4.0 Chloride 98 Carbon Dioxide 28 BUN 20 D Creatinine 3.60 H Estim Creat Clear Calc 22 Estimated GFR 17 L Glucose 138 H Calcium 7.8 L Phosphorus Albumin Serum Immunofixation see below 12/25/19 05:02 WBC RBC Hgb Hct MCV MCH MCHC RDW Plt Count MPV Sodium 130 L Potassium 3.7 Chloride 100 Carbon Dioxide 27 BUN 22 H Creatinine 3.90 H Estim Creat Clear Calc 20 Estimated GFR 16 L Glucose 106 Calcium 8.0 L Phosphorus 1.5 L Albumin 2.7 L Serum Immunofixation
[2019-12-25 14:58] VITALS: BP 131/74; PULSE 60; RESP 16; TEMP 37.2; O2SAT 96
[2019-12-25 22:14] VITALS: BP 128/78; PULSE 76; RESP 16; TEMP 36.4; O2SAT 95
[2019-12-26] VITALS (17 sets, daily range): BP systolic 118–141; BP diastolic 60–82; PULSE 69–77; RESP 16–18; TEMP 36.4–37.1; O2SAT 96
[2019-12-26 05:39] LABS: Hematocrit 22.9 % (42.0-52.0); Hemoglobin 7.5 g/dL (14.0-18.0); Mean Corpuscular HGB Conc 32.8 g/dl (32-36); Mean Corpuscular Volume 94.6 fl (80-100); Mean Platelet Volume 8.8 fl (7.4-10.4); Platelet Count Result 408 k/mm3 (150-375); Red Blood Count 2.42 M/mm3 (4.6-6.20); Red Cell Distribution Width 13.6 % (11.5-14.5); White Blood Count 6.3 K/mm3 (4.5-10.0)
[2019-12-26 05:54] LABS: Albumin Level 2.9 g/dL (3.5-5.1); Blood Urea Nitrogen 23 mg/dL (9-20); Calcium 8.2 mg/dL (8.4-10.2); Carbon Dioxide 25 mmol/L (22-30); Chloride 105 mmol/L (98-107); Estimated CRCL calculation 18 ml/min; Estimated Glomerular Filt Rate 14; Glucose 96 mg/dL (75-110); Phosphorus 1.7 mg/dL (2.5-4.5); Potassium 3.8 mmol/L (3.4-5.0); Sodium 135 mmol/L (137-145)
--- NOTE | 2019-12-26 07:13 | WPDGIPROGNO ---
Progress Note: A&P Additional Plan Patient alert and comfortable this morning. Appears oriented x3. Offers no specific complaints. No bleeding reported. He denies abdominal pain. Physical exam reveals him to be alert. Vital signs stable. HEENT exam is anicteric. Lungs are clear. Heart without murmur. Abdomen bowel sounds are present soft nontender with no organomegaly. Labs reveal hemoglobin 7.5, hematocrit 22.9, MCV 94. BUN 23, creatinine 4.4 per impression 1. Erosive esophagitis and duodenal ulcer. Clinically stable at this time plan to continue proton pump inhibitor. Avoid nonsteroidal anti-inflammatory agents. 2. Acute renal failure. Patient felt to have ATN. Now on dialysis with improving creatinine. Disposition per renal service at this point. 3. Alcohol abuse by history. Alcohol avoidance is strongly encouraged. Subjective Date/time seen: 12/26/19 07:13 Objective Data Vital Signs Vital Signs: Vital Signs - 24 hr 12/25/19 14:58 12/25/19 22:14 12/26/19 06:37 Temperature 37.2 C 36.4 C 36.4 C Pulse Rate 60 76 77 Respiratory Rate 16 16 18 Blood Pressure 131/74 128/78 127/82 Pulse Oximetry 96 95 96 Intake/Output Intake/Output: Intake & Output 12/23/19 12/24/19 12/25/19 12/26/19 23:59 23:59 23:59 23:59 Intake Total 2425 2661 1820 250 Output Total 3300 3500 3150 1800 Balance -875 -839 -1330 -7530 Meds/Results Medications: Active Medications Generic Name Dose Route Start Last Admin Trade Name Juanq PRN Reason Stop Dose Admin Acetaminophen 650 mg 12/22/19 16:53 12/23/19 05:38 Tylenol Tablet PO 650 mg Q6H PRN Administration Mild Pain (1-3) or Fever Epoetin Damion 20,000 units 12/26/19 11:00 Epogen IV PUSH 12/26/19 11:01 ONCE ONE Folic Acid 1 mg 12/21/19 09:00 12/25/19 08:50 Folic Acid PO 1 mg DAILY DONNA Administration Albumin Human 50 mls @ 999 mls/hr 12/22/19 06:54 Albutein IVPB 01/21/20 06:55 Q10M PRN HYPOTENSION Ceftriaxone Sodium/Dextrose 1 gm in 50 mls @ 100 mls/hr 12/22/19 18:00 12/25/19 17:42 Rocephin 1 Gm/D5w 50 Ml IVPB Infused Q24H DONNA Infusion Doxycycline Hyclate 100 mg/ 100 mls @ 100 mls/hr 12/22/19 21:00 12/25/19 22:39 Dextrose IVPB Infused Q12HR DONNA Infusion Lorazepam 1 mg 12/17/19 22:57 12/21/19 09:24 Ativan Inj IV PUSH 1 mg Q4H PRN Administration Withdrawal Magnesium Oxide 400 mg 12/23/19 15:30 12/25/19 08:51 Mag-Ox PO 400 mg QAM DONNA Administration Naloxone HCl 0.1 mg 12/18/19 13:03 Narcan IV PUSH Q2M PRN Opiate Reversal Ondansetron HCl 4 mg 12/17/19 21:05 Zofran Inj IV PUSH Q4H PRN Nausea Pantoprazole Sodium 40 mg 12/19/19 10:35 12/25/19 21:39 Protonix Iv IV PUSH 40 mg Q12HR DONNA Administration Potassium Chloride 40 meq 12/24/19 01:04 12/25/19 08:50 Kcl Tablet PO 40 meq DAILY@0800 PRN Administration Hypokalemia - K+ < 3.0 Thiamine HCl 100 mg 12/21/19 09:00 12/25/19 08:51 Vitamin B-1 PO 100 mg QAM DONNA Administration Radiology Results: ITS Impressions Head CT 12/17/19 19:53 IMPRESSION: 1. No acute intracranial abnormality. 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 3: Chronic age-related findings. Cervical Spine CT 12/17/19 19:57 IMPRESSION: 1. No acute fracture. 2: Moderate-severe cervical spondylosis. Miscellaneous CT Procedure 12/17/19 20:01 IMPRESSION: 1. No acute abdominal abnormality. ADDENDUM: 12/17/192033 Impression: 1: No acute abnormality of the lumbar spine. Central Venous Line 12/18/19 12:07 IMPRESSION: 1. Central venous catheter tip overlying superior cavoatrial junction. Abdomen Ultrasound 12/18/19 15:32 IMPRESSION: Pancreas is obscured; otherwise unremarkable examination Renal Scan Nuclear Medicine 12/18/19 17:30 IMPRESSION: 1. Symmetric kidney function. 2. Delayed bilateral
[2019-12-26] MEDS: PANTOPRAZOLE SODIUM IV 40 MG VIAL IV PUSH (07:57)
[2019-12-26] MEDS: FOLIC ACID 1 MG TABLET PO (07:58)
[2019-12-26] MEDS: THIAMINE HCL 100 MG TABLET PO (07:58)
[2019-12-26] MEDS: MAGNESIUM OXIDE 400 MG TABLET PO (07:58)
--- NOTE | 2019-12-26 10:17 | PM.IMPN ---
Subjective Date/time seen: 12/26/19 10:17 Objective Data Vital Signs Vital Signs: Vital Signs - 24 hr 12/25/19 14:58 12/25/19 22:14 12/26/19 06:37 Temperature 99.0 F 97.6 F 97.6 F Pulse Rate 60 76 77 Respiratory Rate 16 16 18 Blood Pressure 131/74 128/78 127/82 Pulse Oximetry 96 95 96 Intake/Output Intake/Output: Intake & Output 12/23/19 12/24/19 12/25/19 12/26/19 23:59 23:59 23:59 23:59 Intake Total 2425 2661 1820 490 Output Total 3300 3500 3150 1800 Balance -5 -839 -1330 -1310 Meds/Results Medications: Active Medications Generic Name Dose Route Start Last Admin Trade Name Freq PRN Reason Stop Dose Admin Acetaminophen 650 mg 12/22/19 16:53 12/23/19 05:38 Tylenol Tablet PO 650 mg Q6H PRN Administration Mild Pain (1-3) or Fever Epoetin Damion 20,000 units 12/26/19 11:00 Epogen IV PUSH 12/26/19 11:01 ONCE ONE Folic Acid 1 mg 12/21/19 09:00 12/26/19 07:58 Folic Acid PO 1 mg DAILY DONNA Administration Albumin Human 50 mls @ 999 mls/hr 12/22/19 06:54 Albutein IVPB 01/21/20 06:55 Q10M PRN HYPOTENSION Ceftriaxone Sodium/Dextrose 1 gm in 50 mls @ 100 mls/hr 12/22/19 18:00 12/25/19 17:42 Rocephin 1 Gm/D5w 50 Ml IVPB Infused Q24H DONNA Infusion Doxycycline Hyclate 100 mg/ 100 mls @ 100 mls/hr 12/22/19 21:00 12/26/19 07:58 Dextrose IVPB 100 mls/hr Q12HR DONNA Administration Lorazepam 1 mg 12/17/19 22:57 12/21/19 09:24 Ativan Inj IV PUSH 1 mg Q4H PRN Administration Withdrawal Magnesium Oxide 400 mg 12/23/19 15:30 12/26/19 07:58 Mag-Ox PO 400 mg QAM DONNA Administration Naloxone HCl 0.1 mg 12/18/19 13:03 Narcan IV PUSH Q2M PRN Opiate Reversal Ondansetron HCl 4 mg 12/17/19 21:05 Zofran Inj IV PUSH Q4H PRN Nausea Pantoprazole Sodium 40 mg 12/19/19 10:35 12/26/19 07:57 Protonix Iv IV PUSH 40 mg Q12HR DONNA Administration Potassium Chloride 40 meq 12/24/19 01:04 12/25/19 08:50 Kcl Tablet PO 40 meq DAILY@0800 PRN Administration Hypokalemia - K+ < 3.0 Thiamine HCl 100 mg 12/21/19 09:00 12/26/19 07:58 Vitamin B-1 PO 100 mg QAM DONNA Administration Radiology Results: ITS Impressions Head CT 12/17/19 19:53 IMPRESSION: 1. No acute intracranial abnormality. 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 3: Chronic age-related findings. Cervical Spine CT 12/17/19 19:57 IMPRESSION: 1. No acute fracture. 2: Moderate-severe cervical spondylosis. Miscellaneous CT Procedure 12/17/19 20:01 IMPRESSION: 1. No acute abdominal abnormality. ADDENDUM: 12/17/192033 Impression: 1: No acute abnormality of the lumbar spine. Central Venous Line 12/18/19 12:07 IMPRESSION: 1. Central venous catheter tip overlying superior cavoatrial junction. Abdomen Ultrasound 12/18/19 15:32 IMPRESSION: Pancreas is obscured; otherwise unremarkable examination Renal Scan Nuclear Medicine 12/18/19 17:30 IMPRESSION: 1. Symmetric kidney function. 2. Delayed bilateral renal clearance, left greater than right, consistent with medical history of acute renal insufficiency. Abdomen X-Ray 12/19/19 07:59 IMPRESSION: 1. Nasogastric tube tip in the stomach. 2. Mildly dilated small bowel in right abdomen, likely adynamic ileus. Chest X-Ray 12/22/19 19:40 IMPRESSION: Resolution of previously seen bilateral edema and/or pneumonia. Renal Biopsy Ultrasound 12/23/19 11:13 IMPRESSION: 1. Ultrasound-guided random left kidney core needle biopsy. Labs Labs: Laboratory Results - last 24 hr 12/26/19 12/26/19 05:22 05:22 WBC 6.3 RBC 2.42 L Hgb 7.5 L Hct 22.9 L MCV 94.6 MCH 31.0 MCHC 32.8 RDW 13.6 Plt Count 408 H MPV 8.8 Sodium 135 L Potassium 3.8 Chloride 105 Carbon Dioxide 25 BUN 23 H Creatinine 4.40 H Estim Creat Clear Calc 18 E
--- NOTE | 2019-12-26 10:51 | P.DS_ITS ---
DS: Diagnosis Admitting Diagnosis Admitting Diagnosis: Acute kidney failure, unspecified Discharge Diagnosis (1) Acute kidney injury: Code(s): N17.9 - Acute kidney failure, unspecified Status: Acute Assessment and Plan: Patient admitted with acute kidney injury. Dialysis catheter placed. Biopsy revealed ATN. Creatinine improved from over 14-4.4 by day of discharge. Tolerating dialysis well. Was to continue to follow-up at dialysis Saturdays as outpatient and hopes to wean from dialysis as his kidneys continue to improve. (2) Hypokalemia: Code(s): E87.6 - Hypokalemia Status: Acute Assessment and Plan: Resolved with potassium replacement (3) Gastrointestinal bleed: Qualifiers: GI bleed type/associated pathology: unspecified gastrointestinal hemorrhage type Qualified Code(s): K92.2 - Gastrointestinal hemorrhage, unspecified Code(s): K92.2 - Gastrointestinal hemorrhage, unspecified Status: Acute Assessment and Plan: GI consulted and appreciate input. Patient with large melanotic stool on 12/18/2019 with subsequent further decrease in hemoglobin. Patient now S/P EGD by Dr. Nelson on 12/19/2019 with distal esophagitis and duodenal ulcers seen. Now on renal dialysis diet. Continue Protonix. Follow-up as outpatient. (4) Anemia: Qualifiers: Anemia type: other cause Other causes of anemia: acute posthemorrhagic Qualified Code(s): D62 - Acute posthemorrhagic anemia Code(s): D64.9 - Anemia, unspecified Status: Acute Assessment and Plan: Result of GI bleed as noted but may also have component of renal disease. Transfused total of 3 units PRBC on 12/18/2019. Hemoglobin decreased again to 6.6 on 12/20/2019 transfused 1 unit PRBC. Hgb 7.5 on 12/20 and 7.5 at discharge. Will continue to monitor and transfuse as needed. (5) Duodenal ulcer: Code(s): K26.9 - Duodenal ulcer, unspecified as acute or chronic, without hemorrhage or perforation Status: Acute Assessment and Plan: Also as noted on EGD. Continue Protonix (6) Esophagitis: Code(s): K20.9 - Esophagitis, unspecified Status: Acute Assessment and Plan: As noted on EGD. Continue Protonix. (7) Acute hyponatremia: Code(s): E87.1 - Hypo-osmolality and hyponatremia Status: Acute Assessment and Plan: Sodium now up to 124 on 12/20 and 135 today. Remains on IV sodium bicarb. Continue to follow. Nephrology following as noted above. (8) Thrombocytopenia: Code(s): D69.6 - Thrombocytopenia, unspecified Status: Acute Assessment and Plan: Likely secondary to chronic alcoholism. Platelets up to 408k today. Continue to monitor. (9) HTN (hypertension): Qualifiers: Hypertension type: essential hypertension Qualified Code(s): I10 - Essential (primary) hypertension Code(s): I10 - Essential (primary) hypertension Status: Acute Assessment and Plan: Blood pressure reviewed on 12/21/2019 with variability noted but acceptable. Not on medication. Follow-up as outpatient (10) Metabolic acidosis: Code(s): E87.2 - Acidosis Status: Resolved Assessment and Plan: Secondary to acute renal failure. Resolved. Remains on IV bicarb. (11) Alcohol abuse: Code(s): F10.10 - Alcohol abuse, uncomplicated Status: Acute Assessment and Plan: CIWA-AR protocol during hospitalization. No sign of withdrawal this time. (12) HLD (hyperlipidemia): Qualifiers: Hyperl
--- NOTE | 2019-12-26 11:45 | P.PNNP_ITS ---
Progress Note: A&P Assessment and Plan (1) Acute kidney injury: Code(s): N17.9 - Acute kidney failure, unspecified Status: Acute Assessment and Plan: * due to biopsy proven acute tubular necrosis * theoretically, kidney function should recover but it make time (weeks versus months) - however, there is still a possibility the he may NOT recover, particularly given the severity of the acute insult * still making good urine which is favorable sign * will need to continue dialysis on discharge until definitive signs of renal recovery * HD today (will be on outpatient schedule of T/T/S) (2) Gastrointestinal bleed: Qualifiers: GI bleed type/associated pathology: unspecified gastrointestinal hemorrhage type Qualified Code(s): K92.2 - Gastrointestinal hemorrhage, unspecified Code(s): K92.2 - Gastrointestinal hemorrhage, unspecified Status: Acute Assessment and Plan: * H/H stable at this time * s/p EGD with findings of esophagitis and duodenal ulcer * GI following * component of iron deficiency present as well (based on anemia studies) * Epogen and venofer with dialysis (3) Acute hyponatremia: Code(s): E87.1 - Hypo-osmolality and hyponatremia Status: Acute Assessment and Plan: * presumably due to renal failure and excessive free water intake prior to admission * slow correction noted with dialysis * follow trend of sodium (4) HTN (hypertension): Qualifiers: Hypertension type: essential hypertension Qualified Code(s): I10 - Essential (primary) hypertension Code(s): I10 - Essential (primary) hypertension Status: Acute Assessment and Plan: * well controlled at this time * follow trend of hemodynamics Not opposed to discharge from renal perspective after dialysis today -- Dr. Schuler will follow him for dialysis management and monitoring for renal recovery. Subjective Date/time seen: 12/26/19 11:45 Tolerating dialysis at the time of my visit (seen on HD at ~ 11:30AM); tolerating treatment reasonably well; no apparent distress voiced at this time; noted plans for discharge post-HD. Exam Narrative: Exam Narrative: General: WD/WN male in NAD Heart: normal S1 and S2; no rub Lungs: clear to auscultation Abdomen: soft, nontender, nondistended, positive bowel sounds Extremities: no cyanosis or clubbing; no edema Skin: warm and intact Objective Data Vital Signs Vital Signs: Vital Signs Temp Pulse Resp BP Pulse Ox 12/26/19 11:30 73 128/72 12/26/19 11:15 73 136/77 12/26/19 11:00 75 127/74 12/26/19 10:45 72 134/72 12/26/19 10:30 75 141/76 H 12/26/19 10:17 76 139/82 12/26/19 10:05 37.1 C 77 16 138/82 12/26/19 06:37 36.4 C 77 18 127/82 96 12/25/19 22:14 36.4 C 76 16 128/78 95 12/25/19 14:58 37.2 C 60 16 131/74 96 Intake/Output Intake/Output: Intake & Output 12/23/19 12/24/19 12/25/19 12/26/19 23:59 23:59 23:59 23:59 Intake Total 2425 2661 1820 490 Output Total 3300 3500 3150 1800 Balance -086 -979 -1336 -1310 Meds/Results Medications: Active Medications Generic Name Dose Route Start Last Admin Trade Name Ant PRN Reason Stop Dose Admin Acetaminophen 650 mg 12/22/19 16:53 12/08
--- NOTE | 2019-12-26 11:45 | PM.PNNEP ---
Progress Note: A&P Assessment and Plan (1) Acute kidney injury: Code(s): N17.9 - Acute kidney failure, unspecified Status: Acute Assessment and Plan: due to biopsy proven acute tubular necrosis theoretically, kidney function should recover but it make time (weeks versus months) - however, there is still a possibility the he may NOT recover, particularly given the severity of the acute insult still making good urine which is favorable sign will need to continue dialysis on discharge until definitive signs of renal recovery HD today (will be on outpatient schedule of T/T/S) (2) Gastrointestinal bleed: Qualifiers: GI bleed type/associated pathology: unspecified gastrointestinal hemorrhage type Qualified Code(s): K92.2 - Gastrointestinal hemorrhage, unspecified Code(s): K92.2 - Gastrointestinal hemorrhage, unspecified Status: Acute Assessment and Plan: H/H stable at this time s/p EGD with findings of esophagitis and duodenal ulcer GI following component of iron deficiency present as well (based on anemia studies) Epogen and venofer with dialysis (3) Acute hyponatremia: Code(s): E87.1 - Hypo-osmolality and hyponatremia Status: Acute Assessment and Plan: presumably due to renal failure and excessive free water intake prior to admission slow correction noted with dialysis follow trend of sodium (4) HTN (hypertension): Qualifiers: Hypertension type: essential hypertension Qualified Code(s): I10 - Essential (primary) hypertension Code(s): I10 - Essential (primary) hypertension Status: Acute Assessment and Plan: well controlled at this time follow trend of hemodynamics Not opposed to discharge from renal perspective after dialysis today -- Dr. Schuler will follow him for dialysis management and monitoring for renal recovery. Subjective Date/time seen: 12/26/19 11:45 Tolerating dialysis at the time of my visit (seen on HD at ~ 11:30AM); tolerating treatment reasonably well; no apparent distress voiced at this time; noted plans for discharge post-HD. Exam Narrative: Exam Narrative: General: WD/WN male in NAD Heart: normal S1 and S2; no rub Lungs: clear to auscultation Abdomen: soft, nontender, nondistended, positive bowel sounds Extremities: no cyanosis or clubbing; no edema Skin: warm and intact Objective Data Vital Signs Vital Signs: Vital Signs Temp Pulse Resp BP Pulse Ox 04/18/20 11:30 73 128/72 04/18/20 11:15 73 136/77 12/26/19 11:00 75 127/74 12/26/19 10:45 72 134/72 12/26/19 10:30 75 141/76 H 12/26/19 10:17 76 139/82 12/26/19 10:05 37.1 C 77 16 138/82 12/26/19 06:37 36.4 C 77 18 127/82 96 12/25/19 22:14 36.4 C 76 16 128/78 95 12/25/19 14:58 37.2 C 60 16 131/74 96 Intake/Output Intake/Output: Intake & Output 12/23/19 12/24/19 12/25/19 12/26/19 23:59 23:59 23:59 23:59 Intake Total 2425 2661 1820 490 Output Total 3300 3500 3150 1800 Balance -362 -759 -6600 -1310 Meds/Results Medications: Active Medications Generic Name Dose Route Start Last Admin Trade Name nAt PRN Reason Stop Dose Admin Acetaminophen 650 mg 12/22/19 16:53 12/23/19 05:38 Tylenol Tablet PO 650 mg Q6H PRN Administration Mild Pain (1-3) or Fever Folic Acid 1 mg 12/21/19 09:00 12/26/19 07:58 Folic Acid PO 1 mg DAILY DONNA Administration Albumin Human 50 mls @ 999 mls/hr 12/22/19 06:54 Albutein IVPB 01/21/20 06:55 Q10M PRN HYPOTENSION Ceftriaxone Sodium/Dextrose 1 gm in 50 mls @ 100 mls/hr 12/22/19 18:00 12/25/19 17:42 Rocephin 1 Gm/D5w 50 Ml IVPB Infused Q24H DONNA Infusion Doxycycline Hyclate 100 mg/ 100 mls @ 100 mls/hr 12/22/19 21:00 12/26/19 07:58 Dextrose IVPB 100 mls/hr Q12HR DONNA Administration Lorazepam 1 mg 12/17/19 22:57 12/21/19 09:24 Ativan Inj IV PUSH 1
[2019-12-26] MEDS: EPOETIN ALFA 10,000 UNITS/ML VIAL 20000 UNITS IV PUSH (13:12)
--- NOTE | 2020-01-05 10:33 | PM.CNGS ---
Assessment and Plan Assessment and plan (1) Renal failure: Code(s): N19 - Unspecified kidney failure Status: Chronic (2) Encounter for care related to vascular access port: Code(s): Z45.2 - Encounter for adjustment and management of vascular access device Status: Acute Assessment and Plan: No consult needed. Patient seen for placement central venous access catheter. History of Present Illness Consult details Consult date: 01/05/20 [facility] Past Medical History Medical History HLD (hyperlipidemia) HTN (hypertension) Neuropathy Surgical History Surgical History No significant past surgical history Family History Family History Sibling Acute myocardial infarction Mother Acute myocardial infarction Hypertension Father Acute myocardial infarction Coronary artery disease Social History Social History Smoking packs per day: 1.5 Smoking cigarettes per day: 30.0 Years smoked: 15 Smoking pack-years: 22.50 Smoking status: Former smoker Tobacco type: cigarettes Alcohol intake: current Drinks per week: 14 Substance use: never Substance use type: does not use Gender identity (if verbalized by the patient): Male Spiritual care concerns: No Agree to blood products: Yes Meds Home Medications and Allergies Home Medications Medication Instructions Recorded Confirmed Type acetaminophen [Tylenol] 650 mg PO Q4-6H PRN 12/17/19 12/18/19 History aspirin 81 mg PO DAILY 12/17/19 12/17/19 History rosuvastatin 40 mg PO HS 12/17/19 12/17/19 History doxycycline hyclate 100 mg PO DAILY #14 cap 12/25/19 Rx folic acid 1 mg PO DAILY #30 tablet 12/25/19 Rx magnesium oxide 400 mg PO QAM #30 tablet 12/25/19 Rx pantoprazole [Protonix] 40 mg PO BID 56 Days #112 tablet 12/25/19 Rx thiamine HCl (vitamin B1) [Vitamin 100 mg PO QAM #30 tablet 12/25/19 Rx B-1] Allergies Allergy/AdvReac Type Severity Reaction Status Date / Time No Known Allergies Allergy Verified 12/17/19 23:49 Results Labs Result diagrams: 12/26/19 05:22 12/26/19 05:22 Labs: All other labs normal. Quality VTE Prophylaxis VTE prophylaxis: mechanical ordered
--- NOTE | 2020-01-06 11:40 | PM.IMPN ---
Progress Note: A&P Assessment and Plan (1) Acute kidney injury: Code(s): N17.9 - Acute kidney failure, unspecified Status: Acute Assessment and Plan: Patient admitted with acute kidney injury. Dialysis catheter placed. Biopsy revealed ATN. Creatinine improved from over 14-4.4 by day of discharge. Tolerating dialysis well. Was to continue to follow-up at dialysis Saturdays as outpatient and hopes to wean from dialysis as his kidneys continue to improve. Patient admitted with acute kidney injury. Dialysis catheter placed. Biopsy revealed ATN. Creatinine improved from over 14-4.4 by day of discharge. Tolerating dialysis well. Was to continue to follow-up at dialysis Saturdays as outpatient and hopes to wean from dialysis as his kidneys continue to improve. patient was clinically stable and plan was to discharge today however due to logistics patient was discharge next day (2) Hypokalemia: Code(s): E87.6 - Hypokalemia Status: Acute Assessment and Plan: Resolved with potassium replacement (3) Gastrointestinal bleed: Qualifiers: GI bleed type/associated pathology: unspecified gastrointestinal hemorrhage type Qualified Code(s): K92.2 - Gastrointestinal hemorrhage, unspecified Code(s): K92.2 - Gastrointestinal hemorrhage, unspecified Status: Acute Assessment and Plan: GI consulted and appreciate input. Patient with large melanotic stool on 12/18/2019 with subsequent further decrease in hemoglobin. Patient now S/P EGD by Dr. Nelson on 12/19/2019 with distal esophagitis and duodenal ulcers seen. Now on renal dialysis diet. Continue Protonix. Follow-up as outpatient. (4) Anemia: Qualifiers: Anemia type: other cause Other causes of anemia: acute posthemorrhagic Qualified Code(s): D62 - Acute posthemorrhagic anemia Code(s): D64.9 - Anemia, unspecified Status: Acute Assessment and Plan: Result of GI bleed as noted but may also have component of renal disease. Transfused total of 3 units PRBC on 12/18/2019. Hemoglobin decreased again to 6.6 on 12/20/2019 transfused 1 unit PRBC. Hgb 7.5 on 12/20 and 7.5 at discharge. Will continue to monitor and transfuse as needed. (5) Duodenal ulcer: Code(s): K26.9 - Duodenal ulcer, unspecified as acute or chronic, without hemorrhage or perforation Status: Acute Assessment and Plan: Also as noted on EGD. Continue Protonix (6) Esophagitis: Code(s): K20.9 - Esophagitis, unspecified Status: Acute Assessment and Plan: As noted on EGD. Continue Protonix. (7) Acute hyponatremia: Code(s): E87.1 - Hypo-osmolality and hyponatremia Status: Acute Assessment and Plan: Sodium now up to 124 on 12/20 and 135 today. Remains on IV sodium bicarb. Continue to follow. Nephrology following as noted above. (8) Thrombocytopenia: Code(s): D69.6 - Thrombocytopenia, unspecified Status: Acute Assessment and Plan: Likely secondary to chronic alcoholism. Platelets up to 408k today. Continue to monitor. (9) HTN (hypertension): Qualifiers: Hypertension type: essential hypertension Qualified Code(s): I10 - Essential (primary) hypertension Code(s): I10 - Essential (primary) hypertension Status: Acute Assessment and Plan: Blood pressure reviewed on 12/21/2019 with variability noted but acceptable. Not on medication. Follow-up as outpatient (10) Metabolic acidosis: Code(s): E87.2 - Acidosis Status: Resolved Assessment and Plan: Secondary to acute renal failure. Resolved. Remains on IV bicarb. (11) Alcohol abuse: Code(s): F10.10 - Alcohol abuse, uncomplicated Status: Acute Assessment and Plan: CIWA-AR protocol during hospitalization. No sign of withdrawal this time. (12) HLD (hyperlipidemia): Qualifiers: Hyperlipid
--- NOTE | 2020-01-15 14:37 | P.PNIM_ITS ---
Progress Note: A&P Assessment and Plan (1) Acute kidney injury: Code(s): N17.9 - Acute kidney failure, unspecified Status: Acute Assessment and Plan: Patient admitted with acute kidney injury. Dialysis catheter placed. Biopsy revealed ATN. Creatinine improved from over 14-4.4 by day of discharge. Tolerating dialysis well. Was to continue to follow-up at dialysis Saturdays as outpatient and hopes to wean from dialysis as his kidneys continue to improve. Patient admitted with acute kidney injury. Dialysis catheter placed. Biopsy revealed ATN. Creatinine improved from over 14-4.4 by day of discharge. Tolerating dialysis well. Was to continue to follow-up at dialysis Saturdays as outpatient and hopes to wean from dialysis as his kidneys continue to improve. patient was clinically stable and plan was to discharge today however due to logistics patient was discharge next day (2) Hypokalemia: Code(s): E87.6 - Hypokalemia Status: Acute Assessment and Plan: Resolved with potassium replacement (3) Gastrointestinal bleed: Qualifiers: GI bleed type/associated pathology: unspecified gastrointestinal hemorrhage type Qualified Code(s): K92.2 - Gastrointestinal hemorrhage, unspecified Code(s): K92.2 - Gastrointestinal hemorrhage, unspecified Status: Acute Assessment and Plan: GI consulted and appreciate input. Patient with large melanotic stool on 12/18/2019 with subsequent further decrease in hemoglobin. Patient now S/P EGD by Dr. Nelson on 12/19/2019 with distal esophagitis and duodenal ulcers seen. Now on renal dialysis diet. Continue Protonix. Follow-up as outpatient. (4) Anemia: Qualifiers: Anemia type: other cause Other causes of anemia: acute posthemorrhagic Qualified Code(s): D62 - Acute posthemorrhagic anemia Code(s): D64.9 - Anemia, unspecified Status: Acute Assessment and Plan: Result of GI bleed as noted but may also have component of renal disease. Transfused total of 3 units PRBC on 12/18/2019. Hemoglobin decreased again to 6.6 on 12/20/2019 transfused 1 unit PRBC. Hgb 7.5 on 12/20 and 7.5 at discharge. Will continue to monitor and transfuse as needed. (5) Duodenal ulcer: Code(s): K26.9 - Duodenal ulcer, unspecified as acute or chronic, without hemorrhage or perforation Status: Acute Assessment and Plan: Also as noted on EGD. Continue Protonix (6) Esophagitis: Code(s): K20.9 - Esophagitis, unspecified Status: Acute Assessment and Plan: As noted on EGD. Continue Protonix. (7) Acute hyponatremia: Code(s): E87.1 - Hypo-osmolality and hyponatremia Status: Acute Assessment and Plan: Sodium now up to 124 on 12/20 and 135 today. Remains on IV sodium bicarb. Continue to follow. Nephrology following as noted above. (8) Thrombocytopenia: Code(s): D69.6 - Thrombocytopenia, unspecified Status: Acute Assessment and Plan: Likely secondary to chronic alcoholism. Platelets up to 408k today. Continue to monitor. (9) HTN (hypertension): Qualifiers: Hypertension type: essential hypertension Qualified Code(s): I10 - Essential (primary) hypertension Code(s): I10 - Essential (primary) hypertension Status: Acute Assessment and Plan: Blood pressure reviewed on 12/21/2019 with variability noted but acceptable. Not on medication. Follow-up as outpatient (10) Metabolic acidosis: Code(s): E87.2 - Acidosis Status: Resolved Assessment an
== END 2019-12-26 14:17 | disposition home or self-care (01) | DRG 673 ==
LOC: ANHED 21:22 → ANHIMU 21:52 → ANHICU 12-18 16:50 → ANHIMU 12-20 21:50 → ANH3MED 12-23 11:10 → ANHICU 12-28 13:10 → ANHIMU 12-28 13:10
PROVIDERS: Emergency Medicine Emergency Medical Services; Family Medicine; Hospitalist; Internal Medicine; Internal Medicine Gastroenterology; Internal Medicine Hematology & Oncology; Internal Medicine Nephrology; Surgery; Admitting Provider Family Medicine; Emergency Provider Emergency Medicine; PCP Family Medicine Sports Medicine; Visit Provider Internal Medicine
PROC: 0JH63XZ Insertion of Tunneled Vascular Access Device into Chest Subcutaneous Tissue and Fascia, Percutaneous Approach (ICD-10-PCS; CPT 36908; principal; 2019-12-18 10:30)
PROC: 0DJ08ZZ Inspection of Upper Intestinal Tract, Via Natural or Artificial Opening Endoscopic (ICD-10-PCS; CPT 43235; principal; 2019-12-19 09:30)
DX: N17.0 Acute kidney failure with tubular necrosis (principal); K22.11 Ulcer of esophagus with bleeding; K26.0 Acute duodenal ulcer with hemorrhage; K26.4 Chronic or unspecified duodenal ulcer with hemorrhage; E87.1 Hypo-osmolality and hyponatremia; E87.2 Acidosis; G93.49 Other encephalopathy; D62 Acute posthemorrhagic anemia; K22.10 Ulcer of esophagus without bleeding; Z20.828 Contact with and (suspected) exposure to other viral communicable diseases; I10 Essential (primary) hypertension; E78.5 Hyperlipidemia, unspecified; F17.210 Nicotine dependence, cigarettes, uncomplicated; D69.6 Thrombocytopenia, unspecified; G60.9 Hereditary and idiopathic neuropathy, unspecified; E86.1 Hypovolemia; N18.9 Chronic kidney disease, unspecified; E87.6 Hypokalemia; D63.1 Anemia in chronic kidney disease; F10.20 Alcohol dependence, uncomplicated
CPT/HCPCS: 36415; 36430; 36600; 50200; 70450; 71045; 71046; 72125; 72133; 74176; 76700; 76942; 77001; 78707; 80048; 80053; 80069; 80307; 81001; 82040; 82140; 82164; 82375; 82533; 82550; 82570; 82607; 82728; 82746; 82805; 83010; 83050; 83540; 83550; 83605; 83615; 83690; 83735; 83883; 83930; 83935; 84100; 84156; 84238; 84295; 84300; 84443; 85014; 85018; 85025; 85027; 85046; 85397; 85610; 85652; 85730; 85999; 86021; 86038; 86160; 86162; 86334; 86335; 86704; 86706; 86707; 86803; 86850; 86880; 86900; 86901; 86923; 87040; 87045; 87046; 87081; 87340; 87427; 87635; 88184; 88300; 88329; 93005; 96365; 96366; 96375; 97110; 97116; 97161; 97165; 97535; 99285; A9270; A9562; C1750; C9113; G0257; J0690; J0696; J1644; J1756; J1940; J2060; J2250; J2354; J2405; J2597; J2704; J3010; J3411; J3475; J7030; J7040; J7050; J7060; J7070; P9016; Q4081; U0003

== ENCOUNTER 2020-01-29 10:15 | Outpatient (CLI) | payer OTHER, SELFPAY ==
[2020-01-29 10:38] LABS: Blood Urea Nitrogen 16 mg/dL (8-26); Carbon Dioxide 21 mmol/L (22-30); Chloride 108 mmol/L (98-109); Estimated Glomerular Filt Rate > 60; Glucose 104 mg/dL (70-105); Potassium 3.7 mmol/L (3.5-4.9); Sodium 141 mmol/L (138-146)
[2020-01-29 10:38] LABS: Basophils Percent Auto 0.3 % (0.2-1.2); Eosinophils Absolute Auto 0.1 K/mm3 (0-0.3); Eosinophils Percent Auto 3.1 % (0-4.4); Hematocrit 26.3 % (42.0-52.0); Hemoglobin 8.2 g/dL (14.0-18.0); Immature Granulocyte Absolute 0.01 K/mm3 (0.00-0.031); Immature Granulocyte Percent A 0.3 % (0-0.5); Lymphocytes Percent Auto 25.6 % (18.3-44.2); Mean Corpuscular HGB Conc 31.2 g/dl (32-36); Mean Corpuscular Hemoglobin 30.6 pg (26-34); Mean Corpuscular Volume 98.1 fl (80-100); Mean Platelet Volume 8.6 fl (7.4-10.4); Monocytes Absolute Auto 0.3 K/mm3 (0.1-0.6); Monocytes Percent Auto 7.4 % (2.6-8.5); Neutrophils Absolute Auto 2.2 K/mm3 (1.3-6.7); Neutrophils Percent Auto 63.3 % (45.5-73.1); Platelet Count Result 238 k/mm3 (150-375); Red Blood Count 2.68 M/mm3 (4.6-6.20); Red Cell Distribution Width 17.4 % (11.5-14.5); White Blood Count 3.5 K/mm3 (4.5-10.0)
[2020-01-29 13:06] LABS: Iron 92 ug/dL (49-181)
[2020-01-29 13:15] LABS: Percent Iron Saturation 29 % (20-50)
== END 2020-01-29 10:16 | disposition home or self-care (01) ==
LOC: ANHLAB 10:16
PROVIDERS: PCP Family Medicine Sports Medicine; Visit Provider Internal Medicine Hematology & Oncology
DX: D64.9 Anemia, unspecified (principal)
CPT/HCPCS: 36415; 80048; 82607; 82728; 83540; 83550; 85025

== ENCOUNTER 2020-02-23 00:31 | Outpatient (CLI) | payer OTHER, SELFPAY ==
[2020-02-23 18:12] LABS: SARS-CoV-2 RNA PCR Negative
== END 2020-02-23 00:32 | disposition home or self-care (01) ==
LOC: ANHCOVIDDT 00:31
PROVIDERS: PCP Family Medicine Sports Medicine; Visit Provider Surgery
DX: Z20.828 Contact with and (suspected) exposure to other viral communicable diseases (principal); Z01.812 Encounter for preprocedural laboratory examination
CPT/HCPCS: 87635; C9803; U0003

== ENCOUNTER 2020-02-25 02:18 | Day surgery (SDC) | payer OTHER, SELFPAY ==
[2020-02-18 09:20] VITALS: BMI 24.4
[2020-02-25] MEDS: LACTATED RINGERS 1,000 ML 30 ML IV CONT (09:20)
[2020-02-25 09:32] LABS: Hematocrit 30.7 % (42.0-52.0); Hemoglobin 10.1 g/dL (14.0-18.0)
[2020-02-25 09:33] LABS: Glucose Point of Care 100 (65-105)
[2020-02-25 09:37] VITALS: BP 123/68; PULSE 66; RESP 12; TEMP 36.8; O2SAT 100
--- NOTE | 2020-02-25 09:53 | WPDANESEPPF ---
Anes - Initial Pre Proc Eval Procedure: Operation Date: 02/25/20 11:00 Proposed Procedures p Removal Of Permacath - Kendra Gomez MD Date/Time: 02/25/20 09:53 Surgeon: Kendra Gomez MD Pre Op Diagnosis: Acute Kidney Injury Patient Data Age: 64 Gender: M Height: 1.88 m Weight: 85.8 kg Last Vital Signs Temp 36.8 C 02/25/20 09:37 Pulse 66 02/25/20 09:37 Resp 12 02/25/20 09:37 BP 123/68 02/25/20 09:37 Pulse Ox 100 02/25/20 09:37 Allergies Allergy/AdvReac Type Severity Reaction Status Date / Time No Known Allergies Allergy Verified 02/25/20 08:57 Home Medications Medication Instructions Recorded Confirmed Type aspirin 81 mg PO QPM 12/17/19 02/25/20 History rosuvastatin 40 mg PO HS 12/17/19 02/25/20 History pantoprazole [Protonix] 40 mg PO BID 56 Days #112 tablet 12/25/19 02/25/20 Rx folic acid-B notm-H-wthur-zinc 1 tablet PO DAILY 02/15/20 02/25/20 History ferrous sulfate 325 mg PO BID 02/18/20 02/25/20 History Laboratory Tests 02/25/20 02/25/20 09:23 09:29 Hgb 10.1 g/dL L g/dL (14.0-18.0) Hct 30.7 % L % (42.0-52.0) POC Capillary Glucose 100 mg/dl mg/dl (65-105) Patient hx anesthesia problems: none Family hx anesthesia problems: none PMFSH Past Medical History Medical History (Updated 02/25/20 @ 09:55 by Ismael Colon DO) Diabetes type 2, controlled History of alcohol abuse stopped drinking in december HLD (hyperlipidemia) HTN (hypertension) states since problems with kidneys in december he hasn't had HTN anymore Neuropathy Surgical History Surgical History No significant past surgical history Social History Social History Smoking packs per day: 1.5 Smoking cigarettes per day: 30.0 Years smoked: 15 Smoking pack-years: 22.50 Smoking status: Former smoker Tobacco type: cigarettes Smoking end date: 02/08/87 Alcohol intake: current Drinks per week: 14 Substance use: never Substance use type: does not use Gender identity (if verbalized by the patient): Male Spiritual care concerns: No Agree to blood products: Yes Anes - Eval Final PreProcedure Day of Procedure 02/25/20 09:53 Patient weight: normal Heart: regular rate and rhythm Lungs: clear to auscultation and normal air movement Airway: Mallampati scale class II Neurological: alert and oriented Last oral intake: >/= 8 hours ASA classification: III Emergent: no Anesthetic plan: proceed Anesthesia type and monitoring: general GIVS and standard monitoring Informed Consent: The patient's anesthetic plan and its attendant risks and benefits were discussed with the patient/family/POA. Questions were solicited and answers provided to the satisfaction of the patient/family/POA.
--- NOTE | 2020-02-25 10:36 | PM.IMHP ---
H&P: HPI History of Present Illness Chief complaint: Acute Kidney Injury Narrative: Saleem Reyes is a 64 year old male c multiple med issues that presented in early December c renal failure. Pt had RIJ TDC placed by Dr. Bobby on 12/17, please see full op note for details. Pt has done relatively well since that time and has recovered kidney fxn enough to be off HD. Pt last had HD in the middle of January. Pt recently saw his stone polisher hand and was given the ok to have catheter removed. Review of Systems Constitutional: Constitutional: Reports fatigue, Denies lethargy and Reports weakness Eyes: Eyes: Reports no additional eye complaints and Denies change in vision ENT: Reports Normal hearing present, Denies headache(s), Denies hearing loss and Denies sore throat Cardiovascular: Cardiovascular: Denies chest pain, Denies palpitations and Denies dyspnea Respiratory: Respiratory: Denies cough and Denies dyspnea Gastrointestinal: Gastrointestinal: Denies abdominal pain, Denies change in stool character, Denies constipation, Denies diarrhea, Denies nausea and Denies vomiting Genitourinary: Genitourinary: Denies dysuria, Denies urinary frequency and Denies urinary urgency Musculoskeletal: Musculoskeletal: Reports no additional musculoskeletal complaints Integumentary/Breasts: Skin/Breast: Denies pruritus, Denies lesions and Denies wounds Neurologic: Denies confusion and Denies headache(s) Psychiatric: Psychiatric: Reports no additional psychiatric complaints and Denies confusion Endocrine: Endocrine: Reports no additional endocrine complaints, Denies fatigue and Denies palpitations Hematologic/Lymphatic: Hematologic/Lymphatic: Reports no additional hematologic/lymphatic complaints Allergic/Immunologic: Allergic/Immunologic: Reports no additional allergic/immunologic complaints COUNTS INCLUDE 234 BEDS AT THE [facility] Past Medical History Medical History Diabetes type 2, controlled History of alcohol abuse stopped drinking in december HLD (hyperlipidemia) HTN (hypertension) states since problems with kidneys in december he hasn't had HTN anymore Neuropathy Surgical History Surgical History No significant past surgical history Family History Family History Sibling Acute myocardial infarction Mother Acute myocardial infarction Hypertension Father Acute myocardial infarction Coronary artery disease Social History Social History Smoking packs per day: 1.5 Smoking cigarettes per day: 30.0 Years smoked: 15 Smoking pack-years: 22.50 Smoking status: Former smoker Tobacco type: cigarettes Smoking end date: 02/08/87 Alcohol intake: current Drinks per week: 14 Substance use: never Substance use type: does not use Gender identity (if verbalized by the patient): Male Spiritual care concerns: No Agree to blood products: Yes Meds Home Medications and Allergies Home Medications Medication Instructions Recorded Confirmed Type aspirin 81 mg PO QPM 12/17/19 02/25/20 History rosuvastatin 40 mg PO HS 12/17/19 02/25/20 History pantoprazole [Protonix] 40 mg PO BID 56 Days #112 tablet 12/25/19 02/25/20 Rx folic acid-B icll-N-aleej-zinc 1 tablet PO DAILY 02/15/20 02/25/20 History ferrous sulfate 325 mg PO BID 02/18/20 02/25/20 History Allergies Allergy/AdvReac Type Severity Reaction Status Date / Time No Known Allergies Allergy Verified 02/25/20 08:57 Vital Signs Vital Signs - 24 hr 02/25/20 09:37 Temperature 36.8 C Pulse Rate 66 Respiratory Rate 12 Blood Pressure 123/68 Pulse Oximetry 100 Exam Const: General: cooperative, healthy appearing, no acute distress and well developed; No confusion Orientation/consciousness: patient oriented x3 and No confusion HENMT: Head: normal to inspection, normocephalic
[2020-02-25] MEDS: LIDO 1%/EPINEPHRINE 1:100,000 20 ML VIAL 10 ML INFILTRATE (11:14)
[2020-02-25] MEDS: ceFAZolin 2 GM/D5W 50 ML 2 GM/50 ML BAG IVPB (11:14)
--- NOTE | 2020-02-25 11:45 | SUR.OPER ---
EBL:5cc
[2020-02-25 11:55] VITALS: BP 103/63; PULSE 69; RESP 15; O2SAT 100
[2020-02-25 12:35] VITALS: BP 112/63; PULSE 58; RESP 13
[2020-02-25 12:45] VITALS: BP 113/65; PULSE 57; RESP 14
--- NOTE | 2020-02-25 13:27 | PM.PROC ---
Procedure Note - Detailed Date of procedure: 02/25/20 Pre-op diagnosis: Acute Kidney Injury resolved renal failure Post-op diagnosis: same Procedure performed: removal RIJ tunneled hemodialysis catheter Description of procedure: The patient was taken into the operating room and placed in the supine position. After adequate induction of mac anesthesia, the patient was prepped and draped in normal sterile fashion. A time-out was then done to verify the patient's identity as well as the procedure being performed. I began by locally anesthetizing the exit site in the right chest. Once this was done, I gently pulled on the catheter. It was noted that the catheter was well incorporated around the area of the cuff. Given this, I went ahead and localized around the cuff. I made a counter incision around the area of the cuff. I then used a hemostat to bluntly dissect around the area of the cuff. Once this was done, I was able to gently pull on the catheter and removed the catheter in full. I then held pressure for approximately 5 minutes at the area of the right internal jugular vein. No bleeding was noted. I then closed the counter incision with 4 O Monocryl subcuticular suture. Dermabond was then placed on the both wounds. The patient tolerated the procedure well, was awake and alert the operating room postoperatively. He will be sent to the recovery room in stable condition. Anesthesia: MAC and local Surgeon: Kendra Gomez MD Estimated blood loss (mL): 5 Drains: No Packing: No Pathology: none sent Complications: No immediate complications Condition: stable Disposition: PACU Findings: RIJ TDC removed in full
== END 2020-02-25 12:54 | disposition home or self-care (01) ==
PROVIDERS: Anesthesiology; PCP Family Medicine Sports Medicine; Visit Provider Surgery
PROC: (CPT 49422; principal; 2020-02-25 11:00)
DX: Z45.2 Encounter for adjustment and management of vascular access device (principal); I10 Essential (primary) hypertension; E78.5 Hyperlipidemia, unspecified; E11.40 Type 2 diabetes mellitus with diabetic neuropathy, unspecified; Z79.82 Long term (current) use of aspirin; Z87.448 Personal history of other diseases of urinary system; Z87.891 Personal history of nicotine dependence
CPT/HCPCS: 36589; 36415; 85014; 85018; J0690; J2704; J3010; J7120

== ENCOUNTER → 2020-11-15 10:33 | Outpatient (REF) | payer OTHER, SELFPAY | LOC: ANHLAB 10:33 | PROVIDERS: PCP Family Medicine Sports Medicine; Visit Provider Nurse Practitioner | DX: L98.9 Disorder of the skin and subcutaneous tissue, unspecified (principal) | CPT/HCPCS: 88305 ==

== ENCOUNTER → 2020-11-21 14:56 | Outpatient (REF) | payer OTHER, SELFPAY | LOC: ANHLAB 14:56 | PROVIDERS: PCP Family Medicine Sports Medicine; Visit Provider Nurse Practitioner | DX: D49.2 Neoplasm of unspecified behavior of bone, soft tissue, and skin (principal) | CPT/HCPCS: 88305; 88342 ==

== ENCOUNTER 2023-10-09 15:11 | Outpatient (CLI) | payer MEDICARE, SELFPAY ==
[2023-10-09 18:33] LABS: Iron 69 ug/dL (49-181)
[2023-10-09 18:43] LABS: Percent Iron Saturation 26 % (20-50)
== END 2023-10-09 15:12 | disposition home or self-care (01) ==
LOC: ANHLAB 15:15
PROVIDERS: PCP Family Medicine Sports Medicine; Visit Provider Internal Medicine Hematology & Oncology
DX: D64.9 Anemia, unspecified (principal)
CPT/HCPCS: 36415; 82728; 83540; 83550

== ENCOUNTER 2023-10-17 11:40 | Emergency (ER) | payer MEDICARE, SELFPAY ==
[2023-10-17 12:21] VITALS: BP 152/78; PULSE 66; RESP 16; TEMP 36.6; O2SAT 100
--- NOTE | 2023-10-17 12:26 | ECG_ITS ---
Measurements Intervals [place] Rate: 68 P: 60 [place]: 208 QRS: -1 QRSD: 92 T: 33 QT: 408 QTc: 435 Interpretive Statements SINUS RHYTHM WITH FREQUENT VENTRICULAR PREMATURE COMPLEXES COMPARED TO ECG 12/17/2019 19:55:24 NO SIGNIFICANT CHANGES Electronically Signed On 10-17-2023 15:03:17 STORAGE BRINE WORKER by Sterling Garcia M.D.
[2023-10-17 12:28] VITALS: BP 152/84; PULSE 67; RESP 16; O2SAT 100
== END 2023-10-17 15:29 | disposition left against medical advice (07) ==
PROVIDERS: Emergency Provider Emergency Medicine; PCP Family Medicine
DX: I10 Essential (primary) hypertension (principal)
CPT/HCPCS: 93005; 99199

== ENCOUNTER 2024-10-05 10:29 | Outpatient (CLI) | payer MEDICARE, SELFPAY ==
[2024-10-05 10:41] LABS: Basophils Percent Auto 0.3 % (0.2-1.2); Eosinophils Absolute Auto 0.1 K/mm3 (0-0.3); Eosinophils Percent Auto 1.4 % (0-4.4); Hematocrit 42.4 % (42.0-52.0); Hemoglobin 13.9 g/dL (14.0-18.0); Immature Granulocyte Absolute 0.01 K/mm3 (0.00-0.031); Immature Granulocyte Percent A 0.2 % (0-0.5); Lymphocytes Absolute Auto 1.01 K/mm3 (0.9-3.2); Lymphocytes Percent Auto 15.9 % (18.3-44.2); Mean Corpuscular HGB Conc 32.8 g/dl (32-36); Mean Corpuscular Hemoglobin 31.7 pg (26-34); Mean Corpuscular Volume 96.6 fl (80-100); Mean Platelet Volume 8.8 fl (7.4-10.4); Monocytes Absolute Auto 0.5 K/mm3 (0.1-0.6); Monocytes Percent Auto 7.1 % (2.6-8.5); Neutrophils Absolute Auto 4.8 K/mm3 (1.3-6.7); Neutrophils Percent Auto 75.1 % (45.5-73.1); Platelet Count Result 204 k/mm3 (150-375); Red Blood Count 4.39 M/mm3 (4.6-6.20); Red Cell Distribution Width 14.1 % (11.5-14.5); White Blood Count 6.4 K/mm3 (4.5-10.0)
--- OUTSIDE RECORDS SUMMARY | 2024-10-05 11:33 | XMS_ITS | Clinical Summary ---
Author Organization [facility] Address [address] [place] [address] Care Team Providers Care Strong Nitric Operator Name Role Phone Arturo Livingston MD Primary Care Provider [phone] Allergies No known active allergies Medications rosuvastatin (CRESTOR) 40 mg tablet TAKE 1 TABLET BY MOUTH EVERY DAY 12/19/19 20 Active aspirin (ECOTRIN EC) 81 mg Tablet, Delayed Release (E.C.) Take 81 mg by mouth daily. Active ferrous sulfate 325 mg (65 mg iron) tablet 12/24/19 20 Active acetaminophen (TylenoL) 325 mg Capsule 650 mg. Two tablets prn 12/26/19 20 Active bmrxitea-pku-K T-qratoag-mrdw in (Centrum Silver Men) 300-600-300 mcg Tablet Active BD Integra Syringe 3 mL 25 gauge x 1 Syringe USE DIRECTED FOR BRONCHITIS 06/23/20 20 Active cyanocobalamin (VITAMIN B-12) 1,000 mcg/mL Solution INJECT 1ML INTRAMUSCULARLY EVERY 30 DAYS 3 mL 2 03/09/20 21 Active cholecalcifero l, Vitamin D3, 125 mcg (5,000 unit) Capsule Take 5,000 Units by mouth daily. Active Active Problems Problem Noted Date Diagnosed Date Skin lesion of back 10/07/2020 Chronic anemia 02/15/2020 Vitamin B12 deficiency anemia 02/15/2020 Encounters Date Type Department Care Team Description 09/30/2024 External Device Data STL ABSTRACTION Provider, Abstract 09/29/2024 External Device Data STL ABSTRACTION Provider, Abstract 09/23/2024 External Device Data STL ABSTRACTION Provider, Abstract from Last 3 Months Family History Relation Name Status Comments Brother 1 Brother 2 Daughter Alive Father Mother Son Alive Social History Tobacco Use Types Packs/Day Years Used Date Smoking Tobacco: Former Cigarettes 1.5 20 0 01/28/1970 - 01/28/1990 Smokeless Tobacco: Never Tobacco Cessation:Counseling Given: Not Answered Alcohol Use Standard Drinks/Week Comments Not Currently 0 (1 standard drink = 0.6 oz pur e alcohol) Sex and Gender Information Value Date Recorded Sex Assigned at Not on file Legal Sex Male 9:07 AM CDT Gender Identity Not on file Sexual Orientation Not on file Last Filed Vital Signs Vital Sign Reading Time Taken Comments Blood Pressure 169/129 10/17/2023 9:44 AM MULTI MEDIA SPECIALIST Pulse 65 10/18/2022 9:40 AM MULTI MEDIA SPECIALIST Temperature 35.8 ??C (96.5 ??F) 10/17/2023 9:42 AM CS T Respiratory Rate 14 10/17/2023 9:42 AM MULTI MEDIA SPECIALIST Oxygen Saturation 100% 10/18/2022 9:40 AM MULTI MEDIA SPECIALIST Inhaled Oxygen Concentration - - Weight 92.5 kg (204 lb) 10/17/2023 9:42 AM MULTI MEDIA SPECIALIST Height 188 cm (6' 2 ) 10/19/2021 9:45 AM MULTI MEDIA SPECIALIST Body Mass Index 26.19 10/19/2021 9:45 AM MULTI MEDIA SPECIALIST Plan of Treatment Upcoming Encounters Date Type Department Care Team (Late st Contact Info) Description 10/19/2024 10:00 AM MULTI MEDIA SPECIALIST Office Visit [facility] Oncology and Hematology - [place] [address] [place] [address] Leif Clinton MD [address] [place] [address] Health Maintenance Due Date Last Done Comments Pre-Diabetes and Diabetes Screening 1955 DTAP/TDAP/TD VACCINES (1 - Tdap) 1973 FIT-DNA Q 3 years 1999 FIT/FOBT Q 1 year 1999 Flex Sig/CT Colonography Q 5 years 1999 PNEUMOCOCCAL VACCINE 65+ YEARS (1 of 1 - PCV) 04/06/20 04 ZOSTER VACCINE (1 of 2) 2004 Abdominal Aortic Aneurysm (AAA) Screening 2019 INFLUENZA VACCINE (#1) 2024 05/24/2022 Medicare Advantage ([place]) Prev entative Visit/Annual Wellness Visit 09/09/2024 RSV VACCINE (60+ or ) (1 - 1-dose 75+ series) 2029 COLORECTAL SCREENING 07/26/2032 07/26/2022 Colorectal Cancer Screening 07/26/2032 Insurance HUMANA CHOICE PPO MCR Care Teams Strong Nitric Operator Relationship Specialty Start Date End Date Arturo Livingston MD [facility] [place] [address] PCP - General Family Practice 10/19/21
--- OUTSIDE RECORDS SUMMARY | 2024-10-05 11:33 | XMS_ITS ---
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 06/22/2020 Vitamin B12 deficien cy anemia Medications Date Name Route Dose Frequency Instructions Start Date End Date Status Aspirin Oral orally 1.0 tablet ,chewa ble daily quantity sufficient for 30 days; 2 refills active Ferrous Sulfate Oral orally 325.0 2 times per day active 2019 vitamin B12 1 MG/ML Injectable Solution intramuscularly 1000.0 mcg every 14 days 020 active Problems Diagnosis Status Date of Diagnosi s Vitamin B12 deficiency anemia Active High cholesterol Active 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
--- OUTSIDE RECORDS SUMMARY | 2024-10-05 11:34 | XMS_ITS | Continuity of Care Document ---
Author Organization [facility] Address [address] [place] [address] Phone Care Team Providers Care Gill Box Operator Name Role Phone Jose Lea MD Unavailable Unavailable Medications Medication Instructions Dosage Effective Dates (start - stop) Status Comments Crestor 20 mg tablet take 1 tablet by oral route every day 20 MG - Active losartan 100 mg-hydrochlorothiaz areli 12.5 mg tablet take 1 tablet by oral route every day 1.00 tablet - Active Adult Low Dose Aspirin 81 mg tablet,delayed release take 1 tablet by oral route every day 81 MG - Active Procedures Procedure Date SCREENING COLONOSCOPY ; HIGH RISK Advance Directives Directive Yes / No Effective Date File Name No Information Encounters Encounter Description Practice Location Reason(s) For Visit Diagnoses Date Provider Providers Copied on Encounter [facility], [address], [place], [place], [id number], tel:[phone] [facility] No Information Venu Garcia. [address], [id number], [place]. tel:[phone] Referring Provider: Arturo Livingston, [address] [place] [address], [address]. tel:[phone] [facility], [address], [place], [place], [id number], tel:[phone] [facility] No Information Venu Garcia. [address], [id number], . tel:[phone] Family History Family Member Type Diagnosis Age At Onset No Information Payers Payer name Insurance type Covered constitution party ID Authoriza tion(s) HUMANA MDCR PPO PHAN [id number] Social History Type Description Quantity Date Captured Comments Sex Male Smoking Status No Information Chief Complaint And Reason For Visit No Information Reason For Referral Reason For Referral No Information History Of Present Illness Encounter Date Complaint History Of Prese nt Illness No Information Functional Status Date Functional Assessmen t No Information Instructions Date Instruction Additional Infor mation No Information Assessments Type Assessment Date No Information Patient Care Teams Name Effective Dates (start - stop) Status Members No Information
--- OUTSIDE RECORDS SUMMARY | 2024-10-05 11:34 | XMS_ITS ---
Author Organization [facility] ([facility]) Address [address] [place] [address] Care Team Providers Care Reference Library Assistant Name Role Phone Unavailable Unavailable Unavailable Allergies, Adverse Reactions, Alerts This patient has no known allergies or adverse reactions. Problems This patient has no known problems.
--- OUTSIDE RECORDS SUMMARY | 2024-10-05 11:34 | XMS_ITS | CCD ---
Author Name Interface, [id number] [address] Organization [facility] [place] [address] Allergies and Adverse Reactions Medication/Group Name Reaction Severity Date No known allergies Care Plan Date Type Value 06/22/2020 LABORDER CBC With Diff an d Plt Reason for Visit NEW HEMATOLOGY Encounters Date Name 06/22/2020 Vitamin B12 deficien cy anemia Medications Date Name Route Dose Frequency Instructions Start Date End Date Status Aspirin Oral orally 1.0 tablet,c hewable daily quantity sufficient for 30 days; 2 refills active Ferrous Sulfate Oral orally 325.0 2 times per day active Problems Diagnosis Status Date of Diagnosi s Vitamin B12 deficiency anemia Active High cholesterol Active 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
--- OUTSIDE RECORDS SUMMARY | 2024-10-05 11:34 | XMS_ITS | Clinical Summary ---
Author Organization [facility] Address [address] [place] [address]. [place], [place] [address] [place] [address] Care Team Providers Care Plastic Card Grader Cardroom Name Role Phone Unavailable Primary Care Provider Unavailabl e Social History Tobacco Use Types Packs/Day Years Used Date Smoking Tobacco: Never Assessed Sex and Gender Information Value Date Recorded Sex Assigned at Not on file Legal Sex Male 7:23 PM CDT Gender Identity Not on file Sexual Orientation Not on file Plan of Treatment Health Maintenance Due Date Last Done Comments Colorectal Cancer Screening Colonoscopy (10 Years) 1954 Hepatitis C 1972 DTaP, Tdap and Td Vaccines ( 1 - Tdap) 1973 Zoster Vaccines (1 of 2) 2004 Pneumococcal Vaccine: 65+ Ye ars (1 of 1 - PCV) 2019 COVID-19 Vaccine ( - 2023-2 5 season) 2024 Influenza Adult (#1) 2024 RSV Immunization or 60+ Years (1 - 1-dose 75+ series) 2029 Meningococcal B Vaccine Aged Out No l onger eligible based on patient's age to complete this topic Meningococcal Vaccine Aged Out No marcel yonatan eligible based on patient's age to complete this topic RSV Immunizations Under 20 Months Aged Out No longer eligible based on patient's age to complete this topic
--- OUTSIDE RECORDS SUMMARY | 2024-10-05 11:34 | XMS_ITS | Clinical Summary ---
Author Organization [facility] Address [address] [place] [address] Phone Care Team Providers Care Telephone Supervisor Name Role Phone Arturo Livingston MD Primary Care Provider [phone] Allergies No known active allergies Medications Medication Sig Dispensed Refills Start Date End Date Status aspirin EC 81 MG EC tablet Take 81 mg by mouth daily Active B Agecpcc-H-Jtwpr Acid (GUSTAVO-CATALINO) tablet Take 1 tablet by mouth 1 (one) time each day 01/05/2020 Active rosuvastatin (CRESTOR) 40 MG tablet Take 40 mg by mouth 1 (one) time each day 12/19/2019 Active Active Problems Problem Noted Date Diagnosed Date Chronic anemia 02/15/2020 Vitamin B12 deficiency anemia 02/15/2020 Acute kidney failure 02/08/2020 Essential hypertension 02/08/2020 Family History Medical History Relation Comments Kidney disease Neg Hx Social History Tobacco Use Types Packs/Day Years Used Date Smoking Tobacco: Former Smokeless Tobacco: Never Alcohol Use Standard Drinks/Week Comments Not Currently 0 (1 standard drink = 0.6 oz pur e alcohol) Sex and Gender Information Value Date Recorded Sex Assigned at Not on file Gender Identity Not on file Sexual Orientation Not on file Last Filed Vital Signs Vital Sign Reading Time Taken Comments Blood Pressure 128/70 05/11/2020 9:57 AM CDT Pulse 84 05/11/2020 9:57 AM CDT Temperature 36.2 ??C (97.1 ??F) 05/11/2020 9:57 AM CD T Respiratory Rate - - Oxygen Saturation - - Inhaled Oxygen Concentration - - Weight 86.2 kg (190 lb) 05/11/2020 9:57 AM CDT Height 188 cm (6' 2 ) 05/11/2020 9:57 AM CDT Body Mass Index 24.39 05/11/2020 9:57 AM CDT Plan of Treatment Health Maintenance Due Date Last Done Comments Pneumococcal PPSV23/PCV13 65 + Years / Low and Medium Risk (1 of 4 - PCV) 2019 Influenza Vaccine (#1) 2024 Care Teams Telephone Supervisor Relationship Specialty Start Date End Date Arturo Livingston MD PCP - General Family Medicine 02/04/20
[2024-10-05 12:46] LABS: Iron 93 ug/dL (49-181)
[2024-10-05 12:52] LABS: Anion Gap 8 mmol/L (4-12); Blood Urea Nitrogen 24 mg/dL (9-20); Calcium 9.2 mg/dL (8.4-10.2); Carbon Dioxide 29 mmol/L (22-30); Chloride 103 mmol/L (98-107); Estimated Glomerular Filt Rate > 60; Glucose 80 mg/dL (65-110); Potassium 4.1 mmol/L (3.4-5.0); Sodium 140 mmol/L (137-145)
[2024-10-05 12:55] LABS: Percent Iron Saturation 35 % (20-50)
[2024-10-05 13:52] LABS: Folic Acid > 20.0 ng/mL (2.76->20)
== END 2024-10-05 10:30 | disposition home or self-care (01) ==
LOC: ANHLAB 10:30
PROVIDERS: PCP Family Medicine; Visit Provider Internal Medicine Hematology & Oncology
DX: D64.9 Anemia, unspecified (principal)
CPT/HCPCS: 36415; 80048; 82607; 82728; 82746; 83540; 83550; 85025